=== PATIENT | male | born 2000 | race Caucasian/White ===

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

== ENCOUNTER 2020-05-21 11:09 | Outpatient (CLI) | payer BC, SELFPAY ==
--- NOTE | ~2020-05-21 | XR_ITS ---
XR abdomen/kub 1V DATE: 05/21/2020 11:27 INDICATION: Left renal stone TECHNIQUE: AP projection, 2 views COMPARISON: 06/26/2019 KUB FINDINGS: There are multiple calcifications overlying the lower pole of the left kidney large calcifi ed calculus overlying left renal pelvis noted on 06/26/2019 is no longer evident. No right renal calci fied calculi are evident. No calcified calculi overlying the ureters. The foot shadows are intact. No visceromegaly is evident. No evidence of bowel obstruction. Included skeletal structures are unremarkable. IMPRESSION: Lower pole left nephrolithiasis Reviewed, dictated and finalized at Location A. Reviewed, dictated and finalized at location A. ANALYST
== END 2020-05-21 11:10 | disposition home or self-care (01) ==
LOC: ANHIMG 11:18
PROVIDERS: PCP Internal Medicine; Visit Provider Urology
DX: N20.0 Calculus of kidney (principal)
CPT/HCPCS: 74018

== ENCOUNTER → 2020-06-24 09:51 | Outpatient (CLI) | payer BC, SELFPAY ==
--- NOTE | ~2020-06-24 | XR_ITS ---
EXAMINATION: XR abdomen/kub 1V INDICATION: Left renal stone TECHNIQUE: Supine views of the abdomen were obtained on 2 radiographs. COMPARISON: 05/21/2020 FINDINGS: There is a 9 mm stone in the lower pole of the left kidney. A 7 mm stone is present in the upper pole of the left kidney. No additional urinary tract calculi are identified. The bowel gas kwaku she is normal. The visualized osseous structures are unremarkable. IMPRESSION: 1. Left nephrolithiasis. Reviewed, dictated and finalized at location A. 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 Left nephrolithiasis.
--- NOTE | ~2020-06-24 | CT_ITS ---
EXAMINATION: CT abdomen pelvis wo con DATE: 06/24/2020 10:07 INDICATION: Left renal stone TECHNIQUE: Computed tomography (CT) of the abdomen and pelvis was performed without intravenous contr ast. The dose-length product (DLP) was 604.62 mGy-cm. Automated exposure control and iterative recons truction technique were employed. COMPARISON: 06/24/2019 FINDINGS: The lung bases are clear. The heart size is normal. The liver is diffusely low in attenuati on when compared with the spleen, consistent with hepatic steatosis. The spleen, pancreas, gallbladde r, and adrenal glands are normal. There is a 6 mm stone in the left kidney upper pole and a 10 mm sto ne in the left kidney lower pole. No stones are present in the right kidney, the ureters, or the blad makenzie. There is no hydronephrosis or hydroureter. No pathologically enlarged abdominal or pelvic lymph nodes are identified. There is no free intraperitoneal gas or evidence of bowel obstruction. The appe ndix is normal. There is a small fat-containing umbilical hernia. The visualized osseous structures a re unremarkable. IMPRESSION: 1. Nonobstructing left nephrolithiasis. 2. Diffuse hepatic steatosis. Reviewed, dictated and finalized at location A. CTOR ORGANIZATIONAL
== END ==
PROVIDERS: Visit Provider Urology
DX: N20.0 Calculus of kidney (principal); K76.0 Fatty (change of) liver, not elsewhere classified
CPT/HCPCS: 74018; 74176

== ENCOUNTER 2020-11-30 12:20 | Outpatient (CLI) | payer BC, SELFPAY ==
--- NOTE | ~2020-11-30 | XR_ITS ---
XR abdomen/kub 1V DATE: 11/30/2020 12:46 INDICATION: Left renal stone TECHNIQUE: 2 AP projections of the abdomen COMPARISON: 06/24/2020 KUB FINDINGS: Prominent calcification or calcifications overlying the left ureterovesical junction, appar ently previously situated in the upper pole left kidney on 06/24/2020. Stable prominent lower pole left renal calcified calculus. The psoas shadows are intact. No visceromegaly is evident. There is no evidence of bowel obstruction. Included skeletal structures are unremarkable. IMPRESSION: Prominent calcified calculus or calculi at left ureterovesical junction, displaced from t he upper pole left kidney since 06/24/2020 Stable prominent lower pole left renal calcified calculus or calculi Reviewed, dictated and finalized at Location A. Reviewed, dictated and finalized at location A. IMPRESSION: Prominent calcified calculus or calculi at left ureterovesical junc tion, displaced from the upper pole left kidney since 06/24/2020 Stable prominent lower pole left renal calcified calculus or calculi
== END 2020-11-30 12:21 | disposition home or self-care (01) ==
LOC: ANHIMG 12:27
PROVIDERS: Visit Provider Urology
DX: N20.0 Calculus of kidney (principal); N28.89 Other specified disorders of kidney and ureter
CPT/HCPCS: 74018

== ENCOUNTER 2020-12-03 10:58 | Outpatient (CLI) | payer BC, SELFPAY | END 2020-12-03 10:59 | disposition home or self-care (01) | PROVIDERS: Visit Provider Urology | DX: Z01.818 Encounter for other preprocedural examination (principal); N20.0 Calculus of kidney | CPT/HCPCS: 87086 ==

== ENCOUNTER 2020-12-07 02:14 | Day surgery (SDC) | payer BC, SELFPAY ==
[2020-12-02 13:32] VITALS: BMI 35.4
--- NOTE | 2020-12-06 13:44 | WPDANESEPPF ---
Anes - Initial Pre Proc Eval Procedure: Operation Date: 12/07/20 13:30 Proposed Procedures p Cystoscopy, Left Ureteroscopy, Stone Extraction, Possible Retrograde Pyelogram, Possible Stent Placement, - Tim Maldonado MD s Possible Holmium Laser Procedure - Tim Maldonado MD Date/Time: 12/06/20 13:44 Surgeon: Tim Maldonado MD Pre Op Diagnosis: left ureteral stones, left renal stones Patient Data Age: 20 Gender: M Height: 1.6 m Weight: 90.75 kg Allergies Allergy/AdvReac Type Severity Reaction Status Date / Time amoxicillin [From Augmentin] AdvReac Mild Rash Verified 12/07/20 10:35 clavulanic acid AdvReac Mild Rash Verified 12/07/20 10:35 [From Augmentin] Home Medications Medication Instructions Recorded Confirmed Type alprazolam 0.25 mg PO PRN PRN 12/02/20 12/07/20 History dexmethylphenidate [Focalin XR] 20 mg PO 5XW 12/02/20 12/07/20 History multivitamin,gv-oeti-luadaore 1 tablet PO DAILY 12/02/20 12/02/20 History [Complete Multivitamin] sertraline 50 mg PO QAM 12/02/20 12/07/20 History tamsulosin 0.4 mg PO DAILY 12/02/20 12/07/20 History tramadol 50 mg PO Q6H PRN 12/02/20 12/07/20 History acetaminophen 1,000 mg PO Q4-6H PRN 12/07/20 12/07/20 History sulfamethoxazole-trimethoprim 1 tablet PO BID 12/07/20 12/07/20 History Patient hx anesthesia problems: none Family hx anesthesia problems: none PMFSH Past Medical History Medical History (Updated 12/06/20 @ 13:44 by Vin Bolivar MD) ADHD Anxiety Asthma Kidney stones Obesity Surgical History Surgical History (Updated 06/24/19 @ 11:39 by Dmitriy Wade) No significant past surgical history Social History Social History (Updated 06/24/19 @ 11:39 by Dmitriy Wade) Smoking status: Never smoker Living arrangements: with family Spiritual care concerns: No Anes - Eval Final PreProcedure Day of Procedure 12/06/20 13:44 Patient weight: obese Heart: regular rate and rhythm Lungs: clear to auscultation and normal air movement Airway: Mallampati scale class II Neurological: alert and oriented Last oral intake: >/= 8 hours ASA classification: III Emergent: no Anesthetic plan: proceed Anesthesia type and monitoring: general LMA Informed Consent: The patient's anesthetic plan and its attendant risks and benefits were discussed with the patient/family/POA. Questions were solicited and answers provided to the satisfaction of the patient/family/POA.
[2020-12-07] VITALS (8 sets, daily range): BP systolic 107–132; BP diastolic 62–84; PULSE 76–106; RESP 11–20; TEMP 36.3–36.6; O2SAT 95–99
--- NOTE | ~2020-12-07 | CT_ITS ---
EXAMINATION: CT abdomen pelvis wo con DATE: 12/07/2020 13:34 INDICATION: Left flank pain. TECHNIQUE: Computed tomography (CT) of the abdomen and pelvis was performed without intravenous contr ast. Automated exposure control and iterative reconstruction technique were employed. The dose-length product was 320.03 mGy-cm. COMPARISON: CT abdomen and pelvis 06/24/2020 FINDINGS: The visualized portions of the lung bases are clear without pneumonia or pleural effusion. The heart size is normal. No pericardial effusion. There is a 17 mm cyst to the left of the heart, co nsistent with a pericardial cyst. There is diffuse hepatic steatosis. The gallbladder, spleen, pancre as, adrenal glands, and right kidney are normal. There are 8 mm and 5 mm stones in left kidney. There are 6 mm and 5 mm stones at left ureterovesicular junction with mild left hydroureter. There are no dilated loops of bowel. The appendix is normal. There are no pathologically enlarged lymph nodes. The re is no free intraperitoneal fluid. There are Schmorl's nodes at multiple levels in the spine. IMPRESSION: 1. 6 mm and 5 mm stones at left ureterovesicular junction with mild left hydroureter. 2. Nonobstructing left kidney stones. Reviewed, dictated and finalized at location A. IMPRESSION: 1. 6 mm and 5 mm stones at left ureterovesicular junction with mild left hydrou reter. 2. Nonobstructing left kidney stones.
--- NOTE | ~2020-12-07 | XR_ITS ---
EXAMINATION: XR retrograde pyelo w/stent LT DATE: 12/07/2020 15:14 INDICATION: Left ureteral stones. TECHNIQUE: 6 intraoperative fluoroscopic views of the abdomen and pelvis were obtained. I was not pre sent. Fluoroscopy exposure time was 27 seconds. COMPARISON: CT abdomen and pelvis 12/07/2020 FINDINGS: There are stones at left ureterovesicular junction and in left kidney. The stones in left u reterovesicular junction are removed. The final images demonstrate a left internal ureteral stent in expected position. IMPRESSION: 1. Removal of stones at left ureterovesicular junction. 2. Stones in left kidney. 3. Left internal ureteral stent in expected position. Reviewed, dictated and finalized at location A.
[2020-12-07] MEDS: LACTATED RINGERS 1,000 ML 30 ML IV CONT (11:05)
--- NOTE | 2020-12-07 12:23 | SUR.PREOP ---
1215-PT AND MOM AWARE SURGEON DELAYS SELF ADDITIONAL 1 HOUR.
--- NOTE | 2020-12-07 13:13 | WPDHPUPDATE1 ---
History and Physical Update Update Date/Time: 12/07/20 13:13 History and Physical has been reviewed, including an updated exam of the patient. There are NO changes in the patient's condition. Risks, benefits, and alternatives have been discussed and questions answered. Patient agrees to proceed with procedure. Proceed with cysto, left ureteroscopy , stone extraction, rpg, possible holmium laser.
--- NOTE | 2020-12-07 13:32 | SUR.PREOP ---
1320-TO CT SCAN PER W/C. 1330-RETURNED FROM CT SCAN.
[2020-12-07] MEDS: ceFAZolin 2 GM/D5W 50 ML 2 GM/50 ML BAG IVPB (14:38)
[2020-12-07] MEDS: LIDOCAINE HCL 2% GEL UROJET 10 ML PKG MUCOUS MEM (15:01)
--- NOTE | 2020-12-07 15:17 | W.PM.PROC2 ---
Procedure Note - Detailed Date of Procedure 12/07/20 Pre-op Diagnosis left ureteral stones, left renal stones Post-op Diagnosis same Procedure Performed Cystoscopy, left retrograde pyelogram, left ureteroscopy with holmium laser stone extraction left stent placement, urethral dilation Surgeon Tim Maldonado MD Anesthesia general Description of Procedure Patient is taken the operative suite correctly identified. Once anesthesia was obtained was placed in dorsal lithotomy position and prepped and draped usual sterile fashion. Nineteen [place] scope would not pass and thus we needed to dilate the meatus up to 22 [place]. A 19 [place] scope was then placed. Bladder was inspected its entirety there was no tumor. Left orifice was cannulated with a guidewire. We dilated with 8 [place] dilator. A rigid ureteral scope was then inserted but the stone was too large to retrieve 1 piece. Actually were 2 stones there 6 mm in a 5 mm. Using a 273 micron fiber we fragmented the stone multiple pieces. We sent some of these for analysis. Reinspection revealed no residual stones. Pyelogram was then performed to confirm placement of the stent. Proximal end was coiled in the renal pelvis distal in the bladder. Bladder was drained. 2% viscous lidocaine was inserted urethra patient is taken recovery stable condition. He will follow up in a week's time for stent removal. He will eventually need lithotripsy of this left lower pole stone. Drains Yes Packing No Pathology yes Complications No immediate complications Condition stable Disposition PACU
[2020-12-07] MEDS: fentaNYL CITRATE INJ (*CRX) 100 MCG/2 ML VIAL 25 MCG IV PUSH ×5 (15:46→16:54)
[2020-12-07] MEDS: oxyCODONE HCL (*CRX) 5 MG TAB IR PO (16:37)
== END 2020-12-07 17:05 | disposition home or self-care (01) ==
PROVIDERS: Visit Provider Urology
PROC: (CPT 52352; principal; 2020-12-07 12:30)
PROC: (CPT 52356; 2020-12-07 12:30)
DX: N20.2 Calculus of kidney with calculus of ureter (principal); J45.909 Unspecified asthma, uncomplicated; F90.9 Attention-deficit hyperactivity disorder, unspecified type; E66.9 Obesity, unspecified; Z68.36 Body mass index [BMI] 36.0-36.9, adult; Z79.899 Other long term (current) drug therapy
CPT/HCPCS: 52356; 74176; 74420; 82365; 87086; 88300; A9270; C1769; C2617; J0690; J1100; J2250; J2405; J2704; J3010; J7120; Q9966

== ENCOUNTER 2021-02-08 15:45 | Outpatient (CLI) | payer BC, SELFPAY ==
[2021-02-08 16:17] LABS: INR 0.9; Prothrombin Time 12.4 Seconds (11.1-14.7)
[2021-02-08 16:25] LABS: Add Urine Microscopic? YES; Appearance Urine Clear (Clear); Bilirubin Urine Negative (Negative); Blood Urine 2+ (Negative); Color Urine Yellow (Yellow); Glucose Urine UA Negative (Negative); Ketones Urine Negative (Negative); Leukocyte Esterase Ur Trace LEU/UL (Negative); Mucus Urine Rare /lpf; Nitrate Urine Negative (Negative); Protein Urine Negative (Negative); Specific Grav Ur 1.011 (1.001-1.035); Urobilinogen Urine Negative mg/dL (<2.0)
== END 2021-02-08 15:46 | disposition home or self-care (01) ==
LOC: ANHLAB 15:47
PROVIDERS: Visit Provider Urology
DX: Z01.818 Encounter for other preprocedural examination (principal); N20.0 Calculus of kidney
CPT/HCPCS: 36415; 81001; 85610; 85730; 87086

== ENCOUNTER 2021-02-11 01:36 | Day surgery (SDC) | payer BC, SELFPAY ==
[2021-02-07 12:53] VITALS: BMI 34.0
--- NOTE | ~2021-02-11 | XR_ITS ---
EXAMINATION: XR abdomen/kub 1V INDICATION: Nephrolithiasis TECHNIQUE: Supine views of the abdomen were obtained on 2 radiographs. COMPARISON: 11/30/2020 FINDINGS: There is a 1.4 cm stone of the left kidney lower pole. No stones are identified in the righ t kidney or along the expected courses of the ureters or bladder. The visualized lung bases are clear . The bowel gas pattern is normal. IMPRESSION: 1. Stable left nephrolithiasis. Reviewed, dictated and finalized at location A.
[2021-02-11] MEDS: LACTATED RINGERS 1,000 ML 30 ML IV CONT (07:20)
--- NOTE | 2021-02-11 07:21 | WPDHPUPDATE1 ---
History and Physical Update Update Date/Time: 02/11/21 07:21 History and Physical has been reviewed, including an updated exam of the patient. There are NO changes in the patient's condition. Risks, benefits, and alternatives have been discussed and questions answered. Patient agrees to proceed with procedure.
[2021-02-11 07:30] VITALS: BP 111/61; PULSE 83; RESP 16; TEMP 36.5; O2SAT 98
--- NOTE | 2021-02-11 07:56 | WPDANESEPPF ---
Anes - Initial Pre Proc Eval Procedure: Operation Date: 02/11/21 08:30 Proposed Procedures p Left Ureteral Extracorporeal Shock Wave Lithotripsy - Tim Maldonado MD Date/Time: 02/11/21 07:56 Surgeon: Tim Maldonado MD Pre Op Diagnosis: left ureteral stone Patient Data Age: 20 Gender: M Height: 1.63 m Weight: 92.4 kg Last Vital Signs Temp 36.5 C 02/11/21 07:30 Pulse 83 02/11/21 07:30 Resp 16 02/11/21 07:30 BP 111/61 02/11/21 07:30 Pulse Ox 98 02/11/21 07:30 Allergies Allergy/AdvReac Type Severity Reaction Status Date / Time amoxicillin [From Augmentin] AdvReac Mild Rash Verified 02/11/21 07:03 clavulanic acid AdvReac Mild Rash Verified 02/11/21 07:03 [From Augmentin] Home Medications Medication Instructions Recorded Confirmed Type alprazolam 0.25 mg PO PRN PRN 12/02/20 02/11/21 History dexmethylphenidate [Focalin XR] 10 mg PO BID 12/02/20 02/11/21 History multivitamin,do-ygdp-fawbdptj 1 tablet PO DAILY 12/02/20 02/11/21 History sertraline 50 mg PO QAM 12/02/20 02/11/21 History tamsulosin 0.4 mg PO DAILY 12/02/20 02/11/21 History tramadol 50 mg PO Q6H PRN 12/02/20 02/07/21 History acetaminophen 1,000 mg PO Q4-6H PRN 12/07/20 02/07/21 History Patient hx anesthesia problems: none Family hx anesthesia problems: none Results Review: All pre-operative results and documents have been reviewed as part of the pre-operative evaluation. [facility] Past Medical History Medical History (Updated 12/06/20 @ 13:44 by Vin Bolivar MD) ADHD Anxiety Asthma Kidney stones Obesity Surgical History Surgical History (Updated 06/24/19 @ 11:39 by Dmitriy Wade) No significant past surgical history Social History Social History (Updated 06/24/19 @ 11:39 by Dmitriy Wade) Smoking status: Never smoker Alcohol intake: current Drinks per week: 1 Substance use: never Living arrangements: with family Spiritual care concerns: No Anes - Eval Final PreProcedure Day of Procedure 02/11/21 07:56 Patient weight: obese Heart: regular rate and rhythm Lungs: clear to auscultation and normal air movement Airway: Mallampati scale class II Neurological: alert and oriented Last oral intake: >/= 8 hours ASA classification: III Emergent: no Anesthetic plan: proceed Anesthesia type and monitoring: general LMA and standard monitoring Results Review: All pre-operative results and documents have been reviewed as part of the pre-operative evaluation. Informed Consent: The patient's anesthetic plan and its attendant risks and benefits were discussed with the patient/family/POA. Questions were solicited and answers provided to the satisfaction of the patient/family/POA.
--- NOTE | 2021-02-11 09:23 | W.PM.PROC2 ---
Procedure Note - Detailed Date of Procedure 02/11/21 Pre-op Diagnosis Left renal calculus Post-op Diagnosis same Procedure Performed ESWL left renal calculus Surgeon Tim Maldonado MD Anesthesia general Description of Procedure Patient is taken the operative suite correctly identified. Once anesthesia was obtained the left renal stone was localized in both planes. Two thousand five hundred shocks were given stone. Patient tolerated procedure well without complications taken recovery stable condition. He will follow up in 7-10 days with a KUB. Drains No Packing No Pathology none sent Complications No immediate complications Condition stable Disposition PACU
[2021-02-11 09:29] VITALS: BP 108/90; PULSE 108; RESP 20; TEMP 36; O2SAT 90
[2021-02-11 09:45] VITALS: BP 109/52; PULSE 90; RESP 18; O2SAT 92
[2021-02-11 10:00] VITALS: BP 118/73; PULSE 76; RESP 10; O2SAT 90
[2021-02-11 10:15] VITALS: BP 116/77; PULSE 88; RESP 16
[2021-02-11 10:50] VITALS: BP 112/69; PULSE 69; RESP 16
== END 2021-02-11 11:15 | disposition home or self-care (01) ==
PROVIDERS: Visit Provider Urology
PROC: (CPT 50590; principal; 2021-02-11 08:30)
DX: N20.0 Calculus of kidney (principal); F90.9 Attention-deficit hyperactivity disorder, unspecified type; F41.9 Anxiety disorder, unspecified; J45.909 Unspecified asthma, uncomplicated; E66.9 Obesity, unspecified; Z68.35 Body mass index [BMI] 35.0-35.9, adult
CPT/HCPCS: 50590; 36415; 74018; 81001; 85610; 85730; 87086; J1100; J2250; J2270; J2405; J2704; J7120

== ENCOUNTER 2021-02-22 15:33 | Outpatient (CLI) | payer BC, SELFPAY ==
--- NOTE | ~2021-02-22 | XR_ITS ---
EXAMINATION: XR abdomen/kub 1V INDICATION: Left nephrolithiasis status post lithotripsy TECHNIQUE: Supine views of the abdomen were obtained on 2 radiographs. COMPARISON: 02/11/2021 FINDINGS: There is interval decrease in size of previously described left kidney lower pole stone whi ch now measures 7 mm, previously 14 mm. No stone fragments are identified along the expected course o f the left ureter. No additional urolithiasis is identified. The bowel gas pattern is normal. IMPRESSION: 1. Decrease in size in left nephrolithiasis, consistent with interval lithotripsy. Reviewed, dictated and finalized at location B. ADMINISTRATOR IMPRESSION: 1. Decrease in size in left nephrolithiasis, consistent with interval lithotrip sy.
== END 2021-02-22 15:34 | disposition home or self-care (01) ==
LOC: ANHIMG 15:37
PROVIDERS: Visit Provider Urology
DX: N20.0 Calculus of kidney (principal)
CPT/HCPCS: 74018

== ENCOUNTER 2021-04-03 04:36 | Emergency (ER) | payer BC, SELFPAY ==
[2021-04-03] VITALS (8 sets, daily range): BP systolic 132–147; BP diastolic 74–96; PULSE 78–97; RESP 16–23; TEMP 36.1–36.7; O2SAT 99–100
--- NOTE | ~2021-04-03 | CT_ITS ---
EXAMINATION: CT abdomen pelvis wo con DATE: 04/03/2021 05:46 INDICATION: Right flank pain. TECHNIQUE: Computed tomography (CT) of the abdomen and pelvis was performed without intravenous contr ast. Automated exposure control and iterative reconstruction technique were employed. The dose-length product was 371.83 mGy-cm. COMPARISON: CT abdomen and pelvis 12/07/2020 FINDINGS: The visualized portions of the lung bases demonstrate minimal atelectasis. No pleural effus ion. The heart size is normal. No pericardial effusion. There is diffuse hepatic steatosis. The gallb ladder, spleen, pancreas, and adrenal glands are normal. There is mild right hydronephrosis and hydro ureter. There is a 2 mm stone in distal right ureter. There are 5 mm and 6 mm stones in left kidney. A urachal remnant is noted. There are no dilated loops of bowel. The appendix is normal. There are no pathologically enlarged lymph nodes. There is no free intraperitoneal fluid. There are benign bone i slands in the pelvis. There is mild thoracolumbar spondylosis. IMPRESSION: 1. 2 mm stone in distal right ureter with mild right hydronephrosis and hydroureter. 2. Nonobstructing left kidney stones. Reviewed, dictated and finalized at location A. LATE FITTER IMPRESSION: 1. 2 mm stone in distal right ureter with mild right hydronephrosis and hydrour eter. 2. Nonobstructing left kidney stones.
--- NOTE | 2021-04-03 05:23 | ED.GENADULT ---
HPI - General Adult General Chief complaint: Urogenital-Male Stated complaint: Right flank pain, difficulty urination Time Seen by Provider: 04/03/21 05:15 History of Present Illness HPI narrative: Patient 21-year-old male the presents the emergency department with chief complaint of right flank pain. Patient reports the pain started approximately 330 this morning states that has had history of kidney stones patient reports the pain is not improved by anything or is worsened by anything Related Data Home Medications Medication Instructions Recorded Confirmed alprazolam 0.25 mg PO PRN PRN 12/02/20 02/11/21 dexmethylphenidate [Focalin XR] 10 mg PO BID 12/02/20 02/11/21 multivitamin,iw-[id number]-[id number] 1 tablet PO DAILY 12/02/20 02/11/21 sertraline 50 mg PO QAM 12/02/20 02/11/21 tamsulosin 0.4 mg PO DAILY 12/02/20 02/11/21 tramadol 50 mg PO Q6H PRN 12/02/20 02/07/21 acetaminophen 1,000 mg PO Q4-6H PRN 12/07/20 02/07/21 Allergies Allergy/AdvReac Type Severity Reaction Status Date / Time amoxicillin [From Augmentin] AdvReac Mild Rash Verified 04/03/21 04:43 clavulanic acid AdvReac Mild Rash Verified 04/03/21 04:43 [From Augmentin] [facility] Past Medical History Medical History (Updated 04/03/21 @ 06:53 by Ebenezer Nichols MD) ADHD Anxiety Asthma Kidney stones Obesity Surgical History Surgical History (Updated 06/24/19 @ 11:39 by Dmitriy Wade) No significant past surgical history Social History Social History (Updated 06/24/19 @ 11:39 by Dmitriy Wade) Smoking status: Never smoker Alcohol intake: current Drinks per week: 1 Substance use: never Spiritual care concerns: No Course Course Emergency Course: CT scan shows a 2 mm stone at the UVJ Vital Signs Vital signs: Vital Signs Temperature 36.7 C 04/03/21 04:40 Pulse Rate 97 04/03/21 04:40 Respiratory Rate 20 04/03/21 04:40 Blood Pressure 136/95 H 04/03/21 04:40 Pulse Oximetry 99 04/03/21 04:40 Temperature 36.7 C 04/03/21 04:40 Pulse Rate 82 04/03/21 05:21 Respiratory Rate 16 04/03/21 05:21 Blood Pressure 132/74 04/03/21 05:21 Pulse Oximetry 100 04/03/21 05:21 Medical Decision Making Vital Signs Vital Signs: Vital Signs Temperature 36.7 C 04/03/21 04:40 Pulse Rate 97 04/03/21 04:40 Respiratory Rate 20 04/03/21 04:40 Blood Pressure 136/95 H 04/03/21 04:40 Pulse Oximetry 99 04/03/21 04:40 Temperature 36.7 C 04/03/21 04:40 Pulse Rate 82 04/03/21 05:21 Respiratory Rate 16 04/03/21 05:21 Blood Pressure 132/74 04/03/21 05:21 Pulse Oximetry 100 04/03/21 05:21 Lab Data Result diagrams: 04/03/21 05:26 04/03/21 05:26 Labs: Lab Results 04/03/21 04/03/21 04/03/21 Range/Units 05:23 05:26 05:26 WBC 10.3 H (4.5-10.0) K/mm3 RBC 4.64 (4.6-6.20) M/mm3 Hgb 14.0 (14.0-18.0) g/dL Hct 42.5 (42.0-52.0) % MCV 91.6 (80-100) fl MCH 30.2 (26-34) pg MCHC 32.9 (32-36) g/dl RDW 12.3 (11.5-14.5) % Plt Count 263 (150-375) k/mm3 MPV 10.1 (7.4-10.4) fl Immature Gran % (Auto) 0.8 H (0-0.5) % Neut % (Auto) 67.4 (45.5-73.1) % Lymph % (Auto) 22.3 (18.3-44.2) % [place] % (Auto) 6.9 (2.6-8.5) % Eos % (Auto) 2.1 (0-4.4) % Baso % (Auto) 0.5 (0.2-1.2) % Lymph # (Auto) 2.30 (0.9-3.2) K/mm3 [place] # (Auto) 0.7 H (0.1-0.6) K/mm3 Eos # (Auto) 0.2 (0-0.3) K/mm3 Baso # (Auto) 0.1 (0.0-0.1) K/mm3 Abs Immat Gran (auto) 0.08 H (0.00-0.031) K/mm3 Absolute Neuts (auto) 7.0 H (1.3-6.7) K/mm3 Absolute Nucleated RBC 0.0 (0.0-0.012) K/mm3 Nucleated RBC % 0.0 (0.0-0.2) % Sodium 135 L (137-145) mmol/L Potassium 3.8 (3.4-5.0) mmol/L Chloride 98 (98-107) mmol/L Carbon Dioxide 29 (22-30) mmol/L Anion Gap 8 (8-16) mmol/L BUN 13 (9-20) mg/dL Creatinine 0.90 (0.7-1.3) mg/dL Estim Creat Clear Calc Not Reportable Est
[2021-04-03] MEDS: SODIUM CHLORIDE 0.9% IV 1,000 ML 999 ML IV CONT (05:31)
[2021-04-03] MEDS: ONDANSETRON INJ 4 MG/2 ML VIAL IV PUSH ×2 (05:31→06:35)
[2021-04-03] MEDS: MORPHINE SULFATE (*CRX) 4 MG/ML INJ IV PUSH ×2 (05:32→06:36)
[2021-04-03 05:33] LABS: Basophils Absolute Auto 0.1 K/mm3 (0.0-0.1); Basophils Percent Auto 0.5 % (0.2-1.2); Eosinophils Absolute Auto 0.2 K/mm3 (0-0.3); Eosinophils Percent Auto 2.1 % (0-4.4); Hematocrit 42.5 % (42.0-52.0); Immature Granulocyte Absolute 0.08 K/mm3 (0.00-0.031); Immature Granulocyte Percent A 0.8 % (0-0.5); Lymphocytes Percent Auto 22.3 % (18.3-44.2); Mean Corpuscular HGB Conc 32.9 g/dl (32-36); Mean Corpuscular Hemoglobin 30.2 pg (26-34); Mean Corpuscular Volume 91.6 fl (80-100); Mean Platelet Volume 10.1 fl (7.4-10.4); Monocytes Absolute Auto 0.7 K/mm3 (0.1-0.6); Monocytes Percent Auto 6.9 % (2.6-8.5); Neutrophils Percent Auto 67.4 % (45.5-73.1); Platelet Count Result 263 k/mm3 (150-375); Red Blood Count 4.64 M/mm3 (4.6-6.20); Red Cell Distribution Width 12.3 % (11.5-14.5); White Blood Count 10.3 K/mm3 (4.5-10.0)
[2021-04-03 05:41] LABS: Add Urine Microscopic? YES; Appearance Urine Cloudy (Clear); Bacteria Urine Trace /hpf; Bilirubin Urine Negative (Negative); Blood Urine 3+ (Negative); Calcium Oxalate Crystals Urine Many /hpf; Color Urine Yellow (Yellow); Glucose Urine UA Negative (Negative); Ketones Urine Negative (Negative); Leukocyte Esterase Ur Negative LEU/UL (Negative); Mucus Urine Rare /lpf; Nitrate Urine Negative (Negative); Protein Urine 1+ mg/dL (Negative); RBC Urine >75 /hpf (0-2); Specific Grav Ur 1.026 (1.001-1.035)
[2021-04-03 05:44] LABS: Alanine Aminotransferase 59 U/L (4-50); Albumin Level 4.4 g/dL (3.5-5.1); Alkaline Phosphatase 65 U/L (38-126); Anion Gap 8 mmol/L (8-16); Aspartate Amino Transferase 30 U/L (17-59); Bilirubin,Total 0.4 mg/dL (0.2-1.3); Blood Urea Nitrogen 13 mg/dL (9-20); Calcium 9.4 mg/dL (8.4-10.2); Carbon Dioxide 29 mmol/L (22-30); Chloride 98 mmol/L (98-107); Estimated Glomerular Filt Rate > 60; Glucose 124 mg/dL (65-110); Lipase 111 U/L (23-300); Potassium 3.8 mmol/L (3.4-5.0); Sodium 135 mmol/L (137-145)
--- NOTE | 2021-04-03 05:56 | PC.NURSE ---
Pt to ED c mother, c/o right flank pain radiating from rlq, wrapping around to back. hx of kidney stones w stent placement and prior lithotripsy. took 400 mg ibuprofen and 100 mg tramadol prior to arrival. also c/o pain c urination. medications given as ordered and pt to ct.
== END 2021-04-03 07:07 | disposition home or self-care (01) ==
PROVIDERS: Emergency Provider Emergency Medicine
DX: N13.2 Hydronephrosis with renal and ureteral calculous obstruction (principal); F90.9 Attention-deficit hyperactivity disorder, unspecified type; F41.9 Anxiety disorder, unspecified; J45.909 Unspecified asthma, uncomplicated; Z87.442 Personal history of urinary calculi; E66.9 Obesity, unspecified
CPT/HCPCS: 36415; 74176; 80053; 81001; 83690; 85025; 96361; 96374; 96375; 96376; 99284; J2270; J2405; J7030

== ENCOUNTER 2021-09-15 15:51 | Emergency (ER) | payer OTHER, BC, SELFPAY ==
[2021-09-15 16:28] VITALS: BP 126/73; PULSE 88; RESP 16; TEMP 36.2; O2SAT 99
--- NOTE | 2021-09-15 16:41 | ED.LOWEXIN ---
HPI - Extremity Injury (Lower) General Chief Complaint: Extremity Injury, Lower Stated Complaint: left knee injury Time Seen by Provider: 09/15/21 16:41 Source: patient Mode of arrival: ambulatory Limitations: no limitations History of Present Illness HPI Narrative: 21 y/o male presented for 2 abrasions to left knee after injury at 1540 today. States he cut the leg on the blade of a cargo trimmer. 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 Denies pain. He is not UTD on tetanus. Related Data Home Medications Medication Instructions Recorded Confirmed alprazolam 0.25 mg tablet 0.25 mg PO PRN PRN Anxiety 12/02/20 09/15/21 dexmethylphenidate 20 mg 10 mg PO BID 12/02/20 09/15/21 capsule,extended release [id number] (Focalin XR) multivitamin,zv-lziw-ekwtaiyv 1 tablet PO DAILY 12/02/20 09/15/21 sertraline 50 mg tablet 50 mg PO QAM 12/02/20 09/15/21 acetaminophen 500 mg tablet 1,000 mg PO Q4-6H PRN PAIN 12/07/20 09/15/21 Allergies Allergy/AdvReac Type Severity Reaction Status Date / Time amoxicillin [From Augmentin] AdvReac Mild Rash Verified 09/15/21 16:26 clavulanic acid AdvReac Mild Rash Verified 09/15/21 16:26 [From Augmentin] Review of Systems Review of Systems: CONSTITUTIONAL: Denies body aches, fever, chills, or sweats. CARDIOVASCULAR: Denies chest pain, palpitations, or edema. RESPIRATORY: Denies cough or dyspnea. SKIN: left knee wound MUSCULOSKELETAL: Denies back pain, joint pain, or myalgia. [facility] Past Medical History Medical History ADHD Anxiety Asthma Kidney stones Obesity Surgical History Surgical History No significant past surgical history Social History Social History Smoking status: Never smoker Alcohol intake: current Drinks per week: 1 Substance use: never Spiritual care concerns: No Comments At time of signature, I have reviewed and agree with nursing past medical, surgical, social and family history unless otherwise noted. Please see nursing chart for further information. There is no relevant family history pertinent to the presenting complaint Exam Narrative: GENERAL: Well-appearing CHEST: Clear to auscultation. No respiratory distress. HEART: Regular rate and rhythm. SKIN: Warm, dry. Left knee with 2 superficial lacerations; both U-shaped, proximal 2.5 cm, distal 2cm; edges approximated, scant bloody drainage; full ROM. NEURO: Alert and oriented x3. PSYCH: Normal mood and affect Course Course Emergency Course: Patient is aware of diagnosis, understands and agrees to treatment plan. Anticipatory guidance given. Patient agrees to follow-up as directed and is aware of reasons to seek care at the emergency department. Portions of this record may have been created with voice recognition software Level of Care: Express Care Visit Vital Signs Vital signs: Vital Signs Temperature 97.1 F L 09/15/21 16:28 Pulse Rate 88 09/15/21 16:28 Respiratory Rate 16 09/15/21 16:28 Blood Pressure 126/73 09/15/21 16:28 Pulse Oximetry 99 09/15/21 16:28 Oxygen Delivery Room Air 09/15/21 16:28 Temperature 97.1 F L 09/15/21 16:28 Pulse Rate 88 09/15/21 16:28 Respiratory Rate 16 09/15/21 16:28 Blood Pressure 126/73 09/15/21 16:28 Pulse Oximetry 99 09/15/21 16:28 Oxygen Delivery Room Air 09/15/21 16:28 Reviewed Procedures Other Procedure Procedure 1: Other Procedure: left knee lacerations cleansed with sterile water and Primaderm. Neosporin applied, PELON. Tolerated well. MDM - Extremity Injury (Lower) Differential Diagnosis Differential diagnosis: Likely other (skin abrasion, avulsion, laceration) Discharge Plan Discharge Clinical Impression: Skin abrasion Patient Disposition: Home, Self-Care Condition: Stable Instruct
[2021-09-15] MEDS: TETANUS,DIPHTHERIA,AC PERTUSSIS ADULT (0.5 ML) BOOSTRIX IM (17:00)
== END 2021-09-15 17:21 | disposition home or self-care (01) ==
PROVIDERS: Emergency Provider Nurse Practitioner Family; PCP Internal Medicine
DX: S80.212A Abrasion, left knee, initial encounter (principal); W29.3XXA Contact with powered garden and outdoor hand tools and machinery, initial encounter; Z23 Encounter for immunization; J45.909 Unspecified asthma, uncomplicated; F41.9 Anxiety disorder, unspecified; F90.9 Attention-deficit hyperactivity disorder, unspecified type; E66.9 Obesity, unspecified; Z68.39 Body mass index [BMI] 39.0-39.9, adult
CPT/HCPCS: 90471; 90715; 99212; G0463

== ENCOUNTER 2021-11-01 17:32 | Outpatient (CLI) | payer BC, SELFPAY ==
--- NOTE | ~2021-11-01 | XR_ITS ---
EXAM: XR abdomen/kub 1V DATE: 11/01/2021 17:53 HISTORY: LEFT RENAL STONE . COMPARISON: 02/22/2021. CT abdomen pelvis 04/03/2021. FINDINGS: Clear lung bases. Normal bowel gas pattern. No organomegaly. Left lower pole calcification now measures up to 11 mm. Punctate upper pole calcifications in the prior CT not confidently visuali zed. Regional bones and soft tissues normal for age. IMPRESSION: Left nephrolithiasis. Reviewed, dictated and finalized at location K. IMPRESSION: Left nephrolithiasis.
--- NOTE | ~2021-11-01 | CT_ITS ---
EXAMINATION: CT abdomen pelvis wo con DATE: 11/01/2021 18:03 INDICATION: LEFT RENAL STONE TECHNIQUE: Computed tomography (CT) of the abdomen and pelvis was performed without intravenous contr ast. Automated exposure control and iterative reconstruction technique were employed. The dose-length product was 335.01 mGy-cm. COMPARISON: 04/03/2021. FINDINGS: Lower thorax: 10 mm short axis diameter left anterior prepericardial lymph node, unchanged. Liver: Enlarged and fatty infiltrated. Biliary/Gallbladder: Gallbladder is normal. No bile duct dilation. Pancreas: No mass or duct dilation. Spleen: Normal. Adrenals:No mass. Kidneys: No mass or hydronephrosis. 6 x 11 mm nonobstructive left lower pole calcification. GI tract: No small or large bowel dilation. Normal appendix. Mesentery/Peritoneum: No ascites, mass, or free air. Retroperitoneum: No mass. Pelvis: Pelvic organs are within normal limits. Urachal remnant. Soft Tissues: Soft tissues and body wall unremarkable. Bones: No acute osseous finding. IMPRESSION: 1. Nonobstructive, 6 x 11 mm left inferior pole nephrolith. 2. Left anterior preparacardiac lymphadenopathy, a nonspecific finding that can be seen in infectious /inflammatory and neoplastic conditions, including lymphoma. 3. Hepatomegaly with steatosis Reviewed, dictated and finalized at location K. IMPRESSION: 1. Nonobstructive, 6 x 11 mm left inferior pole nephrolith. 2. Left anterior preparacardiac lymphadenopathy, a nonspecific finding that can be seen in infectious/inflammatory and neoplastic conditions, including lympho ma. 3. Hepatomegaly with steatosis
== END 2021-11-01 17:33 | disposition home or self-care (01) ==
PROVIDERS: PCP Internal Medicine; Visit Provider Urology
DX: N20.0 Calculus of kidney (principal); K76.0 Fatty (change of) liver, not elsewhere classified
CPT/HCPCS: 74018; 74176

== ENCOUNTER 2021-11-08 13:01 | Outpatient (CLI) | payer BC, SELFPAY ==
[2021-11-08 13:47] LABS: INR 1.1; Prothrombin Time 13.3 Seconds (11.1-14.7)
[2021-11-08 13:48] LABS: Anion Gap 12 mmol/L (8-16); Blood Urea Nitrogen 14 mg/dL (9-20); Calcium 9.8 mg/dL (8.4-10.2); Carbon Dioxide 29 mmol/L (22-30); Chloride 99 mmol/L (98-107); Estimated Glomerular Filt Rate > 60; Glucose 92 mg/dL (65-110); Partial Thromboplastin Time 28.3 SECONDS (22.3-36.8); Potassium 4.4 mmol/L (3.4-5.0); Sodium 140 mmol/L (137-145)
== END 2021-11-08 13:02 | disposition home or self-care (01) ==
LOC: ANHSURGERY 13:05
PROVIDERS: Anesthesiology; PCP Internal Medicine; Visit Provider Urology
DX: Z01.812 Encounter for preprocedural laboratory examination (principal); N20.0 Calculus of kidney; Z51.81 Encounter for therapeutic drug level monitoring; Z79.899 Other long term (current) drug therapy
CPT/HCPCS: 36415; 80048; 85610; 85730

== ENCOUNTER 2021-11-11 02:41 | Day surgery (SDC) | payer BC, SELFPAY ==
[2021-11-07 14:59] VITALS: BMI 38.9
--- NOTE | 2021-11-07 15:12 | PC.NURSE ---
Report to the Outpatient Waiting Room, entrance under the green pavilion located off [facility], at time 8:30 on date 11/11/21. OR Time: 10:30. - You and your visitor will be asked a series of questions to screen for COVID 19 for your protection. - Only one visitor is allowed at this time. - The patient visitor is requested to leave or wait in car when not with patient. - A mask is required within the hospital. Patients may have clear liquids (water, carbonated beverages, clear teas, apple juice) until 3 hours prior to surgery (7:30) with a maximum of 20 ounces. - No food from midnight until time of surgery Take the following medications with a SIP of water the morning of surgery: SERTRALINE, XANAX AND TYLENOL (IF NEEDED) Medications to discontinue per physician: N/A Date to take last dose: N/A Please no make-up, nail azeri, hairspray, perfume, deodorant, or body powder the day of surgery. No jewelry (including any body piercings) or valuables the day of surgery, leave them at home. Please take a shower or bath the night before, or the morning of, surgery with an antibacterial soap. Wear comfortable, loose fitting clothing. - Jewelry must be removed prior to entering the operating room. Rings and piercings that are not removed may be cut off. - The hospital will not accept responsibility for valuables. - Please leave all valuables, including medications, at home the day of surgery. If you are going home after surgery, a licensed cement mixer driver must drive you home. - NO public transportation without another adult. - We recommend that an adult stay with you for 24 hours following discharge. - We also recommend that you do not drive, make important decision, drink alcoholic beverages, or take any drugs that were not prescribed by your health care provider for at least 24 hours after your discharge time. Follow any additional instructions given to you from your surgeon. If you or anyone in your household have experienced Covid symptoms in the past week, please notify your surgeon or the nurse liaison at the phone number below for possible testing. Telephone instructions given to PT - NUZHAT YBARRA and asked if any additional questions and then verbalized understanding. Patient advised to call surgeon office or pre surgery nurse liaison [phone] if any additional questions.
[2021-11-11] VITALS (8 sets, daily range): BP systolic 110–140; BP diastolic 57–88; PULSE 72–94; RESP 12–16; TEMP 36.3–36.8; O2SAT 92–99
--- NOTE | ~2021-11-11 | XR_ITS ---
EXAMINATION: XR abdomen/kub 1V DATE: 11/11/2021 07:02 INDICATION: Extracorporeal shockwave lithotripsy TECHNIQUE: A supine view of the abdomen on 2 radiographs was obtained. COMPARISON: CT and KUB dated 11/01/2021 FINDINGS: Unchanged 11 mm stone at the lower pole of the left kidney. No other urolithiasis. Normal bowel gas p attern. Lung bases are clear. Heart size is normal. Bones are unremarkable. IMPRESSION: 1. Unchanged 11 mm stone at the lower pole of the left kidney. Reviewed, dictated and finalized at location A.
--- NOTE | 2021-11-11 06:52 | WPDHPUPDATE1 ---
History and Physical Update Update Date/Time: 11/11/21 06:52 History and Physical has been reviewed, including an updated exam of the patient. There are NO changes in the patient's condition. Risks, benefits, and alternatives have been discussed and questions answered. Patient agrees to proceed with procedure.
--- NOTE | 2021-11-11 07:17 | WPDANESEPPF ---
Anes - Initial Pre Proc Eval Procedure: Operation Date: 11/11/21 08:30 Proposed Procedures p Left Extracorporeal Shock Wave Lithotripsy - Abdiel Rodarte MD Date/Time: 11/11/21 07:17 Surgeon: Abdiel Rodarte MD Pre Op Diagnosis: Lt Renal Stone Patient Data Age: 21 Gender: M Height: 1.6 m Weight: 99.79 kg Allergies Allergy/AdvReac Type Severity Reaction Status Date / Time amoxicillin [From Augmentin] AdvReac Mild Rash Verified 11/07/21 14:57 clavulanic acid AdvReac Mild Rash Verified 11/07/21 14:57 [From Augmentin] Home Medications Medication Instructions Recorded Confirmed Type alprazolam 0.25 mg tablet 0.25 mg PO PRN PRN Anxiety 12/02/20 11/07/21 History dexmethylphenidate 20 mg 10 mg PO BID 12/02/20 11/07/21 History capsule,extended release -24 (Focalin XR) sertraline 50 mg tablet 50 mg PO QAM 12/02/20 11/07/21 History acetaminophen 500 mg tablet 1,000 mg PO Q4-6H PRN PAIN 12/07/20 11/07/21 History hydrochlorothiazide 12.5 mg tablet 12.5 mg PO HS 11/07/21 11/07/21 History tamsulosin 0.4 mg capsule 0.4 mg PO DAILY 11/07/21 11/07/21 History Patient hx anesthesia problems: none Family hx anesthesia problems: none Results Review: All pre-operative results and documents have been reviewed as part of the pre-operative evaluation. [facility] Past Medical History Medical History ADHD Anxiety Asthma Kidney stones Obesity Surgical History Surgical History No significant past surgical history Social History Social History Smoking status: Never smoker Alcohol intake: current Drinks per week: 1 Alcohol use details: 2-4/MONTH Substance use: current Substance use type: marijuana Living arrangements: with family Spiritual care concerns: No Anes - Eval Final PreProcedure Day of Procedure 11/11/21 07:17 Patient weight: obese Heart: regular rate and rhythm Lungs: clear to auscultation Airway: Mallampati scale class II Neurological: alert and oriented Last oral intake: >/= 8 hours ASA classification: II Emergent: no Anesthetic plan: proceed Anesthesia type and monitoring: general LMA and standard monitoring Results Review: All pre-operative results and documents have been reviewed as part of the pre-operative evaluation. Informed Consent: The patient's anesthetic plan and its attendant risks and benefits were discussed with the patient/family/POA. Questions were solicited and answers provided to the satisfaction of the patient/family/POA.
[2021-11-11] MEDS: LACTATED RINGERS 1,000 ML 30 ML IV CONT (07:45)
[2021-11-11] MEDS: fentaNYL CITRATE INJ (*CRX) 100 MCG/2 ML VIAL 50 MCG IV PUSH (07:50)
[2021-11-11] MEDS: ceFAZolin 2 GM/D5W 50 ML 2 GM/50 ML BAG IVPB (08:05)
--- NOTE | 2021-11-11 08:14 | W.PM.PROC2 ---
Procedure Note - Detailed Date of Procedure 11/11/21 Pre-op Diagnosis Lt Renal Stone Post-op Diagnosis Same Procedure Performed Left ESWL Surgeon Abdiel Rodarte MD Description of Procedure The patient was brought to the operative suite where he was placed in the supine position on the Dornier lithotripsy table. The focal point of the lithotripter was placed at a 11mm left lower pole renal calculus. A total of 2500 shocks were delivered at a power setting of 4. There appeared to be good fragmentation of the stone. The patient tolerated the procedure well and was taken to the recovery room in good condition. Packing Yes Pathology Yes Complications No immediate complications Condition Stable Disposition PACU
[2021-11-11] MEDS: KETOROLAC 30 MG/ML VIAL (*BKC) IV PUSH (08:15)
== END 2021-11-11 10:30 | disposition home or self-care (01) ==
PROVIDERS: PCP Internal Medicine; Visit Provider Urology
PROC: (CPT 50590; principal; 2021-11-11 08:30)
DX: N20.0 Calculus of kidney (principal); R35.0 Frequency of micturition; R10.9 Unspecified abdominal pain; F90.9 Attention-deficit hyperactivity disorder, unspecified type; F41.9 Anxiety disorder, unspecified; J45.909 Unspecified asthma, uncomplicated; F12.90 Cannabis use, unspecified, uncomplicated; E66.9 Obesity, unspecified; Z68.37 Body mass index [BMI] 37.0-37.9, adult
CPT/HCPCS: 50590; 36415; 74018; 80048; 85610; 85730; J0690; J1100; J1885; J2250; J2405; J2704; J3010; J7120

== ENCOUNTER 2021-11-22 13:10 | Emergency (ER) | payer BC, SELFPAY ==
--- NOTE | ~2021-11-22 | CT_ITS ---
EXAMINATION: CT abdomen pelvis wo con DATE: 11/22/2021 13:58 INDICATION: hx of nephrolithiasis, recent lithotripsy TECHNIQUE: Computed tomography (CT) of the abdomen and pelvis was performed without intravenous contr ast. Automated exposure control and iterative reconstruction technique were employed. The dose-length product was 985.41 mGy-cm. COMPARISON: 11/01/2021. FINDINGS: Lower thorax: Left anterior prepericardial lymph node, now measures 12 mm in short axis diameter. Liver: Enlarged and fatty infiltrated. Biliary/Gallbladder: Gallbladder is normal. No bile duct dilation. Pancreas: No mass or duct dilation. Spleen: Normal. Adrenals:No mass. Kidneys: Decreased size of the left inferior pole calcifications. Left percutaneous nephrostomy tract . GI tract: No small or large bowel dilation. Normal appendix. Mesentery/Peritoneum: No ascites, mass, or free air. Retroperitoneum: No mass. Pelvis: Pelvic organs are within normal limits. Urachal remnant. Soft Tissues: Soft tissues and body wall unremarkable. Bones: No acute osseous finding. IMPRESSION: Left preparacardiac lymph node, increasing in size. Hepatomegaly with steatosis. Reviewed, dictated and finalized at location K. IMPRESSION: Left preparacardiac lymph node, increasing in size. Hepatomegaly with steatosis .
[2021-11-22 13:14] VITALS: BP 137/81; PULSE 98; RESP 16; TEMP 36.7; O2SAT 98
--- NOTE | 2021-11-22 13:17 | ED.MALEGU ---
HPI - Male Genitourinary General Chief complaint: Urogenital-Male Stated complaint: urinating blood, hx kidney stones Time Seen by Provider: 11/22/21 13:17 History of Present Illness HPI Narrative: The patient is a 21-year-old male with a history of nephrolithiasis and recent lithotripsy on November [address] Rodarte, presenting to the emergency department for evaluation of left flank pain and hematuria. Patient states that he has had intermittent hematuria with passing of sand and small stone fragments since lithotripsy on the . Patient reports he had onset of worsening pain in the left lower abdomen this morning and has had a significant amount of hematuria and blood clots. He denies any difficulty with urination, dysuria or hesitancy, no straining with urination. He reports mild flank pain. He denies fever, chills, nausea or vomiting. He did take tramadol this morning without improvement in his symptoms. Related Data Home Medications Medication Instructions Recorded Confirmed alprazolam 0.25 mg tablet 0.25 mg PO PRN PRN Anxiety 12/02/20 11/11/21 dexmethylphenidate 20 mg 10 mg PO BID 12/02/20 11/11/21 capsule,extended release [id number] (Focalin XR) sertraline 50 mg tablet 50 mg PO QAM 12/02/20 11/11/21 acetaminophen 500 mg tablet 1,000 mg PO Q4-6H PRN PAIN 12/07/20 11/11/21 hydrochlorothiazide 12.5 mg tablet 12.5 mg PO HS 11/07/21 11/11/21 tamsulosin 0.4 mg capsule 0.4 mg PO DAILY 11/07/21 11/11/21 Allergies Allergy/AdvReac Type Severity Reaction Status Date / Time amoxicillin [From Augmentin] AdvReac Mild Rash Verified 11/22/21 13:17 clavulanic acid AdvReac Mild Rash Verified 11/22/21 13:17 [From Augmentin] Review of Systems Review of Systems: CONSTITUTIONAL: Denies fever, chills, or sweats CARDIOVASCULAR: Denies chest pain, palpitations, or edema. RESPIRATORY: Denies cough or dyspnea. GASTROINTESTINAL: Reports left lower quadrant abdominal pain without nausea or vomiting, reports left flank pain GENITOURINARY: Reports hematuria without dysuria SKIN: Denies rash or itching. MUSCULOSKELETAL: Denies midline back pain, joint pain, or myalgia. NEUROLOGIC: Denies headache, numbness, or weakness. P PMFSH Past Medical History Medical History ADHD Anxiety Asthma Kidney stones Obesity Surgical History Surgical History No significant past surgical history Social History Social History Smoking status: Never smoker Alcohol intake: current Drinks per week: 1 Alcohol use details: 2-4/MONTH Substance use: current Substance use type: marijuana Spiritual care concerns: No Exam Narrative: GENERAL: Awake, alert, conversant HEAD: Normocephalic, atraumatic. EYES: PERRLA and EOMI. ENT: Nares clear, no rhinorrhea or epistaxis. Mucous membranes moist. NECK: Supple. CHEST: No respiratory distress, breathing even and non labored HEART: Regular rate, sinus rhythm ABDOMEN:Non distended, mild LLQ tenderness, no rebound, rigidity or guarding EXTREMITIES: Normal range of motion. No edema. SKIN: Warm, dry, no rash. NEURO:No focal deficits. Alert and oriented x3 Course Consultations Consultation #1: Urology paged, received return phone call from Dr. Maldonado. He reviewed the patient CT scan and would like patient to have urine culture sent, and placed on Bactrim for three days. Vital Signs Vital signs: Vital Signs Temperature 36.7 C 11/22/21 13:14 Pulse Rate 98 11/22/21 13:14 Respiratory Rate 16 11/22/21 13:14 Blood Pressure 137/81 11/22/21 13:14 Pulse Oximetry 98 11/22/21 13:14 Oxygen Delivery Room Air 11/22/21 13:14 Temperature 36.7 C 11/22/21 13:14 Pulse Rate 89 11/22/21 15:46 Respiratory Rate 16 11/22/21 15:46 Blood Pressure 115/73 11/22/21 15:46 Pulse Oximetry 98 11/22/21 15:46 Oxygen
[2021-11-22 13:33] LABS: Basophils Percent Auto 0.3 % (0.2-1.2); Eosinophils Absolute Auto 0.2 K/mm3 (0-0.3); Eosinophils Percent Auto 2.9 % (0-4.4); Hematocrit 44.7 % (42.0-52.0); Hemoglobin 14.7 g/dL (14.0-18.0); Immature Granulocyte Absolute 0.02 K/mm3 (0.00-0.031); Immature Granulocyte Percent A 0.3 % (0-0.5); Lymphocytes Absolute Auto 2.26 K/mm3 (0.9-3.2); Lymphocytes Percent Auto 33.1 % (18.3-44.2); Mean Corpuscular HGB Conc 32.9 g/dl (32-36); Mean Corpuscular Hemoglobin 29.8 pg (26-34); Mean Corpuscular Volume 90.5 fl (80-100); Mean Platelet Volume 10.1 fl (7.4-10.4); Monocytes Absolute Auto 0.4 K/mm3 (0.1-0.6); Neutrophils Absolute Auto 3.9 K/mm3 (1.3-6.7); Neutrophils Percent Auto 57.4 % (45.5-73.1); Platelet Count Result 269 k/mm3 (150-375); Red Blood Count 4.94 M/mm3 (4.6-6.20); Red Cell Distribution Width 12.3 % (11.5-14.5); White Blood Count 6.8 K/mm3 (4.5-10.0)
[2021-11-22] MEDS: SODIUM CHLORIDE 0.9% IV 1,000 ML 999 ML IV CONT ×2 (13:34→13:50)
[2021-11-22 13:43] LABS: Anion Gap 12 mmol/L (8-16); Blood Urea Nitrogen 11 mg/dL (9-20); Calcium 9.3 mg/dL (8.4-10.2); Carbon Dioxide 31 mmol/L (22-30); Chloride 100 mmol/L (98-107); Estimated CRCL calculation 119 ml/min; Estimated Glomerular Filt Rate > 60; Glucose 103 mg/dL (65-110); Potassium 3.9 mmol/L (3.4-5.0); Sodium 143 mmol/L (137-145)
[2021-11-22 13:49] LABS: Appearance Urine Cloudy (Clear); Bilirubin Urine 1+ (Negative); Blood Urine 3+ (Negative); Color Urine Amber (Yellow); Glucose Urine UA Trace mg/dL (Negative); Ketones Urine Trace mg/dL (Negative); Leukocyte Esterase Ur Trace LEU/UL (Negative); Nitrate Urine Negative (Negative); Protein Urine 2+ mg/dL (Negative); pH Urine 7.5 (5.0-9.0)
[2021-11-22] MEDS: MORPHINE SULFATE (*CRX) 4 MG/ML INJ IV PUSH (13:50)
[2021-11-22] MEDS: ONDANSETRON INJ 4 MG/2 ML VIAL IV PUSH (13:50)
[2021-11-22 13:59] LABS: Mucus Urine Few /lpf; RBC Urine >75 /hpf (0-2)
[2021-11-22 14:03] LABS: Add Urine Microscopic? YES
[2021-11-22] MEDS: SULFAMETHOXAZOLE/TRIMETHOPRIM 800/160 MG DS TABLET 1 TAB PO (14:42)
[2021-11-22 15:46] VITALS: BP 115/73; PULSE 89; RESP 16; O2SAT 98
== END 2021-11-22 15:47 | disposition home or self-care (01) ==
PROVIDERS: Emergency Provider Emergency Medicine; PCP Internal Medicine
DX: R31.9 Hematuria, unspecified (principal); R59.9 Enlarged lymph nodes, unspecified; J45.909 Unspecified asthma, uncomplicated; F90.9 Attention-deficit hyperactivity disorder, unspecified type; F41.9 Anxiety disorder, unspecified; E66.9 Obesity, unspecified; Z68.39 Body mass index [BMI] 39.0-39.9, adult; Z87.442 Personal history of urinary calculi; R16.0 Hepatomegaly, not elsewhere classified; K76.0 Fatty (change of) liver, not elsewhere classified
CPT/HCPCS: 36415; 74176; 80048; 81001; 85025; 87086; 96361; 96374; 96375; 99284; A9270; J2270; J2405; J7030

== ENCOUNTER 2021-11-25 14:22 | Outpatient (CLI) | payer BC, SELFPAY ==
--- NOTE | ~2021-11-25 | XR_ITS ---
XR abdomen/kub 1V 11/25/2021 14:31 Indication: Renal stones Procedure: KUB Comparison: 11/11/2021 Findings: There are stones in the lower pole of the left kidney. Bowel gas pattern is nonobstructive. No acute osseous abnormality. Impression: 1: Left nephrolithiasis. Reviewed, dictated and finalized at location A. Impression: 1: Left nephrolithiasis.
== END 2021-11-25 14:23 | disposition home or self-care (01) ==
PROVIDERS: PCP Internal Medicine; Visit Provider Urology
DX: N20.0 Calculus of kidney (principal)
CPT/HCPCS: 74018

== ENCOUNTER 2022-11-07 10:48 | Outpatient (CLI) | payer BC, SELFPAY ==
--- NOTE | ~2022-11-07 | XR_ITS ---
Supine and upright views of the abdomen Clinical history: Left renal stone COMPARISON: 12/03/2021 Findings: Bowel gas pattern is nonspecific. No evidence for obstruction or free air. Left lower pole renal stones are present, measuring up to approximately 6 mm in diameter Osseous structures are intac t. Impression: Left lower pole renal stones, as above. Reviewed, dictated and finalized at [facility]. Impression: Left lower pole renal stones, as above.
== END 2022-11-07 10:49 | disposition home or self-care (01) ==
LOC: ANHIMG 10:52
PROVIDERS: PCP Internal Medicine; Visit Provider Urology
DX: N20.0 Calculus of kidney (principal)
CPT/HCPCS: 74018

== ENCOUNTER 2022-11-28 09:35 | Outpatient (CLI) | payer BC, SELFPAY ==
--- NOTE | ~2022-11-28 | CT_ITS ---
EXAMINATION: CT abdomen pelvis wo/w con DATE: 11/28/2022 10:22 INDICATION: Gross hematuria. TECHNIQUE: Computed tomography (CT) of the abdomen and pelvis was performed without and with intraven ous contrast using a total of 130 mL Omnipaque-350 intravenous contrast with a double-bolus technique for simultaneous opacification of the renal parenchyma and renal collecting system. Automated exposu re control and iterative reconstruction technique were employed. The dose-length product was 2691.80 mGy-cm. COMPARISON: CT abdomen and pelvis 11/22/2021 FINDINGS: The visualized portions of the lung bases demonstrate mild atelectasis. No pleural effusion. The hear t size is normal. No pericardial effusion. There is a 1.9 cm pericardial cyst on the left. There is d iffuse hepatic steatosis. The gallbladder, spleen, pancreas, and adrenal glands are normal. There is a 5 mm stone in right kidney. There are 2 mm and 7 mm stones in left kidney. The ureters are not comp letely opacified, but are normal. The bladder is normal. There are no dilated loops of bowel. The bon endix is normal. There are no pathologically enlarged lymph nodes. There is no free intraperitoneal f luid. There is mild lumbar spondylosis. IMPRESSION: 1. Bilateral nonobstructing kidney stones. Reviewed, dictated and finalized at location A.
--- NOTE | ~2022-11-28 | XR_ITS ---
EXAMINATION: XR abdomen/kub 1V DATE: 11/28/2022 09:54 INDICATION: Gross hematuria. TECHNIQUE: A supine view of the abdomen on 2 radiographs was obtained. COMPARISON: CT abdomen and pelvis 11/22/2021 FINDINGS: There are no dilated loops of bowel. There is a 4 mm stone in right kidney. There are at le ast 2 stones in left kidney measuring up to 9 mm. IMPRESSION: 1. Bilateral kidney stones. Reviewed, dictated and finalized at location A. IMPRESSION: 1. Bilateral kidney stones.
[2022-11-28 10:04] LABS: Estimated Glomerular Filt Rate > 60
== END 2022-11-28 09:36 | disposition home or self-care (01) ==
LOC: ANHIMG 09:37
PROVIDERS: Visit Provider Nurse Practitioner Adult Health
DX: R31.0 Gross hematuria (principal); N20.0 Calculus of kidney
CPT/HCPCS: 74018; 74178; Q9967

== ENCOUNTER 2022-12-07 10:07 | Outpatient (CLI) | payer BC, SELFPAY ==
--- NOTE | ~2022-12-07 | US_ITS ---
US abdomen limited INDICATION: Nausea, vomiting and diarrhea PROCEDURE: Realtime right upper abdominal ultrasound. COMPARISON: No prior studies for comparison. FINDINGS: The pancreas is normal without focal mass or pancreatic ductal dilation. Liver echotexture is increased, consistent with fatty infiltration. There is normal directional flow in the portal ve in. The gallbladder is normal without stones, gallbladder wall thickening or pericholecystic fluid. Comm on bile duct measures 2 mm. No sonographic Hunter's sign. IMPRESSION: 1: Liver echotexture is increased, consistent with fatty infiltration. Reviewed, dictated and finalized at location L.
== END 2022-12-07 10:08 | disposition home or self-care (01) ==
DX: R11.2 Nausea with vomiting, unspecified (principal); K76.9 Liver disease, unspecified
CPT/HCPCS: 76705

== ENCOUNTER 2022-12-22 01:58 | Day surgery (SDC) | payer BC, SELFPAY ==
[2022-12-21 10:03] VITALS: BMI 39.0
--- NOTE | 2022-12-21 10:47 | PC.NURSE ---
Report to the Outpatient Waiting Room, entrance under the green pavilion located off [facility], at time _0830_ on date 12/22/22_. Planned Procedure Time: _1030 . Time changes happen often and if your time is changed the preop area will call you the afternoon before. - You and your visitor will be asked to self-screen and do not enter if you have any COVID symptoms. - A mask is optional within the hospital at this time. Patients may have clear liquids (water, carbonated beverages, clear teas, apple juice) until 3 hours prior to surgery with a maximum of 20 ounces. - No food from midnight until time of surgery - Take the following medications with a SIP of water the morning of surgery: ALPRAZOLAM DO NOT STOP ANY OF YOUR OTHER PRESCRIPTION MEDICATIONS PRIOR TO SURGERY ?EXCEPT THE FOLLOWING Medications to discontinue per physician N/A Date to take last dose__N/A Please no make-up, nail solomon islander, hairspray, perfume, deodorant, or body powder the day of surgery. No jewelry (including any body piercings) or valuables the day of surgery, leave them at home. Please take a shower or bath the night before, or the morning of, surgery with an antibacterial soap. Wear comfortable, loose fitting clothing. Children are encouraged to wear pajamas. - Jewelry must be removed prior to entering the operating room. Rings and piercings that are not removed may be cut off. - The hospital will not accept responsibility for valuables. - Please leave all valuables, including medications, at home the day of surgery. If you are going home after surgery, a licensed racing driver must drive you home. - NO public transportation without another adult if you receive anesthesia. - We recommend that an adult stay with you for 24 hours following discharge. - We also recommend that you do not drive, make important decision, drink alcoholic beverages, or take any drugs that were not prescribed by your health care provider for at least 24 hours after your discharge time. Follow any additional instructions given to you from your surgeon. If you or anyone in your household have experienced Covid symptoms in the past week, please notify your surgeon or the nurse liaison at the phone number below for possible testing. Telephone instructions given to __SETH and asked if any additional questions and then verbalized understanding. Patient advised to call surgeon office or pre surgery nurse liaison [phone] if any additional questions.
[2022-12-22] VITALS (7 sets, daily range): BP systolic 109–124; BP diastolic 61–85; PULSE 60–74; RESP 16–20; TEMP 36.5–36.8; O2SAT 93–100
--- NOTE | ~2022-12-22 | XR_ITS ---
EXAMINATION: XR abdomen/kub 1V INDICATION: Left-sided kidney stone TECHNIQUE: Supine views of the abdomen were obtained on 2 radiographs. COMPARISON: 11/28/2022 FINDINGS: There is a 9 mm stone of the left kidney lower pole. An adjacent 2 mm stone is also seen. T here is a 4 mm stone of the right kidney lower pole. No additional urolithiasis is identified. The joe wel gas pattern is normal. The visualized lung bases are clear. IMPRESSION: 1. Bilateral nephrolithiasis. Reviewed, dictated and finalized at location B.
--- NOTE | 2022-12-22 06:15 | ECG_ITS ---
Measurements Intervals [place] Rate: 67 P: 53 MT: 130 QRS: 26 QRSD: 93 T: 7 QT: 375 QTc: 397 Interpretive Statements SINUS RHYTHM BORDERLINE ST-T WAVE ABNORMALITY- INFERIOR LEADS BORDERLINE ECG NO PREVIOUS ECG AVAILABLE FOR COMPARISON Electronically Signed On 12-22-2022 9:43:32 CDT by Jeevan Lima D.O.
--- NOTE | 2022-12-22 07:14 | WPDHPUPDATE1 ---
History and Physical Update Update Date/Time: 12/22/22 07:14 History and Physical has been reviewed, including an updated exam of the patient. There are NO changes in the patient's condition. Risks, benefits, and alternatives have been discussed and questions answered. Patient agrees to proceed with procedure.
--- NOTE | 2022-12-22 09:11 | P.PNAN_ITS ---
Anes - Initial Pre Proc Eval Procedure: Operation Date: 12/22/22 10:30 Proposed Procedures p Left Renal Extracorporeal Shock Wave Lithotripsy - Abdiel Rodarte MD Date/Time: 12/22/22 09:11 Surgeon: Abdiel Rodarte MD Pre Op Diagnosis: left renal stone Patient Data Age: 22 Gender: M Height: 1.6 m Weight: 100 kg Allergies Allergy/AdvReac Type Severity Reaction Status Date / Time amoxicillin [From Augmentin] AdvReac Mild Rash Verified 12/22/22 09:41 clavulanic acid AdvReac Mild Rash Verified 12/22/22 09:41 [From Augmentin] Home Medications Medication Instructions Recorded Confirmed Type alprazolam 0.25 mg tablet 0.25 mg PO PRN PRN Anxiety 12/02/20 12/22/22 History sertraline 50 mg tablet 50 mg PO HS 12/02/20 12/22/22 History acetaminophen 500 mg tablet 1,000 mg PO Q4-6H PRN PAIN 12/07/20 12/22/22 History hydrochlorothiazide 12.5 mg tablet 12.5 mg PO BID 11/07/21 12/22/22 History tamsulosin 0.4 mg capsule 0.4 mg PO DAILY 11/07/21 12/22/22 History atorvastatin 10 mg tablet 10 mg PO DAILY 12/21/22 12/22/22 History potassium citrate 15 mEq (1,620 15 meq PO BID 12/21/22 12/22/22 History mg) tablet,extended release Patient hx anesthesia problems: none Family hx anesthesia problems: none Results Review: All pre-operative results and documents have been reviewed as part of the pre- operative evaluation. [facility] Past Medical History Medical History (Updated 12/22/22 @ 09:23 by Govind Fernando DO) ADHD Anxiety Asthma Hyperlipidemia Kidney stones Obesity Surgical History Surgical History No significant past surgical history Social History Social History Smoking status: Never smoker Alcohol intake: current Drinks per week: 1 Alcohol use details: 2-4/MONTH Substance use: current Substance use type: marijuana Last use: 12/20/22 Living arrangements: with family Spiritual care concerns: No Anes - Eval Final PreProcedure Day of Procedure 12/22/22 09:11 Patient weight: obese Heart: regular rate and rhythm Lungs: clear to auscultation Airway: Mallampati scale class II Neurological: alert and oriented Last oral intake: >/= 8 hours ASA classification: III Emergent: no Anesthetic plan: proceed Anesthesia type and monitoring: general LMA and standard monitoring Results Review: All pre-operative results and documents have been reviewed as part of the pre- operative evaluation. Informed Consent: The patient's anesthetic plan and its attendant risks and benefits were discussed with the patient/family/POA. Questions were solicited and answers provided to the satisfaction of the patient/family/POA.
[2022-12-22] MEDS: LACTATED RINGERS 1,000 ML 30 ML IV CONT (09:30)
[2022-12-22 09:44] LABS: Appearance Urine Clear (Clear); Bacteria Urine None Seen /hpf; Bilirubin Urine Negative (Negative); Blood Urine Negative (Negative); Color Urine Yellow (Yellow); Glucose Urine UA Negative (Negative); Ketones Urine Trace mg/dL (Negative); Leukocyte Esterase Ur Trace LEU/UL (Negative); Nitrate Urine Negative (Negative); Non Pathogenic Casts 0-2; Protein Urine Negative (Negative); RBC Urine 0-2 /hpf (0-2); Specific Grav Ur 1.022 (1.001-1.035); Squamous Epithelial Cell Urine None seen /hpf (Few); Urobilinogen Urine 0.2 mg/dL (<2.0); pH Urine 5.5 (5.0-9.0)
[2022-12-22 09:50] LABS: Anion Gap 8 mmol/L (8-16); Blood Urea Nitrogen 14 mg/dL (9-20); Calcium 9.2 mg/dL (8.4-10.2); Carbon Dioxide 30 mmol/L (22-30); Chloride 103 mmol/L (98-107); Estimated CRCL calculation 132 ml/min; Estimated Glomerular Filt Rate > 60; Glucose 111 mg/dL (65-110); Sodium 141 mmol/L (137-145)
[2022-12-22 09:52] LABS: INR 0.9; Prothrombin Time 12.5 Seconds (11.1-14.7)
[2022-12-22 09:53] LABS: Add Urine Microscopic? YES; Partial Thromboplastin Time 25.1 SECONDS (22.3-36.8)
[2022-12-22] MEDS: SCOPOLAMINE 1.5 MG PATCH TRANSDERM (10:00)
[2022-12-22] MEDS: ceFAZolin 2 GM/D5W 50 ML 2 GM/50 ML BAG IVPB (10:12)
--- NOTE | 2022-12-22 10:30 | W.PM.PROC2 ---
Procedure Note - Detailed Date of Procedure 12/22/22 Pre-op Diagnosis Left renal stone Post-op Diagnosis Same Procedure Performed Flexible cystoscopy, left ESWL Surgeon Abdiel Rodarte MD Anesthesia General Description of Procedure The patient was brought to the operative suite where he was placed in the supine position on the Dornier lithotripter table. Flexible cystoscopy was undertaken with a 16F flexible cystoscopy. There were no urethral strictures. The prostatic urethra estimated length was 1.5cm. There was no obstruction of the prostatic urethra with no median lobe enlargement. The bladder mucosa was normal and there was a single, orthotopic ureteral orifice bilaterally. There was no intravesical foreign body or neoplasm. The focal point of the lithotriptor was directed at an 8-9mm left lower pole calculus. A total of 2500 shocks were delivered at a power setting of 1-44. There appeared to be good fragmentation of the stone. The patient tolerated the procedure well and was taken to the recovery room in good condition. Drains No Packing No Pathology None sent Complications No immediate complications Condition Stable Disposition PACU
[2022-12-22] MEDS: ONDANSETRON INJ 4 MG/2 ML VIAL IV PUSH (11:36)
== END 2022-12-22 12:26 | disposition home or self-care (01) ==
PROVIDERS: Anesthesiology; Visit Provider Urology
PROC: (CPT 50590; principal; 2022-12-22 10:30)
DX: N20.0 Calculus of kidney (principal); E78.5 Hyperlipidemia, unspecified; J45.909 Unspecified asthma, uncomplicated; F90.9 Attention-deficit hyperactivity disorder, unspecified type; F41.9 Anxiety disorder, unspecified; E66.9 Obesity, unspecified; Z68.38 Body mass index [BMI] 38.0-38.9, adult; F12.90 Cannabis use, unspecified, uncomplicated
CPT/HCPCS: 50590; 36415; 74018; 80048; 81001; 85610; 85730; 87086; 93005; A9270; J0690; J1100; J2250; J2405; J2704; J3010; J7030; J7120

== ENCOUNTER 2023-01-03 11:05 | Outpatient (CLI) | payer BC, SELFPAY ==
--- NOTE | ~2023-01-03 | XR_ITS ---
EXAMINATION: XR abdomen/kub 1V INDICATION: Left-sided lithotripsy one week ago TECHNIQUE: Supine views of the abdomen were obtained on 2 radiographs. COMPARISON: 12/22/2022 FINDINGS: The previously described 5 mm stone of the left kidney lower pole now measures approximatel y 5 mm and is less dense than on the comparison examination, consistent with interval lithotripsy. No definite stone fragments are identified along the expected course of the left ureter or in the urina ry bladder. The bowel gas pattern is normal. The visualized lung bases are clear. IMPRESSION: 1. Findings consistent with interval lithotripsy of the previously described left kidney lower pole s tone. Reviewed, dictated and finalized at location B. IMPRESSION: 1. Findings consistent with interval lithotripsy of the previously described le ft kidney lower pole stone.
== END 2023-01-03 11:06 | disposition home or self-care (01) ==
PROVIDERS: Visit Provider Urology
DX: N20.0 Calculus of kidney (principal)
CPT/HCPCS: 74018

== ENCOUNTER 2023-03-16 12:17 | Outpatient (NON) | payer BC, SELFPAY ==
[2023-03-22 18:23] LABS: Calprotectin, Stool 28 mcg/g
== END 2023-03-16 12:18 | disposition home or self-care (01) ==
PROVIDERS: Visit Provider Internal Medicine Gastroenterology
DX: K52.9 Noninfective gastroenteritis and colitis, unspecified (principal); R11.2 Nausea with vomiting, unspecified
CPT/HCPCS: 83993

== ENCOUNTER 2023-07-12 14:02 | Outpatient (CLI) | payer BC, SELFPAY ==
--- NOTE | ~2023-07-12 | XR_ITS ---
XR abdomen/kub 1V 07/12/2023 14:14 Indication: Left renal stone Procedure: KUB Comparison: Comparison to multiple prior studies sequentially, with oldest reviewed study dated 11/28. Findings: There is a left renal stone measuring approximately 9 mm. There is a stone at the L3-4 leve l on the right, suspicious for UPJ stone. Bowel gas pattern nonobstructive. No acute osseous abnormal ity. Impression: 1: Possible right UPJ stone at the L3-4 level. 2: Left nephrolithiasis. Reviewed, dictated and finalized at location L. Impression: 1: Possible right UPJ stone at the L3-4 level. 2: Left nephrolithiasis.
== END 2023-07-12 14:03 | disposition home or self-care (01) ==
PROVIDERS: Visit Provider Urology
DX: N20.0 Calculus of kidney (principal)
CPT/HCPCS: 74018

== ENCOUNTER 2023-07-17 15:23 | Outpatient (CLI) | payer BC, SELFPAY ==
--- NOTE | ~2023-07-17 | CT_ITS ---
Non-contrast CT scan of the Abdomen and Pelvis Clinical indication: Left renal stone Technique: 2.5 mm axial scans were obtained through the abdomen and pelvis without intravenous or or al contrast. Dose reduction technique was used on this scan by utilizing automated exposure control a nd iterative reconstruction technique. The dose-length product (DLP) was 525.07 mGy-cm. COMPARISON: 11/28/2022 Findings: Images through the lung bases reveal stable small left pericardial cyst. There is a 6 mm ovoid stone in the proximal right ureter (axial image 61), without hydronephrosis. Th ere is a 1 cm irregular nonobstructing left lower pole renal stone. No left ureteral stone. The liver, spleen, pancreas, gallbladder, and adrenals appear normal. There is no aortic aneurysm. There is no evidence of bowel obstruction. Images through the pelvis were performed. There is no evidence of ascites or lymphadenopathy. Urinary bladder unremarkable. No pelvic mass seen. Impression: 6 mm proximal right ureteral stone, without hydronephrosis. 1 nonobstructing left lower pole renal stone. Reviewed, dictated and finalized at [facility]. Impression: 6 mm proximal right ureteral stone, without hydronephrosis. 1 nonobstructing left lower pole renal stone.
== END 2023-07-17 15:24 ==
PROVIDERS: PCP Urology; Visit Provider Urology
DX: N20.2 Calculus of kidney with calculus of ureter (principal)
CPT/HCPCS: 74176

== ENCOUNTER 2023-08-14 09:11 | Outpatient (CLI) | payer BC, SELFPAY ==
--- NOTE | ~2023-08-14 | XR_ITS ---
XR abdomen/kub 1V 08/14/2023 09:21 Indication: Right ureteral stone Procedure: KUB Comparison: CT dated 07/17/2023 Findings: No evidence for right ureteral stone on the current study. There is a left renal stone. [place] el pattern nonobstructive. No acute osseous abnormality. Impression: 1: Left nephrolithiasis. Reviewed, dictated and finalized at location B. Impression: 1: Left nephrolithiasis.
== END 2023-08-14 09:12 | disposition home or self-care (01) ==
LOC: ANHIMG 09:12
PROVIDERS: PCP Urology; Visit Provider Urology
DX: N20.0 Calculus of kidney (principal)
CPT/HCPCS: 74018

== ENCOUNTER 2024-05-20 06:56 | Emergency (ER) | payer BC, SELFPAY ==
--- NOTE | ~2024-05-20 | XR_ITS ---
Clinical Indication: Right rib pain PA and lateral views of the chest: Comparison: 04/14/2015 Findings: The lungs are clear, without evidence of focal consolidation or pleural effusion. Cardiome diastinal silhouette is within normal limits. Bones and soft tissues are unremarkable. Impression: Normal chest. Reviewed, dictated and finalized at [facility]. [employer] Impression: Normal chest.
--- OUTSIDE RECORDS SUMMARY | 2024-05-20 06:57 | XMS_ITS | Encounter Summary ---
Author Organization [facility] Address [address] [place] [address] Care Team Providers Care Bank Secrecy Act Officer Name Role Phone Govind Christopher MD Primary Care Provider [phone] Encounter Details Date Type Department Care Team (Late st Contact Info) Description 01/20/2022 Abstract [facility] Internal Medicine [address] [address] Govind Christopher MD [address] [place] [id number] Social History Tobacco Use Types Packs/Day Years Used Date Smoking Tobacco: Never Smokeless Tobacco: Never Alcohol Use Standard Drinks/Week Comments No 0 (1 standard drink = 0.6 oz pur e alcohol) Sex and Gender Information Value Date Recorded Sex Assigned at Not on file 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 [address] [place], [place] [address] [address] Govind Christopher MD [address] [place] [address] documented as of this encounter Visit Diagnoses Not on filedocumented in this encounter Additional Health Concerns Assessment Noted Time PHQ-9 Depression Total Score: 1 11/09/19 22 10:39 AM CDT documented as of this encounter Care Teams Bank Secrecy Act Officer Relationship Specialty Start Date End Date Govind Christopher MD [address] [place] [address] PCP - General Internal Medicine 07/15/18 documented as of this encounter
--- OUTSIDE RECORDS SUMMARY | 2024-05-20 06:58 | XMS_ITS | Encounter Summary ---
Author Organization [facility] Address 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 Gender Identity Not on file Sexual Orientation Not on file documented as of this encounter Plan of Treatment Upcoming Encounters Date Type Department Care Team (Late st Contact Info) Description 09/09/2024 2:00 PM CDT [facility] [address] [facility] [address] [address] Govind Christopher MD [address] [facility] [address] [address] documented as of this encounter Visit Diagnoses Not on filedocumented in this encounter Care Teams Grinder Set Up Operator Jig Relationship Specialty Start Date End Date Govind Christopher MD [address] [place] [address] PCP - General Internal Medicine 07/15/18 documented as of this encounter
--- OUTSIDE RECORDS SUMMARY | 2024-05-20 06:58 | XMS_ITS | Encounter Summary ---
Author Organization [facility] Address [address] [place] [address] Care Team Providers Care Cut Plug Packer Name Role Phone Govind Christopher MD Primary Care Provider [phone] Encounter Details Date Type Department Care Team (Late st Contact Info) Description 2000 Outpatient Historical [facility] - [facility] [address] [facility] [address] [address] Bright Joy MD [address] [place] [address] [address] [address] Social History Tobacco Use Types Packs/Day Years Used Date Smoking Tobacco: Never Assessed Sex and Gender Information Value Date Recorded Sex Assigned at Not on file 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 [address] [facility] [address] [address] Govind Christopher MD [address] [place] [address] [address] [place] [address] documented as of this encounter Visit Diagnoses Not on filedocumented in this encounter Care Teams Cut Plug Packer Relationship Specialty Start Date End Date Govind Christopher MD [address] [place] [address] PCP - General Internal Medicine 07/15/18 documented as of this encounter
--- OUTSIDE RECORDS SUMMARY | 2024-05-20 06:58 | XMS_ITS | Clinical Summary ---
Author Organization [facility] Address [address] [facility] [place] [address] Care Team Providers Care Law Secretary Name Role Phone Unavailable Primary Care Provider Unavailabl e Source Comments [facility],non-owned Affiliates and Associated Physician Practices is amultiple site organization consisting of ambulatory clinics and hospital sitesin [place], [place], [place] and [place]. This disclosure is being madepursuant to the Care Everywhere program and may not contain all information available regarding this patient. Last updated 18.[facility] [employer] Allergies No known active allergies Medications * Be aware that medications may not be up to date on this document. Alwaysverify current medications with the patient. Medication Sig Dispensed Refills Start Date End Date Status dexmethylphenidate CR 24hr (FOCALIN XR) 20 MG capsule Take 20 mg by mouth every morning. Active oxybutynin (DITROPAN) 5 MG tablet Take 5 mg by mouth once daily. Active Nutritional Supplements (MELATONIN PO) Take by mouth. Active Polyethylene Glycol 3350 (MIRALAX PO) Take by mouth. Act lisandra Active Problems Problem Noted Date Diagnosed Date Short stature 05/01/2011 Social History Tobacco Use Types Packs/Day Years Used Date Smoking Tobacco: Never Assessed Sex and Gender Information Value Date Recorded Sex Assigned at Not on file Gender Identity Not on file Sexual Orientation Not on file Last Filed Vital Signs Vital Sign Reading Time Taken Comments Blood Pressure 90/56 05/01/2011 8:32 AM MILITARY TECHNOLOGY MANAGER Pulse 78 05/01/2011 8:32 AM MILITARY TECHNOLOGY MANAGER Temperature - - Respiratory Rate 18 05/01/2011 8:32 AM MILITARY TECHNOLOGY MANAGER Oxygen Saturation - - Inhaled Oxygen Concentration - - Weight 41.4 kg (91 lb 4.8 oz) 05/01/2011 8:32 AM MILITARY TECHNOLOGY MANAGER Height 131.8 cm (4' 3.89 ) 05/01/2011 8:32 AM CS T Body Mass Index 23.84 05/01/2011 8:32 AM MILITARY TECHNOLOGY MANAGER Plan of Treatment Health Maintenance Due Date Last Done Comments HIV SCREENING 02/26/2015 HPV VACCINE (1 - Male 3-dose series) 02/26/2015 HEPATITIS C SCREENING 02/22/2018 DTAP/TDAP/TD VACCINES (1 - Tdap) 02/26/2019 HEPATITIS B VACCINE (1 of 3 - 19+ 3-dose series) 02/26/2019 COVID-19 VACCINE (1 - 2023-2 5 season) 2023 INFLUENZA VACCINE (#1) 2023 DEPRESSION SCREENING 04/16/2024 ZOSTER VACCINE (1 of 2) 02/26/2050 HIB VACCINE Aged Out No longer eligi ble based on patient's age to complete this topic MENINGOCOCCAL (Group B) VACCINE Aged Out No longer eligible based on patient's age to complete this topic MENINGOCOCCAL VACCINE Aged Out No cecy jack eligible based on patient's age to complete this topic PNEUMOCOCCAL VACCINE Aged Out No long er eligible based on patient's age to complete this topic
--- OUTSIDE RECORDS SUMMARY | 2024-05-20 06:58 | XMS_ITS | Patient Health Summary ---
Author Organization [facility] Address [address] [place] [address] Care Team Providers Care Registration Officer Name Role Phone Unavailable Primary Care Provider Unavailabl e Note from [facility],non-owned Affiliates and Associated Physician Practices is amultiple site organization consisting of ambulatory clinics and hospital sitesin [place], [place], [place] and [place]. This disclosure is being madepursuant to the Care Everywhere program and may not contain all information available regarding this patient. Last updated 18.[facility] Allergies No known active allergies Medications * Be aware that medications may not be up to date on this document. Alwaysverify current medications with the patient. * dexmethylphenidate CR 24hr (FOCALIN XR) 20 MG capsule Take 20 mg by mouth every morning. * oxybutynin (DITROPAN) 5 MG tablet Take 5 mg by mouth once daily. * Nutritional Supplements (MELATONIN PO) Take by mouth. * Polyethylene Glycol 3350 (MIRALAX PO) Take by mouth. Active Problems Problem Noted Date Diagnosed Date Short stature 05/01/2011 Social History Tobacco Use Types Packs/Day Years Used Date Smoking Tobacco: Never Assessed Sex and Gender Information Value Date Recorded Sex Assigned at Not on file Gender Identity Not on file Sexual Orientation Not on file Last Filed Vital Signs Vital Sign Reading Time Taken Comments Blood Pressure 90/56 05/01/2011 8:32 AM SALES AGENT PEST CONTROL SERVICE Pulse 78 05/01/2011 8:32 AM SALES AGENT PEST CONTROL SERVICE Temperature - - Respiratory Rate 18 05/01/2011 8:32 AM SALES AGENT PEST CONTROL SERVICE Oxygen Saturation - - Inhaled Oxygen Concentration - - Weight 41.4 kg (91 lb 4.8 oz) 05/01/2011 8:32 AM SALES AGENT PEST CONTROL SERVICE Height 131.8 cm (4' 3.89 ) 05/01/2011 8:32 AM CS T Body Mass Index 23.84 05/01/2011 8:32 AM SALES AGENT PEST CONTROL SERVICE Procedures * LAB RESULTS ORDER(Performed 06/06/2011) * XR BONE AGE STUDY(Performed 05/01/2011) Performed for Short stature Results * LAB RESULTS ORDER (06/06/2011 4:04 PM SALES AGENT PEST CONTROL SERVICE) Narrative Transcriptions Document, Scanned - 06/06/2011 4:04 PM CST Scanned Document LAB - THERAPEUTIC DR MAYERS MONITORING ORDERABLES * XR BONE AGE HAND AND WRIST (05/01/2011 9:39 AM SALES AGENT PEST CONTROL SERVICE) Anatomical Region Laterality Modality Upper Extremity, Wrist / Hand Ra diographic Imaging 05/01/2011 10:4 2 AM SALES AGENT PEST CONTROL SERVICE Narrative 05/01/2011 11:32 AM SALES AGENT PEST CONTROL SERVICE EXAM: Bone Age Hand, male FINDINGS: Chronologic age: ?11 years 2 months. Standard deviation: ?10.5 months. Bone age: ? 10 years. Method: ? Greulich and Basim. Last examination: ? None. Skeletal maturation: ?Normal. Colton Mayers MD Procedure Note Juan Chino A - 05/01/2011 EXAM: Bone Age Hand, male FINDINGS: Chronologic age: 11 years 2 months. Standard deviation: 10.5 months. Bone age: 10 years. Method: Greulich and Basim. Last examination: None. Skeletal maturation: Normal. Colton Mayers MD Ti Mcgill MD DIAGNOSTIC IMAGING [facility]
--- OUTSIDE RECORDS SUMMARY | 2024-05-20 06:58 | XMS_ITS | Referral Summary ---
Author Organization [facility] Address [address] [address] Care Team Providers Care Sales Agent Pest Control Service Name Role Phone Unavailable Primary Care Provider Unavailabl e Source Comments [facility],non-owned Affiliates and Associated Physician Practices is amultiple site organization consisting of ambulatory clinics and hospital sitesin [place], [place], [place] and [place]. This disclosure is being madepursuant to the Care Everywhere program and may not contain all information available regarding this patient. Last updated 18.[facility] [employer] Allergies No known active allergies Medications * [...] Comments Blood Pressure 90/56 05/01/2011 8:32 AM LINING SEWER Pulse 78 05/01/2011 8:32 AM LINING SEWER Temperature - - Respiratory Rate 18 05/01/2011 8:32 AM LINING SEWER Oxygen Saturation - - Inhaled Oxygen Concentration - - Weight 41.4 kg (91 lb 4.8 oz) 05/01/2011 8:32 AM LINING SEWER Height 131.8 cm (4' 3.89 ) 05/01/2011 8:32 AM CS T Body Mass Index 23.84 05/01/2011 8:32 AM LINING SEWER Plan of Treatment Not on file
--- OUTSIDE RECORDS SUMMARY | 2024-05-20 06:58 | XMS_ITS | Referral Summary ---
Author Organization [facility] Address [address] [place] [address] Care Team Providers Care Thread Trimmer Name Role Phone Govind Christopher MD Primary Care Provider [phone] Unknown, Notinfile Unavailable Unavailable Aidan Maynard MD Unavailable [phone] Encounters Date Type Department Care Team Description 04/02/2024 Orders Only [facility] [address] [place], [place] [id number] Jeremy Curry MD from Last 3 Months Allergies Active Allergy Reactions Criticality Noted Date Comments Amoxicillin-Pot Clavulanate Rash Medium Medications dexmethylphenidate XR (FOCALIN XR) 30 mg 24 hr capsuleIndications :Attention-Deficit Hyperactivity Disorder Take 30 mg by mouth daily Not taking recently since he is out of school Active acetaminophen ER (TYLENOL) 650 mg 8 hr tablet Take 650 mg by mouth daily as needed for pain Active ondansetron ODT (ZOFRAN-ODT) 4 mg disintegrating tablet Take 4 mg by mouth every 6 (six) hours as needed 06/24/19 20 Active traMADoL (ULTRAM) 50 mg tablet Take 50 mg by mouth every 6 (six) hours as needed 07/07/19 20 Active HYDROcodone-acetam inophen (NORCO) 5-325 mg per tabletIndications: Pain Take 1 tablet by mouth every 4 (four) hours as needed for pain 30 tablet 07/17/19 20 Active Additional Information Patient not taking.Reported on 11/29/2021 ALPRAZolam (XANAX) 0.25 mg tablet Take 1 tablet (0.25 mg total) by mouth daily as needed 05/27/19 22 Active atorvastatin (LIPITOR) 10 mg tablet 11/18/19 22 Active hydroCHLOROthiazid e (HYDRODIURIL) 12.5 mg tablet Take 12.5 mg by mouth daily 09/28/19 22 Active sertraline (ZOLOFT) 50 mg tablet Take 1 tablet (50 mg total) by mouth daily 04/16/19 20 Active tamsulosin (FLOMAX) 0.4 mg extended release capsule Take by mouth daily 11/23/19 22 Active dexmethylphenidate (FOCALIN) 10 mg tablet 04/16/19 22 Active Linzess 72 mcg capsule 02/15/20 23 Active ondansetron (ZOFRAN) 8 mg tablet 11/15/19 23 Active Active Problems Patient Care Coordination No te Formatting of this note migh t be different from the original. Referring provider: Dr. Govind Christopher Mr. Jose Goyal is a 21-year-old with mediastinal lymphadenopathy. Patient has a history of kidney stones. On 11/01/2021 the patient underwent a CT of the abdomen and pelvis without contrast which noted a 10 mm short axis diameter left anterior pre pericardial lymph node there was a 6 x 11 mm nonobstructive left lower pole nephrolith. He subsequently underwent a lithotripsy. On 11/22/2021 the patient underwent a repeat CT of the abdomen and pelvis without contrast which showed a left anterior pre pericardial lymph node now measuring 12 mm in short axis diameter. There was a decrease in size of the left inferior pole nephro left. There was a left percutaneous nephrostomy tract. On 11/29/2019 the patient underwent a PET scan. The final PET scan results were pending at the time of this dictation, however, upon review with Dr. Blair, there is no abnormal uptake seen within this pericardial lymph node. Patient is a never smoker. Patient presents today for further surgical evaluation. A complete review of systems was performed and was positive for occasional fatigue and cough. All other systems were negative. Plan: Contrast CT scan of the chest in 6 months with return office visit. 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 Gender Identity Male 11/25/2021 7:39 AM CDT Sexual Orientation Straight 11/25/2021 7: 39 AM CDT Last Filed Vital Signs Vital Sign Reading Time Taken Comments Blood Pressure 121/75 11/29/2021 10:20 AM CDT Pulse 75 11/29/2021 10:20 AM CDT Temperature 36.3 ??C (97.3 ??F) 11/29/2021 10:20 AM C DT Respiratory Rate 16 11/29/2021 10:20 AM CDT Oxygen Saturation 98% 11/29/2021 10:20 AM CDT Inhaled Oxygen Concentration - - Weight 97.5 kg (215 lb) 11/29/2021 10:20 AM CDT Height 162.2 cm (5' 3.86 ) 11/29/2021 10:20 AM C DT Body Mass Index 37.07 11/29/2021 10:20 AM CDT Plan of Treatment Not on file Medical Devices Implanted Type Area Manager Filter Device Identifier Shelf Expiration Date Model / Serial / Lot [employer] [id number] Amplatz 8.5fr 26cm 6 Sideport Introducer Catheter String - [id number] Implanted:Qty: 1 on 07/17/2019 [facility] [employer] 03/05/2022 [id number] / / [id number] Description:Left JJ stent pl aced by dr. Cohen Insurance ANTHEM ACCESS CHOICE Member Subscriber Plan / Payer (Ef fective 2019-Present) Name:Jose Goyal Relation to Subscriber:Other Relationship Name:AMADA SCOTT Subscriber ID:Not on file Date of :1971 Payer ID:[id number] (NAIC) Type:[employer] Address: [place] [address] ANTHEM ACCESS CHOICE Member Subscriber Plan / Payer (Ef fective 2021-Present) Name:Jose Goyal Relation to Subscriber:Child Name:AMADAASHUTOSHGOVIND Date of :1971 (Home) (Work) Address: [address] [place] [address] Payer ID:[id number] (NAIC) Type:[employer] Address: [place] [address] ANTHEM ACCESS CHOICE Member Subscriber Plan / Payer ( fective 2021-Present) Name:Jose Goyal Relation to Subscriber:Child Name:ASHUTOSH GOYALHEN Date of :1971 (Home) Address: [address] Payer ID:[id number] (NAIC) Type:[employer] Address: [address] [place] [address] ANTHEM ACCESS CHOICE Member Subscriber Plan / Payer (Ef fective 2019-Present) Name:Jose Goyal Relation to Subscriber:Other Relationship Name:AMADA SCOTT Date of :1971 (Home) Address: [address] [place] [id number] Payer ID:[id number] (NAIC) Type:[employer] Address: [id number] [place] [address] Advance Directives For more information, please contact: [phone] * Full Code (Latest Code Status on File) Date Activated Date Inactivated Comments 07/15/2019 4:22 PM 07/17/2019 10:05 PM Care Teams Thread Trimmer Relationship Specialty Start Date End Date Govind Christopher MD PCP - General Critical Care Med 11/23/21 Unknown, Notinfile 11/23/21 Aidan Maynard MD Consulting Physician Urology 07/17/19
--- OUTSIDE RECORDS SUMMARY | 2024-05-20 06:58 | XMS_ITS | Encounter Summary ---
Author Organization [facility] Address [address] [place] [address] Care Team Providers Care Pool Coordinator Name Role Phone Govind Christopher MD Primary Care Provider [phone] Encounter Details Date Type Department Care Team (Late st Contact Info) Description 2000 Outpatient Historical [facility] - [facility] 2002 [address] [address] [address] Bright Joy MD [address] [place] [address] [address] [address] Social History Tobacco Use Types Packs/Day Years Used Date Smoking Tobacco: Never Assessed Sex and Gender Information Value Date Recorded Sex Assigned at Not on file Legal Sex Male 4:34 AM LEVEL VIAL 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 [address] [address] Govind Christopher MD [address] [place] [address] [address] [place] [address] documented as of this encounter Visit Diagnoses Not on filedocumented in this encounter Care Teams Pool Coordinator Relationship Specialty Start Date End Date Govind Christopher MD [address] [place] [address] PCP - General Internal Medicine 07/15/18 documented as of this encounter
--- OUTSIDE RECORDS SUMMARY | 2024-05-20 06:58 | XMS_ITS | Encounter Summary ---
Author Organization [facility] Address [address] [place] [address] Care Team Providers Care Plug Stitcher Name Role Phone Unknown, Notinfile Primary Care Provider Unavail able Govind Christopher MD Primary Care Provider [phone] Unknown, Notinfile Unavailable Unavailable Aidan Maynard MD Unavailable [phone] Encounter Details Date Type Department Care Team (Late st Contact Info) Description 07/23/2019 Telephone [facility] - Interventional Radiology [address] [place] [address] Virginia Tovar RN Social History Tobacco Use Types Packs/Day Years Used Date Smoking Tobacco: Never Smokeless Tobacco: Never Alcohol Use Standard Drinks/Week Comments Yes 0 (1 standard drink = 0.6 oz pur e alcohol) rare Sex and Gender Information Value Date Recorded Sex Assigned at Not on file Legal Sex Male 7:59 AM LOOM DOFFER Gender Identity Male 11/25/2021 7:39 AM CDT Sexual Orientation Straight 11/25/2021 7: 39 AM CDT COVID-19 Exposure Response Date Recorded In the last month, have you been in contact with someone who was confirmed or suspected to have Coronavirus / COVID-19? No / Unsure 07/08/2019 6:23 AM CDT documented as of this encounter Plan of Treatment Not on file documented as of this encounter Visit Diagnoses Not on filedocumented in this encounter Care Teams Plug Stitcher Relationship Specialty Start Date End Date Unknown, Notinfile PCP - General 07/08/19 11/22/21 Govind Christopher MD PCP - General Critical Care Med 11/23/21 Unknown, Notinfile 11/23/21 Aidan Maynard MD Consulting Physician Urology 07/17/19 documented as of this encounter
--- OUTSIDE RECORDS SUMMARY | 2024-05-20 06:58 | XMS_ITS | Clinical Summary ---
Author Organization [facility] Address [address] [place] [address] Phone Care Team Providers Care Network Program Manager Name Role Phone Govind Christopher MD Primary Care Provider [phone] Allergies Active Allergy Reactions Criticality Noted Date Comments Amoxicillin-Pot Clavulanate Hives,Rash High 11/04/19 15 Medications Medication Sig Dispensed Refills Start Date End Date Status sertraline (ZOLOFT) 50 MG tablet Take 50 mg by mouth 1 (one) time each day 08/19/2021 Active ALPRAZolam (XANAX) 0.25 MG tablet TAKE 1 TABLET BY MOUTH 1 TIME DAILY NEEDED FOR ANXIETY. 08/21/2021 Active atorvastatin (LIPITOR) 10 MG tablet Take 10 mg by mouth in the morning. 11/17/2021 Active dexmethylphenidate (FOCALIN) 10 MG tablet Take 10 mg by mouth in the morning and 10 mg in the evening. 03/27/2022 Active ondansetron ODT (ZOFRAN-ODT) 4 MG dispersible tablet Take 8 mg by mouth 1 (one) time each day if needed 11/08/2022 Active hydroCHLOROthiazide (HYDRODIURIL) 12.5 MG tablet TAKE 1 TABLET BY MOUTH EVERY DAY 90 tablet 3 12/11/2022 Active Additional Information Patient taking differently:12.5 mg OralDaily, Reported on 05/30/2023 linaCLOtide (Linzess) 72 MCG capsule Take 1 capsule by mouth 1 (one) time each day Active potassium citrate (UROCIT-K) 15 mEq SR tablet TAKE 1 TABLET BY MOUTH IN THE MORNING AND 1 TABLET IN THE EVENING. 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 Assessment & Plan (11/28/2023 9:08 PM CDT): Continued efforts to lose weight Encounters Date Type Department Care Team Description 04/02/2024 Orders Only [facility] [address] [place] [address] Gila Jc MA Nephrolithiasis (Primary Dx) 04/02/2024 Orders Only [facility] [address] [place] [address] Jeremy Curry MD Nephrolithiasis (Primary Dx) from Last 3 Months Immunizations Name Administration Dates Next Due DTaP 09/25/2005, 2,2000,2000 ,2000 HPV, Quadrivalent 06/21/2015,12/22/2014,10/13/19 15 Hepatitis A 07/17/2008,09/25/2005 Hepatitis B 01/02/2001,2000,2000 Hib (PRP-T) 05/29/2001,01/02/2001,2000 ,2000 IPV 09/25/2005,09/11/2001,2000 ,2000 Influenza TIV (IM) 03/07/2022 MMR 09/25/2005,05/29/2001 Meningococcal MCV4P 11/27/2017,09/28/2011 Pneumococcal Conjugate 13-Valent 03/13/2001,08/14,2000,2000 Tdap 09/28/2011 Varicella 07/17/2008,03/10/2001 Social History Tobacco Use Types Packs/Day Years Used Date Smoking Tobacco: Never Assessed Sex and Gender Information Value Date Recorded Sex Assigned at Not on file Gender Identity Not on file Sexual Orientation Not on file Last Filed Vital Signs Vital Sign Reading Time Taken Comments Blood Pressure 122/80 11/28/2023 3:26 PM CDT Pulse 73 11/28/2023 3:26 PM CDT Temperature - - Respiratory Rate - - Oxygen Saturation - - Inhaled Oxygen Concentration - - Weight 97.5 kg (215 lb) 11/28/2023 3:26 PM CDT Height 162.6 cm (5' 4 ) 11/28/2023 3:26 PM CDT Body Mass Index 36.9 11/28/2023 3:26 PM CDT Plan of Treatment Upcoming Encounters Date Type Department Care Team (Late st Contact Info) Description 05/28/2024 3:20 PM CLOTHING WORKER Office Visit [facility] [address] [place] [address] Jeremy Curry MD [address] [place], [place] [id number] Health Maintenance Due Date Last Done Comments Pneumococcal PPSV23 Highest Risk Adult (2 of 3 - PPSV23) 02/26/2019 03/13/2001, 2000, 2000, Additional history exists Influenza Vaccine (#1) 2023 03/07/2022 Procedures Procedure Name Priority Date/Time Associated Diagnosis Comments RENAL FUNCTION PANEL (RFP) Routine 05/08/2024 11:15 AM CLOTHING WORKER Nephrolithiasis LITH[facility]INK 24-HOUR URINE, [place] Routine 04/28/2024 6:45 AM CLOTHING WORKER Nephrolithiasis from Last 3 Months Results * Renal Function Panel (RFP) (05/08/2024 11:15 AM CLOTHING WORKER) Glucose, Serum/Plasma 99 65 - 99 mg/dL [facility] ([facility]) Comment: ? Fasting reference interval Urea nitrogen, Serum/Plasma (BUN) 14 7 - 25 mg/dL [facility] ([facility]) Creatinine, Serum/Plasma 0.83 0.60 - 1.24 mg/dL [facility] ([facility]) Estimated Glomerular Filtration Rate (eGFR) 125 > OR = 60 mL/min/1.7 3m2 [facility] ([facility]) Urea nitrogen/Creati nine, Serum/Plasma SEE NOTE: (calc) [facility] ([facility]) Comment: ?? Not Reported: BUN and Creatinine are within ?? reference range. ? Sodium, Serum/Plasma 140 135 - 146 mmol/L [facility] ([facility]) Potassium, Serum/Plasma 4.3 3.5 - 5.3 mmol/L [facility] ([facility]) Chloride, Serum/Plasma 103 98 - 110 mmol/L [facility] ([facility]) Carbon dioxide CO2), total, Serum/Plasma 27 20 - 32 mmol/L [facility] ([facility]) Calcium, Serum/Plasma 9.8 8.6 - 10.3 mg/dL [facility] ([facility]) Phosphate, Serum/Plasma 3.1 2.5 - 4.5 mg/dL [facility] ([facility]) Albumin, Serum/Plasma 4.9 3.6 - 5.1 g/dL [facility] ([facility]) Blood (Blood, Venous) 05/08/2024 11:15 AM CLOTHING WORKER 05/08/2024 11:16 AM CLOTHING WORKER Narrative Resulting Agency Comment Performing Organization Information: ?Site ID: [id number] ?Name: [facility] ?Address: [facility] [place] [place] [address] ?Director: Mila Diaz Jeremy Curry MD LAB BLOOD ORDERABLES [facility] (ST) * (ABNORMAL) [facility] 24-Hour Urine Panel (04/28/2024 6:45 AM CLOTHING WORKER) CYSTINE, URINE, QUALITATIVE CANCELED [facility] 1 Comment: Test not performed. Previous test results on file. Result canceled by the ancillary. Volume, 24-Hour Urine 2,900 500 - 4,000 mL/24 hr [facility] Calcium oxalate index, 24 hour Urine 4.91(L) 6.00 - 10.00 [facility] 1 Calcium, 24 hour Urine 301(H) <250 mg/24 hr [facility] 1 Oxalate, 24 hour Urine 36 20 - 40 mg/24 hr [facility] 1 Citrate, 24 hour Urine 298(L) >450 mg/24 hr [facility] 1 CALCIUM PHOSPHATE SATURATION 1.41 0.50 - 2.00 [facility] 1 pH of 24 hour Urine 6.910(H) 5.800 - 6.200 [facility] 1 Urate, 24 hour Urine 0.11 <1.00 [facility] 1 Uric Acid (Urate), 24 Hour Urine 1,033(H) <800 mg/24 hr [facility] 1 Sodium, 24 hour Urine 314(H) 50 - 150 mmol/24 hr [facility] 1 Potassium, 24 hour Urine 34 20 - 100 mmol/24 hr [facility] 1 Magnesium, 24 hour Urine 59 30 - 120 mg/24 hr [facility] 1 Phosphate, 24 hour Urine 657 600 - 1,200 mg/24 hr [facility] 1 AMMONIUM, URINE 32 15 - 60 mmol/24 hr [facility] 1 Chloride, 24 hour Urine 280(H) 70 - 250 mmol/24 hr [facility] 1 Sulfate, 24 hour Urine 43 20 - 80 meq/24 hr [facility] 1 Urea nitrogen, 24 hour Urine (UUN) 12.04 6.00 - 14.00 g/24 hr [facility] 1 PROTEIN CATABOLIC RATE 0.9 0.8 - 1.4 g/kg/24 hr [facility] 1 Creatinine, 24 hour Urine 2,045 Not Applic. mg/24 hr [facility] 1 Comment: Note the excessive variation in creatinine excretion, suggesting a discrepancy in the collection process. ??The urine creatinine result was verified by repeat analysis. CREATININE / KG BODY WEIGHT 20.7 11.9 - 24.4 mg/24 hr/kg [facility] 1 Calcium/Kg Body Weight 3.0 <4.0 mg/24 hr/kg [facility] 1 RATIO CALCIUM TO CREATININE UA 147 34 - 196 mg/g creat [facility] 1 COMMENT Note [facility] 1 PDF . [facility] 1 04/28/2024 6:45 AM CLOTHING WORKER 05/01/2024 11:00 PM CLOTHING WORKER Narrative [facility] - 05/03/2024 2:07 AM CLOTHING WORKER Performed at: ??01 - [facility] [address] ??[id number] Die Casting Machine Operator: Eliza Leon PhD, Phone: ??[phone] Jeremy Curry MD LAB URINE ORDERABLES [facility] 1 from Last 3 Months Care Teams Network Program Manager Relationship Specialty Start Date End Date Govind Christopher MD [address] [place] [id number] PCP - General Internal Medicine 08/05/19
--- OUTSIDE RECORDS SUMMARY | 2024-05-20 06:58 | XMS_ITS | Clinical Summary ---
Author Organization [facility] Address [address] [place] [address] Phone Care Team Providers Care Watch Technician Name Role Phone Govind Christopher MD Primary Care Provider [phone] Allergies Active Allergy Reactions Criticality Noted Date Comments Amoxicillin-Pot Clavulanate Hives,Rash High 11/04/19 15 Metoclopramide Other (See Comments) 09/04/2023 depression Penicillins Unknown 11/23/2022 Medications potassium citrate (UROCIT-K) 10 mEq (1,080 mg) Extended Release tablet Take 1 Tablet (10 mEq) by mouth 2 times daily. 180 Tablet 3 3 Active cholecalciferol, Vitamin D3, 50 mcg (2,000 unit) Tablet Take 1 Tablet (2,000 Units) by mouth daily. 3 Active ondansetron (ZOFRAN ODT) 4 mg Tablet, Rapid Dissolve Take 1 Tablet (4 mg) by mouth 2 times daily as needed for Nausea/Emesis . Dissolve tablet on top of tongue, then swallow with saliva. 30 Tablet 1 3 Active Linzess 72 mcg Capsule capsule TAKE 1 CAPSULE BY MOUTH EVERY DAY ON EMPTY STOMACH AT LEAST 30 MINUTES BEFORE FIRST MEAL OF THE DAY Active atorvastatin (LIPITOR) 10 mg tablet Take 1 Tablet (10 mg) by mouth daily. 90 Tablet 3 4 Active ALPRAZolam (XANAX) 0.25 mg tabletIndication s:Acute reaction to situational stress Take 1 Tablet (0.25 mg) by mouth 1 time daily as needed for Anxiety. 30 Tablet 5 4 Active dexmethylphenida te (Focalin) 10 mg tabletIndication s:Attention deficit Take 1 Tablet (10 mg) by mouth 2 times daily. Max Daily Amount: 20 mg 60 Tablet 4 Active sertraline (ZOLOFT) 100 mg tablet Take 1 Tablet (100 mg) by mouth daily. 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 Observation recommended. Generalized anxiety disorder 09/02/2019 High cholesterol 11/25/2014 Encounters Date Type Department Care Team Description 05/13/2024 External Device Data ST[facility] ABSTRACTION Provider, Abstract 05/07/2024 External Device Data [facility] ABSTRACTION Provider, Abstract 05/07/2024 External Device Data [facility] ABSTRACTION Provider, Abstract 04/30/2024 External Device Data [facility] ABSTRACTION Provider, Abstract 03/18/2024 External Device Data [facility] ABSTRACTION Provider, Abstract 03/17/2024 Telephone [facility] Internal Medicine [facility] [address] [address] Govind Christopher MD Medication Problem 02/19/2024 External Device Data [facility] ABSTRACTION Provider, Abstract from Last 3 Months Immunizations Immunization Administration Dates Next Due (ACTHIB/HIBERIX)(2 MOS-5 YRS /6 WKS-4 YRS) HAEMOPHILUS INFLUENZAE TYPE B VACCINE (HIB), PRP-T CONJUGATE, 4 DOSE, 0.5 ML IM 05/29/2001,01/02/2001,2000,04/30 (ADACEL/BOOSTRIX)(10 YR UP) TDAP VACCINE, 0.5ML, IM 09/28/2011 (BEXSERO)(10-25 YR) MENINGOC OCCAL RECOMBIANT PROTEIN AND OUTER MEMBRANE VESICLE VACCINE, SEROGROUP B MENB-4C, 2 DOSE IM 11/27/2017 (GARDASIL)(9-45 YRS) HUMAN PAPILLOMAVIRUS VACCINE, TYPES 6, 11, 16, 18, QUADRIVALENT (4VHPV), 3 DOSE, IM 06/21/2015,12/22/2014,10/12/2014 (INFANRIX)(6 WKS-6 YRS) DIPT HERIA, TETANUS TOXOIDS, AND ACCELLULAR PERTUSSIS VACCINE (DTAP), 0.5 ML IM 09/25/2005,09/26/2001,2000,06/27,2000 (IPOL)(6 WKS AND UP) POLIOVI NAZANIN VACCINE, INACTIVATED (IPV), 3 DOSE, SUBCUT OR IM 09/25/2005,09/11/2001,2000,04/30 (EUNICE) COVID-19 VACCINE - EMERGENCY USE AUTHORIZATION, AD26,COV2S(PF) 0.5 ML IM SUSP 07/24/2020 (M-M-R II/PRIORIX)(12 MO UP) MEASLES, MUMPS AND RUBELLA VIRUS VACCINE, 0.5 ML IM/SUBCUT 09/25/2005,05/29/2001 (MENACTRA)(9 MO-55 YR) MENIN GOCOCCAL POLYSACCHARIDE A, C, Y AND W-135 DIPTHERIA TOXOID CONJUGATE VACCINE, (PF), 0.5ML, IM 11/27/2017,09/28/2011 (Pfizer Bivalent)(12 Yr Up) COVID-19 Vaccine - Emergency Use Authorization, MRNA, Lnp-S(Pf) 30 Mcg/0.3 Ml Susp 03/07/2022 (VARIVAX)(12 MOS UP)VARICELL A VIRUS VACCINE (PF) 0.5 ML, SUB CUT 07/17/2008,03/10/2001 Hepatitis A Vaccine 07/17/2008,09/25/2005 Hepatitis B Vaccine 01/02/2001,2000,1999 Influenza Seasonal Unspecifi ed Formulation IM 03/07/2022 PREVNAR (PCV13) pneumococcal 13-valent conjugate Vaccine 03/13/2001,2000,2000,04/30 Family History Medical History Relation Name Comments Healthy Brother Healthy Father Ovarian Cancer Maternal Grandmother Virginia High Cholesterol Mother Martha Congenital Heart Defect Neg Hx Inheritable Arrhythmias Neg Hx Sudden Neg Hx Relation Name Status Comments Brother Father Maternal Grandmother Virginia Mother Martha Social History Tobacco Use Types Packs/Day Years Used Date Smoking Tobacco: Never Smokeless Tobacco: Never Tobacco Cessation:Counseling Given: Not Answered Alcohol Use Standard Drinks/Week Comments Not Currently 1 (1 standard drink = 0.6 oz pure alcohol) At most i was a light drinker, i don't drink due to liver Feeling Safe Answer Date Recorded Are you in a relationship wi th someone who hurts you emotionally and/or physically? 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 Gender Identity Not on file Sexual Orientation Not on file Last Filed Vital Signs Vital Sign Reading Time Taken Comments Blood Pressure 100/60 09/04/2023 1:52 PM CDT Pulse 87 09/04/2023 1:52 PM CDT Temperature 36.4 ??C (97.5 ??F) 09/04/2023 1:52 PM CD T Respiratory Rate 12 09/04/2023 1:52 PM CDT Oxygen Saturation 97% 09/04/2023 1:52 PM CDT Inhaled Oxygen Concentration - - Weight 92.1 kg (203 lb) 09/04/2023 1:52 PM CDT Height 163.5 cm (5' 4.37 ) 09/04/2023 1:52 PM CD T Body Mass Index 34.45 09/04/2023 1:52 PM CDT Plan of Treatment Upcoming Encounters Date Type Department Care Team (Late st Contact Info) Description 09/09/2024 2:00 PM CDT Office Visit [facility] Internal Medicine Medical [place] [facility] [address] [address] Govind Christopher MD [address] [address] Health Maintenance Due Date Last Done Comments PNEUMOCOCCAL VACCINE 0-64 YE ARS (1 of 1 - PPSV23 or PCV20) 02/26/2006 03/13/2001, 2000, 2000, Additional history exists DTAP/TDAP/TD VACCINES (7 - T d or Tdap) 09/27/2021 09/28/2011, 09/25/2005, 09/26/2001, Additional history exists INFLUENZA VACCINE (#1) 2023 09/04/2023, 2021 COVID-19 Vaccine (3 2023-2 5 season) 2023 03/07/2022, 07/24/2020 Preventative Visit- Commercial 04/16/2024 0 09/04/2023, 08/21/2022, 08/21/2022, Additional history exists HEPATITIS B VACCINES Completed 01/02/2001, 2000, 2000 HPV VACCINES Completed 06/21/2015, 11/2014, 10/12/[address] [employer] ACCESS CHOICE [address] [place] [phone] Care Teams Watch Technician Relationship Specialty Start Date End Date Govind Christopher MD [address] [place] [address] PCP - General Internal Medicine 07/15/18
--- OUTSIDE RECORDS SUMMARY | 2024-05-20 06:58 | XMS_ITS | Continuity of Care Document ---
Author Organization [facility] Address [address] [place] [address] Phone Care Team Providers Care Clinical Asst Name Role Phone Toni Barreto MD Unavailable Unavailable Allergies, Adverse Reactions, Alerts Substance Reaction Status Criticality Penicillins Active No Information Medications Medication Instructions Dosage Effective Dates (start - stop) Status Comments Linzess 72 mcg capsule TAKE 1 CAPSULE BY MOUTH EVERY DAY ON EMPTY STOMACH AT LEAST 30 MINUTES BEFORE FIRST MEAL OF THE DAY - Active ondansetron 8 mg disintegrating tablet take 1 tablet by oral route every 6 hours as needed for nausea 1 tablet - Active Lipitor 10 mg tablet take 1 tablet by oral route every day 10 MG - Active sertraline 50 mg tablet take 1 tablet by oral route every day 50 MG - Active Focalin 10 mg tablet take 1 tablet by oral route 2 times every day at least 4 hours apart 10 MG - Active LINZESS 72 MCG CAPSULE TAKE 1 CAPSULE BY MOUTH EVERY DAY ON EMPTY STOMACH AT LEAST 30 MINUTES BEFORE FIRST MEAL OF THE DAY - No Longer Active Procedures Procedure Date OFFICE [id number] BODY MASS INDEX DOCD SYST BP GE 130 - 139MM HG DIAST BP 80-89 MM HG OFFICE [id number] BODY MASS INDEX DOCD SYST BP LT 130 MM HG DIAST BP < 80 MM HG TISSUE EXAM BY PATHOLOGIST UPPER GI ENDOSCOPY BIOPSY TISSUE EXAM BY PATHOLOGIST COLONOSCOPY AND BIOPSY OFFICE [id number] BODY MASS INDEX DOCD SYST BP LT 130 MM HG DIAST BP 80-89 MM HG Advance Directives Directive Yes / No Effective Date File Name No Information Encounters Encounter Description Practice Location Reason(s) For Visit Diagnoses Date Provider Providers Copied on Encounter [email or web address], [address], [place], [place], [id number] , tel: [phone] [facility] No Information 5 Mary Lou Muñoz. [address] [place] [address], [id number] , [place]. tel: [phone] [email or web address], [address], [place], [place], [id number] , tel: [phone] [facility] No Information 4 Mary Lou Muñoz. [address] [place] [address], [id number] , [place]. tel: [phone] OFFICE RSGKS-FSW-FK PANDED [email or web address], [address], [place], [place], [id number] , [place] tel: [phone] [facility] GI problems (chief complaint) GastroparesisChron ic constipationLower abdominal pain 4 Mary Lou Muñoz. [address] [place] [address], [id number] , . tel: [phone] Referring Provider: Govind Christopher, [address] [facility] [address], [place], [address]. tel:[phone] OFFICE GCIVB-JZL-HQ TAILED [email or web address], [address], [place], [place], [address] , [place] tel: [phone] [facility] GI problems (chief complaint) Chronic nauseaWeight lossChronic constipationGastro paresis 3 Mary Lou Muñoz. [address] [place] [address], [id number] , [place]. tel: [phone] Referring Provider: Martha Marrero, [address] [place] [address], [address] . tel:[phone] [facility], [address], [place], [place], [id number] , [place] tel: [phone] [facility] No Information 3 Mary Lou Muñoz. [address] [place] [address], [id number] , [place]. tel: [phone] Referring Provider: Govind Christopher, [address] [facility], [place], [address]. tel:[phone] [facility], [address], [place], [place], [address] , [place] tel: [phone] [facility] No Information 3 Mary Lou Muñoz. [address] [place] [address], [id number] , [place]. tel: [phone] Referring Provider: Govind Christopher, [address] [facility], [place], [address]. tel:[phone] [email or web address], [address], [place], [place], [address] , [place] tel: [phone] [facility] No Information 3 Mary Lou Muñoz. [address] [place] [address], [id number] , [place]. tel: [phone] Referring Provider: Govind Christopher [address] [facility], [place], [address]. tel:[phone] [facility], [address], [place], [place], [address] , [place] tel: [phone] [facility] No Information 3 Mary Lou Muñoz. [address] [place] [address], [id number] , [place]. tel: [phone] Referring Provider: Toni Barreto, [address] [place] [address], [place], [address] . tel:[phone] OFFICE SONKN-JQR-OP [facility], [address], [place], [place], [address] , [place] tel: [phone] [facility] GI problems-- Diarrhea (chief complaint) Nausea vomiting and diarrheaDiarrhea, unspecifiedWeight lossLower abdominal pain 3 Mary Lou Muñoz. [address], [place], [place], [id number] , [place]. tel: [phone] Referring Provider: Govind Christopher, [address] [facility] [address], [place], [address]. tel:[phone] Family History Family Member Type Diagnosis Age At Onset No Information Payers Payer name Insurance type Covered democrat ID Authoriza tizen(s) BCBS ACCESS CHOICE BL [id number] Social History Type Description Quantity Date Captured Comments Sex Male Smoking Status No Information Chief Complaint And Reason For Visit No Information Reason For Referral Reason For Referral No Information Plan Of Treatment Date Type Action Status Referral Ordered: US Gallbladder Appointment date/timeframe: 12/07/2022 ordered Appointment Jose Goyal * BOOKED History Of Present Illness Encounter Date Complaint History Of Prese nt Illness GI problems Stopped Reglan d ue to side effectsGenerally doing OK. Very fatigued Weight stable for last few days. Taking Pepcid with meals.Nausea better. No vomiting. Food not making him sick anymore. Sill has bad days. Has cut hour. GI problems Continued nausea (not a lot of vomiting, only once). Losing weight (15 lbs). Smell of food or anything about food makes him sick. Problems with all meals. Usually has diarrhea (not oily). Protein bars and shakes make him constipated. [place] 1 and straining. GI problems--Diarrhea Over a mon th of diarrhea. Has also been having episodes of vomiting. has been having chronic nausea. In past would go once every other day. When diarrhea was bad would [place] 6 and 7 and go 6-7 times a day. He saw PMD and was put on imodium. This helped diarrhea but continues to have nausea. Put on zofran which has helped somewhat. No appetite and some weight loss.Also dealing with kidney stone problems.Lost 6 lbs. No under stress right now. No blood in urine. Hard to tell if having stomach pain due to kidney stones. CT scheduled for one week (kidney stones)Did not have to wake up for diarrhea. He has had to wake up for nausea. Functional Status Date Functional Assessmen t No Information Instructions Date Instruction Additional Infor alon See aboveFollow up i n 3 months (can make earlier appointment if needed) Related to Lower abdominal pain Continue Linzess Related to Bite Block Maker kelly constipation Continue present yashira atmentReglan stopped due to side effects Related to Gastroparesis Handout See above.Follow up (Patient or his family will call depending on symptoms) Related to Gastroparesis Hopefully able to ta ke more calories when less nauseated Related to Weight loss Start Motegrity 2 mg daily (if covered). Also has promotility effect. Related to Chronic constipation Increase Ondansetron to 8 mg QID as neededUsing Cannibis for symptoms which helpContinue Reglan as prescribed Related to Chronic nausea Handout Continue imodiumIf c ontinued problems may need colonoscopy Related to Diarrhea, unspecified See above Related to Weigh t loss See above Related to Lower abdominal pain Continue Ondansetron for nauseaEGD to be scheduledUS of GB to be scheduledCBC, CRP (has other blood tests done) Related to Nausea vomiting and diarrhea Handout Assessments Type Assessment Date No Information Patient Care Teams Name Effective Dates (start - stop) Status Members No Information
--- OUTSIDE RECORDS SUMMARY | 2024-05-20 06:58 | XMS_ITS | Encounter Summary ---
Author Organization [facility] Address [address] [facility] Attn: [place] [address] Care Team Providers Care Towel Stretcher Name Role Phone Govind Christopher MD Primary Care Provider Encounter Details Date Type Department Care Team (Late st Contact Info) Description 2000 Inpatient Historical Shannon Orellana MD NO ADDRESS ON FILE Yadira Pinzon MD [address] [place] [address] [place] [address] Twin, mate liveborn, born in hospital, delivered by delivery (Primary Dx) Social History Tobacco Use Types Packs/Day Years Used Date Smoking Tobacco: Never Assessed Sex and Gender Information Value Date Recorded Sex Assigned at Not on file 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 Gender Identity Not on file Sexual Orientation Not on file documented as of this encounter Plan of Treatment Upcoming Encounters Date Type Department Care Team (Late st Contact Info) Description 09/09/2024 2:00 PM CDT Office Visit [facility] Internal Medicine Medical [place] [facility] [address] [place] [address] Govind Christopher MD [address] [place] [address] [address] [place] [address] documented as of this encounter Visit Diagnoses Diagnosis Twin, mate liveborn, born in hospital, delivered by delivery- Primary documented in this encounter Care Teams Towel Stretcher Relationship Specialty Start Date End Date Govind Christopher MD [address] [place] [address] PCP - General Internal Medicine 07/15/18 documented as of this encounter
--- OUTSIDE RECORDS SUMMARY | 2024-05-20 06:58 | XMS_ITS | Clinical Summary ---
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 Encounters Date Type Department Care Team Description 04/02/2024 Orders Only [facility] ADMIT [address] [place] [address] Jeremy Curry MD from Last 3 Months Surgical History Surgery Date Site/Laterality Comments WISDOM TOOTH EXTRACTION FRONTALIS SUSPENSION TONGUE SURGERY PERCUTANEOUS NEPHROSTOMY PCN LEFT 07/08/2019 Left NEPHROURETERAL STENT PLACEME NT EXISTING ACCESS LEFT 07/15/2019 Left URETERAL STENT PLACEMENT VIA EXISTING TRACT LEFT 020 Left Medical History Medical History Date Comments Left renal stone 07/07/2019 Anxiety 07/07/2019 ADD (attention deficit disorder) Asthma 07/07/2019 Exercised induce d-7th grade Hyperlipidemia Family History Medical History Relation Name Comments Cancer Maternal Grandmother Heart disease Maternal Grandmother Diabetes Mother Relation Name Status Comments Maternal Grandmother Mother Social History Tobacco Use Types Packs/Day Years Used Date Smoking Tobacco: Never Smokeless Tobacco: Never Tobacco Cessation:Counseling Given: Not Answered Alcohol Use Standard Drinks/Week Comments Yes 0 (1 standard drink = 0.6 oz pur e alcohol) rare Sex and Gender Information Value Date Recorded Sex Assigned at Not on file 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 Gender Identity Male 11/25/2021 7:39 AM CDT Sexual Orientation Straight 11/25/2021 7: 39 AM CDT Obstetrics History Last Filed Vital Signs Vital Sign Reading [...] 11/29/2021 10:20 AM CDT Plan of Treatment Health Maintenance Due Date Last Done Comments Depression Screening 2000 Hepatitis C Screening 2000 Pneumococcal vaccine <65 (1 of 1 - PPSV23 or PCV20) 02/26/2006 03/13/2001, 03/13/2001, 2000, Additional history exists Regular Well Visit/Exam 18-64 02/26/2018 DTaP/Tdap/Td Vaccine (7 - Td or Tdap) 09/27/2021 09/28/2011, 09/25/2005, 09/26/2001, Additional history exists Influenza Vaccine (#1) 2023 03/07/2022 Varicella Vaccines Completed 07/17/2008, 03/10/2001 HPV Vaccines Completed 06/21/2015, 11/2014, 10/12/2014 Medical Devices Implanted Type Area Pilates Instructor Device Identifier Shelf Expiration Date Model / Serial / Lot [employer] [id number] Amplatz 8.5fr 26cm 6 Sideport Introducer Catheter String - [id number] Implanted:Qty: 1 on 07/17/2019 at [facility] [employer] 03/05/2022 [id number] / / [id number] Description:Left JJ stent pl aced by dr. Cohen Insurance [employer] ANTHEM ACCESS CHOICE Advance Directives For more information, please contact: [phone] * Full Code (Latest Code Status on File) Date Activated Date Inactivated Comments 07/15/2019 4:22 PM 07/17/2019 10:05 PM Care Teams Product Developer Relationship Specialty Start Date End Date Govind Christopher MD PCP - General Critical Care Med 11/23/21 Unknown, Notinfile 11/23/21 Aidan Maynard MD Consulting Physician Urology 07/17/19
[2024-05-20 07:10] VITALS: BP 135/82; PULSE 101; RESP 32; TEMP 36.7; O2SAT 95
--- NOTE | 2024-05-20 08:25 | ECG_ITS ---
Test Date: 2024-05-20 09:37:10 Measurements Intervals [place] Rate: 96 P: 61 CO: 121 QRS: 19 QRSD: 106 T: 6 QT: 350 QTc: 444 Interpretive Statements SINUS RHYTHM WITH SINUS ARRHYTHMIA NONSPECIFIC ST ELEVATION IN ANTERIOR LEADS BORDERLINE T WAVE ABNORMALITY- INFERIOR LEADS BASELINE ARTIFACT- I, III, AVR, AVL, V1 BORDERLINE ECG No previous ECG available for comparison Electronically Signed On 05-20-2024 09:46:38 BOOT LINER MAKER by Jeevan Lima D.O.
[2024-05-20 08:26] VITALS: O2SAT 97
[2024-05-20 08:27] VITALS: BP 140/86; O2SAT 97
[2024-05-20 08:31] VITALS: BP 123/73; PULSE 97; RESP 22; O2SAT 97
[2024-05-20] MEDS: KETOROLAC 30 MG/ML VIAL (*BKC) IM (09:29)
[2024-05-20] MEDS: HYDROcodone/acetaminophen (*CRX) 5-325 MG TABLET 1 TAB PO (09:29)
--- OUTSIDE RECORDS SUMMARY | 2024-05-20 09:32 | XMS_ITS | Patient Health Summary ---
Author Organization [facility] Address [address] [place] [address] Care Team Providers Care Supervisor Publications Name Role Phone Unavailable Primary Care Provider Unavailabl e Note from [facility],non-owned Affiliates and Associated Physician Practices is amultiple site organization consisting of ambulatory clinics and hospital sitesin [place], [place], [place] and [place]. This disclosure is being madepursuant to the Care Everywhere program and may not contain all information available regarding this patient. Last updated 18.[facility] Allergies No known active allergies Medications * [...] Comments Blood Pressure 90/56 05/01/2011 8:32 AM INVESTMENT FUND MANAGER Pulse 78 05/01/2011 8:32 AM INVESTMENT FUND MANAGER Temperature - - Respiratory Rate 18 05/01/2011 8:32 AM INVESTMENT FUND MANAGER Oxygen Saturation - - Inhaled Oxygen Concentration - - Weight 41.4 kg (91 lb 4.8 oz) 05/01/2011 8:32 AM INVESTMENT FUND MANAGER Height 131.8 cm (4' 3.89 ) 05/01/2011 8:32 AM CS T Body Mass Index 23.84 05/01/2011 8:32 AM INVESTMENT FUND MANAGER Procedures * LAB RESULTS ORDER(Performed 06/06/2011) * XR BONE AGE STUDY(Performed 05/01/2011) Performed for Short stature Results * LAB RESULTS ORDER (06/06/2011 4:04 PM INVESTMENT FUND MANAGER) Narrative Transcriptions Document, Scanned - 06/06/2011 4:04 PM CST Scanned Document LAB - THERAPEUTIC DR MAYERS MONITORING ORDERABLES * XR BONE AGE HAND AND WRIST (05/01/2011 9:39 AM INVESTMENT FUND MANAGER) Anatomical Region Laterality Modality Upper Extremity, Wrist / Hand Ra diographic Imaging 05/01/2011 10:4 2 AM INVESTMENT FUND MANAGER Narrative 05/01/2011 11:32 AM INVESTMENT FUND MANAGER EXAM: Bone Age Hand, male FINDINGS: Chronologic [...] MD Ti Mcgill MD DIAGNOSTIC IMAGING O [facility]
--- OUTSIDE RECORDS SUMMARY | 2024-05-20 09:32 | XMS_ITS | Referral Summary ---
Author Organization [facility] Address [address] [place] [address] Care Team Providers Care Tray Packer Name Role Phone Unavailable Primary Care Provider Unavailabl e Source Comments [facility],non-owned Affiliates and Associated Physician Practices is amultiple site organization consisting of ambulatory clinics and hospital sitesin [place], [place], [place] and [place]. This disclosure is being madepursuant to the Care Everywhere program and may not contain all information available regarding this patient. Last updated 18.[facility] [employer] Allergies No known active allergies Medications * [...] Comments Blood Pressure 90/56 05/01/2011 8:32 AM WEED CUTTER Pulse 78 05/01/2011 8:32 AM WEED CUTTER Temperature - - Respiratory Rate 18 05/01/2011 8:32 AM WEED CUTTER Oxygen Saturation - - Inhaled Oxygen Concentration - - Weight 41.4 kg (91 lb 4.8 oz) 05/01/2011 8:32 AM WEED CUTTER Height 131.8 cm (4' 3.89 ) 05/01/2011 8:32 AM CS T Body Mass Index 23.84 05/01/2011 8:32 AM WEED CUTTER Plan of Treatment Not on file
--- OUTSIDE RECORDS SUMMARY | 2024-05-20 09:32 | XMS_ITS | Clinical Summary ---
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 Cohen Insurance Spindle Spindle ANTHEM ACCESS CHOICE Advance Directives For more information, please contact: [phone] * Full Code (Latest Code Status on File) Date Activated Date Inactivated Comments 07/15/2019 4:22 PM 07/17/2019 10:05 PM Care Teams Stable Cleaner Relationship Specialty Start Date End Date Govind Christopher MD PCP - General Critical Care Med 11/23/21 Unknown, Notinfile 11/23/21 iAdan Maynard MD Consulting Physician Urology 07/17/19
--- OUTSIDE RECORDS SUMMARY | 2024-05-20 09:32 | XMS_ITS | Clinical Summary ---
Author Organization [facility] Address [address] [place] [address] Care Team Providers Care Mask Layout Designer Name Role Phone Unavailable Primary Care Provider Unavailabl e Source Comments [facility],non-owned Affiliates and Associated Physician Practices is amultiple site organization consisting of ambulatory clinics and hospital sitesin [place], [place], [place] and [place]. This disclosure is being madepursuant to the Care Everywhere program and may not contain all information available regarding this patient. Last updated 18.[facility] Allergies No known active allergies Medications * [...] Comments Blood Pressure 90/56 05/01/2011 8:32 AM COBOL DEVELOPER Pulse 78 05/01/2011 8:32 AM COBOL DEVELOPER Temperature - - Respiratory Rate 18 05/01/2011 8:32 AM COBOL DEVELOPER Oxygen Saturation - - Inhaled Oxygen Concentration - - Weight 41.4 kg (91 lb 4.8 oz) 05/01/2011 8:32 AM COBOL DEVELOPER Height 131.8 cm (4' 3.89 ) 05/01/2011 8:32 AM CS T Body Mass Index 23.84 05/01/2011 8:32 AM COBOL DEVELOPER Plan of Treatment Health Maintenance Due Date [...]
--- OUTSIDE RECORDS SUMMARY | 2024-05-20 09:32 | XMS_ITS | Referral Summary ---
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 Cohen Insurance ANTHEM ACCESS CHOICE ANTHEM ACCESS CHOICE ANTHEM ACCESS CHOICE ANTHEM ACCESS CHOICE Advance Directives For more information, please contact: [phone] * Full Code (Latest Code Status on File) Date Activated Date Inactivated Comments 07/15/2019 4:22 PM 07/17/2019 10:05 PM Care Teams Window Glass Installer Relationship Specialty Start Date End Date Govind Christopher MD PCP - General Critical Care Med 11/23/21 Unknown, Notinfile 11/23/21 Aidan Maynard MD Consulting Physician Urology 07/17/19
--- OUTSIDE RECORDS SUMMARY | 2024-05-20 09:32 | XMS_ITS | Encounter Summary ---
Author Organization Address [address] [place] [address] Care Team Providers Care Performance Makeup Artist Name Role Phone Govind Christopher MD Primary Care Provider Encounter Details Date Type Department Care Team (Late st Contact Info) Description 01/20/2022 Abstract [facility] Internal Medicine [address] [address] Govind Christopher MD [address] [place] [address] Social History Tobacco Use Types Packs/Day Years Used Date Smoking Tobacco: Never Smokeless Tobacco: Never Alcohol Use Standard Drinks/Week Comments No 0 (1 standard drink = 0.6 oz pur e alcohol) Sex and Gender Information Value Date Recorded Sex Assigned at Not on file 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 Gender Identity Not on file Sexual Orientation Not on file documented as of this encounter Plan of Treatment Upcoming Encounters Date Type Department Care Team (Late st Contact Info) Description 09/09/2024 2:00 PM CDT Office Visit [facility] Internal Medicine [facility] [address] [place], [place] [address] [place] [address] Govind Christopher MD [address] [place] [address] documented as of this encounter Visit Diagnoses Not on filedocumented in this encounter Additional Health Concerns Assessment Noted Time PHQ-9 Depression Total Score: 1 11/09/19 22 10:39 AM CDT documented as of this encounter Care Teams Performance Makeup Artist Relationship Specialty Start Date End Date Govind Christopher MD [address] [place] [address] PCP - General Internal Medicine 07/15/18 documented as of this encounter
--- OUTSIDE RECORDS SUMMARY | 2024-05-20 09:32 | XMS_ITS | Clinical Summary ---
Author Organization [facility] Address [address] [place] [address] Phone Care Team Providers Care Plan Nurse Name Role Phone Govind Christopher MD Primary Care Provider Allergies Active Allergy Reactions Criticality Noted Date [...] Data STL ABSTRACTION Provider, Abstract 03/17/2024 Telephone [facility] Internal Medicine [facility] [address] [facility] [address] [address] Govind Christopher MD Medication Problem [...] on file Legal Sex Male 4:34 AM 4 H YOUTH DEVELOPMENT SPECIALIST Gender Identity Not on file Sexual Orientation [...] Description 09/09/2024 2:00 PM CDT Office Visit [facility] Internal Medicine [facility] [place] [facility] [address] [facility] [address] [address] Govind Christopher MD [address] [facility] [address] [address] Health Maintenance Due Date Last [...] 06/21/2015, 11/2014, 10/12/[address] [employer] ACCESS CHOICE [address] [place] [id number] Care Teams Plan Nurse Relationship Specialty Start Date End Date Govind Christopher MD [address] [place] [address] PCP - General Internal Medicine 07/15/18
--- OUTSIDE RECORDS SUMMARY | 2024-05-20 09:32 | XMS_ITS | Encounter Summary ---
Author Organization [facility] Address [address] [place] [address] Care Team Providers Care Modeling Agent Name Role Phone Unknown, Notinfile Primary Care Provider Unavail able Govind Christopher MD Primary Care Provider [phone]- [phone] Unknown, Notinfile Unavailable Unavailable Aidan Maynard MD Unavailable [phone] Encounter Details Date Type Department Care Team (Late st Contact Info) Description 07/23/[address] 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
--- OUTSIDE RECORDS SUMMARY | 2024-05-20 09:33 | XMS_ITS | Encounter Summary ---
Author Organization [facility] Address [address] [facility] Attn: [place] [address] Care Team Providers Care Garden Center Manager Name Role Phone Govind Christopher MD Primary Care Provider Encounter Details Date Type Department Care Team (Late st Contact Info) Description 2000 Inpatient Historical Shannon Orellana MD NO ADDRESS ON FILE Yadira Pinzon MD [address] [place] [address] [place] [address] Twin, mate liveborn, born in hospital, delivered by delivery (Primary Dx) Social History Tobacco Use Types Packs/Day Years Used Date Smoking Tobacco: Never Assessed Sex and Gender Information Value Date Recorded Sex Assigned at Not on file 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 Gender Identity Not on file Sexual Orientation Not on file documented as of this encounter Plan of Treatment Upcoming Encounters Date Type Department Care Team (Late st Contact Info) Description 09/09/2024 2:00 PM CDT Office Visit [facility] Internal Medicine Medical [place] [facility] [address] [facility] [address] [place] [address] Govind Christopher MD [address] [place] [address] [address] [place] [address] documented as of this encounter Visit Diagnoses Diagnosis Twin, mate liveborn, born in hospital, delivered by delivery- Primary documented in this encounter Care Teams Garden Center Manager Relationship Specialty Start Date End Date Govind Christopher MD [address] [place] [address] PCP - General Internal Medicine 07/15/18 documented as of this encounter
--- OUTSIDE RECORDS SUMMARY | 2024-05-20 09:33 | XMS_ITS | Clinical Summary ---
Author Organization [facility] Address [address] [place] [address] Phone Care Team Providers Care Shipfitter Name Role Phone Govind Christopher MD Primary Care Provider [phone] Allergies Active Allergy Reactions Criticality Noted Date [...] Department Care Team Description 04/02/2024 Orders Only [facility] [address] [place] [address] Gila Jc MA Nephrolithiasis (Primary Dx) 04/02/2024 Orders Only [facility] [address] [place] [address] Jeremy Curry MD Nephrolithiasis (Primary Dx) from [...] st Contact Info) Description 05/28/2024 3:20 PM MACHINE PRESSER Office Visit [facility] [address] [place] [address] Jeremy Curry MD [address] [place], [place] [id number] Health Maintenance Due Date Last Done Comments Pneumococcal PPSV23 Highest Risk Adult (2 of 3 - PPSV23) 02/26/2019 03/13/2001, 2000, 2000, Additional history exists Influenza Vaccine (#1) 2023 03/07/2022 Procedures Procedure Name Priority Date/Time Associated Diagnosis Comments RENAL FUNCTION PANEL (RFP) Routine 05/08/2024 11:15 AM MACHINE PRESSER Nephrolithiasis LITHOLINK 24-HOUR URINE, [place] Routine 04/28/2024 6:45 AM MACHINE PRESSER Nephrolithiasis from Last 3 Months Results * Renal Function Panel (RFP) (05/08/2024 11:15 AM MACHINE PRESSER) Glucose, Serum/Plasma 99 65 - 99 mg/dL [facility] ([facility]) Comment: ? Fasting reference interval Urea nitrogen, Serum/Plasma (BUN) 14 7 - 25 mg/dL [facility] ([facility]) Creatinine, Serum/Plasma 0.83 0.60 - 1.24 mg/dL [facility] ([facility]) Estimated Glomerular Filtration Rate (eGFR) 125 > OR = 60 mL/min/1.[address] [facility] ([facility]) Urea nitrogen/Creati nine, Serum/Plasma SEE NOTE: (calc) [facility] ([facility]) Comment: ?? Not Reported: BUN and Creatinine are within ?? reference range. ? Sodium, Serum/Plasma 140 135 - 146 mmol/L [facility] ([facility]) Potassium, Serum/Plasma 4.3 3.5 - 5.3 mmol/L [facility] ([facility]) Chloride, Serum/Plasma 103 98 - 110 mmol/L [facility] ([facility]) Carbon dioxide CO2), total, Serum/Plasma 27 20 - 32 mmol/L [facility] ([facility]) Calcium, Serum/Plasma 9.8 8.6 - 10.3 mg/dL [facility] ([facility]) Phosphate, Serum/Plasma 3.1 2.5 - 4.5 mg/dL [facility] ([facility]) Albumin, Serum/Plasma 4.9 3.6 - 5.1 g/dL [facility] ([facility]) Blood (Blood, Venous) 05/08/2024 11:15 AM MACHINE PRESSER 05/08/2024 11:16 AM MACHINE PRESSER Narrative Resulting Agency Comment Performing Organization Information: ?Site ID: [id number] ?Name: [facility] ?Address: Count includes the [facility] [place] [address] ?Director: Mila Diaz Jeremy Curry MD LAB BLOOD ORDERABLES [facility] (ST) * (ABNORMAL) Litholink 24-Hour Urine Panel (04/28/2024 6:45 AM MACHINE PRESSER) CYSTINE, URINE, QUALITATIVE CANCELED [facility] 1 Comment: [...] PDF . [facility] 1 04/28/2024 6:45 AM MACHINE PRESSER 05/01/2024 11:00 PM MACHINE PRESSER Narrative [facility] - 05/03/2024 2:07 AM MACHINE PRESSER Performed at: ??01 - [facility] [address] ??[id number] [place]: Eliza Leon PhD, Phone: ??[phone] Jeremy Curry MD LAB URINE ORDERABLES [facility] 1 from Last 3 Months Care Teams Shipfitter Relationship Specialty Start Date End Date Govind Christopher MD [address] [place] [address] PCP - General Internal Medicine 08/05/19"
--- OUTSIDE RECORDS SUMMARY | 2024-05-20 09:33 | XMS_ITS | Encounter Summary ---
Author Organization [facility] Address [address] [place] [address] Care Team Providers Care Oven Attendant Name Role Phone Govind Christopher MD Primary Care Provider Encounter Details Date Type Department Care Team (Late st Contact Info) Description 2000 Outpatient Historical [facility] Pediatrics - [facility] [address] [facility] [address] [address] Bright Joy MD [address] [place] [address] [address] [address] Social History Tobacco Use Types Packs/Day Years Used Date Smoking Tobacco: Never Assessed Sex and Gender Information Value Date Recorded Sex Assigned at Not on file Legal 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 Male 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 Gender Identity Not on file Sexual Orientation Not on file documented as of this encounter Plan of Treatment Upcoming Encounters Date Type Department Care Team (Late st Contact Info) Description 09/09/2024 2:00 PM CDT Office Visit [facility] Internal Medicine [facility] [address] [facility] [address] [address] Govind Christopher MD [address] [place] [address] [address] [place] [address] documented as of this encounter Visit Diagnoses Not on filedocumented in this encounter Care Teams Oven Attendant Relationship Specialty Start Date End Date Goivnd Christopher MD [address] [place] [address] PCP - General Internal Medicine 07/15/18 documented as of this encounter
--- OUTSIDE RECORDS SUMMARY | 2024-05-20 09:33 | XMS_ITS | Encounter Summary ---
Author Organization [facility] Address [address] [place] [address] Care Team Providers Care Pipe Fitter Supervisor Maintenance Name Role Phone Govind Christopher MD Primary Care Provider Encounter Details Date Type Department Care Team (Late st Contact Info) Description 2000 Outpatient Historical [facility] Pediatrics - 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 Gender Identity Not on file Sexual Orientation Not on file documented as of this encounter Plan of Treatment Upcoming Encounters Date Type Department Care Team (Late st Contact Info) Description 09/09/2024 2:00 PM CDT Office Visit [facility] Internal Medicine [facility] [address] [facility] [address] [address] Govind Christopher MD [address] [place] [address] [address] [place] [address] documented as of this encounter Visit Diagnoses Not on filedocumented in this encounter Care Teams Pipe Fitter Supervisor Maintenance Relationship Specialty Start Date End Date Govind Christopher MD [address] [place] [address] PCP - General Internal Medicine 07/15/18 documented as of this encounter
--- OUTSIDE RECORDS SUMMARY | 2024-05-20 09:33 | XMS_ITS | Encounter Summary ---
Author Organization [facility] Address [address] [place] [address] Care Team Providers Care Neonatal Intensive Care Nurse Name Role Phone Govind Christopher MD Primary Care Provider Encounter Details Date Type Department Care Team (Late st Contact Info) Description 2000 Outpatient Historical [facility] - [facility] [place] [address] [facility] [address] [address] Shannon Orellana MD NO ADDRESS ON FILE Social History Tobacco Use Types Packs/Day Years Used Date Smoking Tobacco: Never Assessed Sex and Gender Information Value Date Recorded Sex Assigned at Not on file Legal 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 Male 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 Gender Identity Not on file Sexual Orientation Not on file documented as of this encounter Plan of Treatment Upcoming Encounters Date Type Department Care Team (Late st Contact Info) Description 09/09/2024 2:00 PM CDT Office Visit [facility] Internal Medicine [facility] [place] [facility] [address] [facility] [address] [address] Govind Christopher MD [address] [facility] [facility] [address] [address] documented as of this encounter Visit Diagnoses Not on filedocumented in this encounter Care Teams Neonatal Intensive Care Nurse Relationship Specialty Start Date End Date Govind Christopher MD [address] [place] [address] PCP - General Internal Medicine 07/15/18 documented as of this encounter
[2024-05-20 09:42] LABS: Basophils Percent Auto 0.2 % (0.2-1.2); Eosinophils Absolute Auto 0.1 K/mm3 (0-0.3); Eosinophils Percent Auto 0.4 % (0-4.4); Hematocrit 41.4 % (42.0-52.0); Hemoglobin 13.9 g/dL (14.0-18.0); Immature Granulocyte Absolute 0.04 K/mm3 (0.00-0.031); Immature Granulocyte Percent A 0.3 % (0-0.5); Lymphocytes Absolute Auto 1.31 K/mm3 (0.9-3.2); Lymphocytes Percent Auto 9.6 % (18.3-44.2); Mean Corpuscular HGB Conc 33.6 g/dl (32-36); Mean Corpuscular Hemoglobin 30.3 pg (26-34); Mean Corpuscular Volume 90.4 fl (80-100); Mean Platelet Volume 10.1 fl (7.4-10.4); Monocytes Absolute Auto 1.1 K/mm3 (0.1-0.6); Monocytes Percent Auto 7.7 % (2.6-8.5); Neutrophils Absolute Auto 11.2 K/mm3 (1.3-6.7); Neutrophils Percent Auto 81.8 % (45.5-73.1); Platelet Count Result 254 k/mm3 (150-375); Red Blood Count 4.58 M/mm3 (4.6-6.20); Red Cell Distribution Width 12.5 % (11.5-14.5); White Blood Count 13.6 K/mm3 (4.5-10.0)
[2024-05-20 09:48] LABS: Influenza A QL RT-PCR Negative (Negative); Influenza B QL RT-PCR Negative (Negative); RSV RNA, RT-PCR Negative (Negative); SARS-CoV-2 RNA PCR Negative (Negative)
[2024-05-20 09:53] LABS: Alanine Aminotransferase 46 U/L (6-50); Albumin Level 4.7 g/dL (3.5-5.1); Alkaline Phosphatase 92 U/L (38-126); Anion Gap 11 mmol/L (4-12); Aspartate Amino Transferase 25 U/L (17-59); Bilirubin,Total 0.8 mg/dL (0.2-1.3); Blood Urea Nitrogen 13 mg/dL (9-20); Calcium 9.4 mg/dL (8.4-10.2); Carbon Dioxide 28 mmol/L (22-30); Chloride 99 mmol/L (98-107); Estimated CRCL calculation 151 ml/min; Estimated Glomerular Filt Rate > 60; Glucose 120 mg/dL (65-110); Potassium 3.6 mmol/L (3.4-5.0); Sodium 138 mmol/L (137-145)
--- NOTE | 2024-05-20 10:09 | ED.GENADULT ---
HPI - General Adult General Chief complaint: Shortness of Breath/Dyspnea Stated complaint: right rib pain Time Seen by Provider: 05/20/24 08:34 Source: patient and family Mode of arrival: ambulatory Limitations: no limitations History of Present Illness HPI narrative: 24-year-old with a history of ADHD, anxiety disorder here with a complaint of right scapular pain since yesterday. Patient states that he was stretching under was standing has been having constant pain in his back also having difficulty in breathing and chest pain. He denies any cough or fever or chills. Onset (ago): day(s) (1) Severity: moderate Quality: aching Pain Consistency: constant Relieving factors: none Exacerbating factors: movement Associated symptoms: denies other symptoms Treatments prior to arrival: none Related Data Home Medications ?Medication ?Instructions ?Recorded ?Confirmed ?Last Taken ?Type alprazolam 0.25 mg tablet 0.25 mg PO PRN PRN Anxiety 12/02/20 12/22/22 02/09/21 History sertraline 50 mg tablet 50 mg PO HS 12/02/20 12/22/22 02/10/21 History acetaminophen 500 mg tablet 1,000 mg PO Q4-6H PRN PAIN 12/07/20 12/22/22 12/06/20 History hydrochlorothiazide 12.5 mg tablet 12.5 mg PO BID 11/07/21 12/22/22 Unknown History tamsulosin 0.4 mg capsule 0.4 mg PO DAILY 11/07/21 12/22/22 Unknown History atorvastatin 10 mg tablet 10 mg PO DAILY 12/21/22 12/22/22 Unknown History potassium citrate 15 mEq (1,620 15 meq PO BID 12/21/22 12/22/22 Unknown History mg) tablet,extended release linaclotide 72 mcg capsule 72 mcg PO DAILY 03/06/23 Unknown History (Linzess) ondansetron 4 mg disintegrating 4 mg PO Q8H 03/06/23 Unknown History tablet Allergies Allergy/AdvReac Type Severity Reaction Status Date / Time amoxicillin (From Augmentin) AdvReac Mild Rash Verified 03/06/23 15:03 clavulanic acid (From AdvReac Mild Rash Verified 03/06/23 15:03 Augmentin) Review of Systems Review of Systems: All systems reviewed & are unremarkable except as noted in HPI and below Constitutional: Constitutional: Reports no additional constitutional complaints Eyes: Eyes: Reports no additional eye complaints ENT: Reports system reviewed and no additional complaints, except as documented Cardiovascular: Cardiovascular: Reports no additional cardiovascular complaints Respiratory: Respiratory: Reports as per HPI Gastrointestinal: Gastrointestinal: Reports no additional gastrointestinal complaints Musculoskeletal: Musculoskeletal: Reports no additional musculoskeletal complaints Integumentary/Breasts: Skin/Breast: Reports system reviewed and no additional complaints, except as docu Neurologic: Reports system reviewed and no additional complaints, except as documented Psychiatric: Psychiatric: Reports no additional psychiatric complaints PMFSH Past Medical History Medical History Hyperlipidemia Anxiety Obesity Kidney stones ADHD Asthma Surgical History Surgical History No significant past surgical history Social History Social History Smoking status: Never smoker Alcohol intake: current Drinks per week: 1 Alcohol use details: 2-4/MONTH Substance use: current Substance use type: marijuana Last use: 12/20/22 Living arrangements: with family Spiritual care concerns: No Exam Narrative: GENERAL: Well-appearing, well-nourished, and in no acute distress. HEAD: Normocephalic, atraumatic. EYES: PERRLA and EOMI. NECK: Supple. CHEST: Clear to auscultation. No respiratory distress. HEART: Regular rate and rhythm. No murmur heard. Normal peripheral pulses. ABDOMEN: Soft, nontender, nondistended, normal active bowel sounds. EXTREMITIES: Normal range of motion. No edema. SKIN: Warm, dry, no rash. NEURO: No focal deficits. Alert and oriented x3. PSYCH: Normal mood and affect. Course Course Emergency Course: Patient feeling better after pain medication. Informed him and his mother about the lab work, chest x-ray EKG findings. He feels comfortable going home. Advised him to take medications as prescribed. Vital Signs Vital signs: Vital Signs Temperature 36.7 C 05/20/24 07:10 Pulse Rate 101 H 05/20/24 07:10 Respiratory Rate 32 H 05/20/24 07:10 Blood Pressure 135/82 05/20/24 07:10 Pulse Oximetry 95 05/20/24 07:10 Oxygen Delivery Room Air 05/20/24 07:10 Temperature 36.7 C 05/20/24 07:10 Pulse Rate 101 H 05/20/24 07:10 Respiratory Rate 32 H 05/20/24 07:10 Blood Pressure 135/82 05/20/24 07:10 Pulse Oximetry 97 05/20/24 08:26 Oxygen Delivery Room Air 05/20/24 08:26 Medical Decision Making Differential Diagnosis Differential Diagnosis: Pneumonia MSK pain anxiety Vital Signs Vital Signs: Vital Signs Temperature 36.7 C 05/20/24 07:10 Pulse Rate 101 H 05/20/24 07:10 Respiratory Rate 32 H 05/20/24 07:10 Blood Pressure 135/82 05/20/24 07:10 Pulse Oximetry 95 05/20/24 07:10 Oxygen Delivery Room Air 05/20/24 07:10 Temperature 36.7 C 05/20/24 07:10 Pulse Rate 101 H 05/20/24 07:10 Respiratory Rate 32 H 05/20/24 07:10 Blood Pressure 135/82 05/20/24 07:10 Pulse Oximetry 97 05/20/24 08:26 Oxygen Delivery Room Air 05/20/24 08:26 Lab Data 05/20/24 09:36 05/20/24 09:36 Labs: Lab Results 05/20/24 05/20/24 Range/Units 09:07 09:36 WBC 13.6 H (4.5-10.0) K/mm3 RBC 4.58 L (4.6-6.20) M/mm3 Hgb 13.9 L (14.0-18.0) g/dL Hct 41.4 L (42.0-52.0) % MCV 90.4 (80-100) fl MCH 30.3 (26-34) pg MCHC 33.6 (32-36) g/dl RDW 12.5 (11.5-14.5) % Plt Count 254 (150-375) k/mm3 MPV 10.1 (7.4-10.4) fl Immature Gran % (Auto) 0.3 (0-0.5) % Neut % (Auto) 81.8 H (45.5-73.1) % Lymph % (Auto) 9.6 L (18.3-44.2) % Granite % (Auto) 7.7 (2.6-8.5) % Eos % (Auto) 0.4 (0-4.4) % Baso % (Auto) 0.2 (0.2-1.2) % Lymph # (Auto) 1.31 (0.9-3.2) K/mm3 Granite # (Auto) 1.1 H (0.1-0.6) K/mm3 Eos # (Auto) 0.1 (0-0.3) K/mm3 Baso # (Auto) 0.0 (0.0-0.1) K/mm3 Abs Immat Gran (auto) 0.04 H (0.00-0.031) K/mm3 Absolute Neuts (auto) 11.2 H (1.3-6.7) K/mm3 Absolute Nucleated RBC 0.000 (0.0-0.012) K/mm3 Nucleated RBC % 0.0 (0.0-0.2) % Sodium 138 (137-145) mmol/L Potassium 3.6 (3.4-5.0) mmol/L Chloride 99 (98-107) mmol/L Carbon Dioxide 28 (22-30) mmol/L Anion Gap 11 (4-12) mmol/L BUN 13 (9-20) mg/dL Creatinine 0.68 L (0.7-1.3) mg/dL Estim Creat Clear Calc 151 ml/min Estimated GFR > 60 (59 - ) Glucose 120 H (65-110) mg/dL Calcium 9.4 (8.4-10.2) mg/dL Total Bilirubin 0.8 (0.2-1.3) mg/dL AST 25 (17-59) U/L ALT 46 (6-50) U/L Alkaline Phosphatase 92 (38-126) U/L Total Protein 8.0 (6.3-8.2) g/dL Albumin 4.7 (3.5-5.1) g/dL Influenza A (RT-PCR) Negative (Negative) Influenza B (RT-PCR) Negative (Negative) RSV (RT-PCR) Negative (Negative) SARS-CoV-2 RNA (RT-PCR) Negative (Negative) ECG Data EKG #1: ECG completion date: 05/20/24 ECG completion time: 09:37 EKG Interpretation: normal rate (96), sinus rhythm, no ectopy, no ST changes, NL axis and no acute changes Discharge Plan Discharge Clinical Impression: Acute upper back pain Patient Disposition: Home, Self-Care Condition: Stable Instructions: Antibiotic Form, Back Pain (ED) Additional Instructions: Continue home medication take muscle relaxer and pain medicine as prescribed Patient Language: Tunisian Prescriptions: New cyclobenzaprine 5 mg tablet 5 mg PO TID PRN (Reason: muscle spasm) Qty: 20 0RF naproxen sodium [Anaprox DS] 550 mg tablet 550 mg PO Q12H PRN (Reason: pain) Qty: 14 0RF No Action Linzess 72 mcg capsule 72 mcg PO DAILY ondansetron 4 mg tablet,disintegrating 4 mg PO Q8H atorvastatin 10 mg tablet 10 mg PO DAILY potassium citrate 15 mEq tablet extended release 15 meq PO BID sertraline 50 mg tablet 50 mg PO HS alprazolam 0.25 mg tablet 0.25 mg PO PRN PRN (Reason: Anxiety) acetaminophen 500 mg Tablet 1,000 mg PO Q4-6H PRN (Reason: PAIN) tamsulosin 0.4 mg Capsule 0.4 mg PO DAILY hydrochlorothiazide 12.5 mg tablet 12.5 mg PO BID Follow-up/Referrals: PHYSICIAN NOT ON STAFF,NONSTAFF [Primary Care Provider] - Time of Disposition: 10:16
== END 2024-05-20 10:27 | disposition home or self-care (01) ==
PROVIDERS: Emergency Provider Family Medicine
DX: M54.9 Dorsalgia, unspecified (principal); Z20.822 Contact with and (suspected) exposure to COVID-19; F90.9 Attention-deficit hyperactivity disorder, unspecified type; F41.9 Anxiety disorder, unspecified; Z87.442 Personal history of urinary calculi; J45.909 Unspecified asthma, uncomplicated; E78.5 Hyperlipidemia, unspecified; E66.9 Obesity, unspecified; Z68.38 Body mass index [BMI] 38.0-38.9, adult
CPT/HCPCS: 36415; 71046; 80053; 85025; 87637; 93005; 96372; 99284; A9270; J1885

== ENCOUNTER 2024-06-04 05:00 | Day surgery (SDC) | payer BC, SELFPAY ==
[2024-06-04] VITALS (14 sets, daily range): BP systolic 102–176; BP diastolic 60–104; PULSE 69–90; RESP 12–20; TEMP 36.4–37.1; O2SAT 93–99
--- NOTE | ~2024-06-04 | XR_ITS ---
EXAMINATION: XR abdomen/kub 1V DATE: 06/04/2024 08:35 INDICATION: Nephrolithiasis for preoperative evaluation. TECHNIQUE: A supine view of the abdomen on 2 radiographs was obtained. COMPARISON: CT dated 06/04/2024 FINDINGS: No change in position of a cluster of stones at a lower pole calyx of the left knee and a [address] one in the proximal left ureter. No right-sided nephrolithiasis. Normal bowel gas pattern. Bones are unremarkable. IMPRESSION: 1. Unchanged left nephrolithiasis including a 9 x 5 mm proximal left ureteral stone. Reviewed, dictated and finalized at location A. RUNNER IMPRESSION: 1. Unchanged left nephrolithiasis including a 9 x 5 mm proximal left ureteral s tone.
--- NOTE | ~2024-06-04 | CT_ITS ---
Non-contrast CT scan of the Abdomen and Pelvis Clinical indication: Left flank pain Technique: 2.5 mm axial scans were obtained through the abdomen and pelvis without intravenous or or al contrast. Dose reduction technique was used on this scan by utilizing automated exposure control a nd iterative reconstruction technique. The dose-length product (DLP) was 1289.22 mGy-cm. COMPARISON: 07/17/2023 Findings: Images through the lung bases reveal calcified left basilar granuloma. There is a 7 mm round stone at the proximal left ureter with mild to moderate hydroureteronephrosis t o this level. Additional irregular 9 mm nonobstructing left renal stone present. No right renal or ri ght ureteral stone. No right hydronephrosis. There is diffuse fatty infiltration of the liver. The spleen, pancreas, gallbladder, and adrenals bon ear normal. There is no aortic aneurysm. There is no evidence of bowel obstruction. Images through the pelvis were performed. There is no evidence of ascites or lymphadenopathy. Urinary bladder unremarkable. No pelvic mass seen. No ascites. Impression: 7 mm proximal left ureteral stone with mild to moderate left hydroureteronephrosis to this level. Additional 9 mm irregular nonobstructing left renal stone. Diffuse fatty infiltration of the liver. Reviewed, dictated and finalized at location . Y MIXER Impression: 7 mm proximal left ureteral stone with mild to moderate left hydroureteronephro sis to this level. Additional 9 mm irregular nonobstructing left renal stone. Diffuse fatty infiltration of the liver.
--- NOTE | ~2024-06-04 | XR_ITS ---
EXAMINATION: XR retrograde pyelo w/stent LT DATE: 06/04/2024 10:09 INDICATION: Left internal ureteral stent placement TECHNIQUE: Fluoroscopic images from a left stent placement are submitted for review. 58 seconds of fl uoroscopy time. FINDINGS: There is a left double-J ureteral stent. Ureteral stent projecting in expected position, with proxima l [place]ia loop at the level of the renal pelvis and distal loop in the pelvis within the bladder lumen. IMPRESSION: 1. Left internal ureteral stent placement. Please refer to real-time procedural findings for detail s. Reviewed, dictated and finalized at location B. ORATOR OPERATOR IMPRESSION: 1. Left internal ureteral stent placement. Please refer to real-time procedur al findings for details.
--- OUTSIDE RECORDS SUMMARY | 2024-06-04 05:02 | XMS_ITS | Clinical Summary ---
Author Organization [facility] Address [address] [place] [address] Care Team Providers Care Bicycle Racer Name Role Phone Govind Christopher MD Primary Care Provider [phone] Unknown, Notinfile Unavailable Unavailable Aidan Maynard MD Unavailable [phone] Allergies Active Allergy Reactions Criticality Noted [...] Care Team Description 04/02/2024 Orders Only [facility] [address] [place] [address] Jeremy Curry MD from Last 3 Months [...] on file Legal Sex Male 7:59 AM HOSPITAL NURSE LIAISON Gender Identity Male 11/25/2021 7:39 AM CDT Sexual Orientation Straight 11/25/2021 7: 39 AM CDT Obstetrics History Last Filed Vital Signs Vital Sign Reading Time Taken Comments Blood Pressure 121/75 11/29/2021 10:20 AM CDT Pulse 75 11/29/2021 10:20 AM CDT Temperature 36.3 C (97.3 F) 11/29/2021 10:20 AM CDT Respiratory Rate 16 11/29/2021 10:20 AM CDT [...] 11/2014, 10/12/2014 Medical Devices Implanted Type Area Job Interviewer Device Identifier Shelf Expiration Date Model / Serial / Lot [employer] [id number] Amplatz 8.5fr 26cm 6 Sideport Introducer Catheter String - [id number] Implanted:Qty: 1 on 07/17/2019 at [facility] [employer] 03/05/2022 [id number] / / [id number] Description:Left JJ stent pl aced by dr. Cohen Insurance [employer] CHOICE [employer] ACCESS CHOICE ANTHEM ACCESS CHOICE Advance Directives For more information, please contact: [phone] * Full Code (Latest Code Status on File) Date Activated Date Inactivated Comments 07/15/2019 4:22 PM 07/17/2019 10:05 PM Care Teams Bicycle Racer Relationship Specialty Start Date End Date Govind Christopher MD PCP - General Critical Care Med 11/23/21 Unknown, Notinfile 11/23/21 Aidan Maynard MD Consulting Physician Urology 07/17/19
--- OUTSIDE RECORDS SUMMARY | 2024-06-04 05:02 | XMS_ITS | Clinical Summary ---
Author Organization [facility] Address [address] [place] [address] Phone Care Team Providers Care Highway Maintenance Supervisor Name Role Phone Govind Christopher MD Primary Care Provider [phone] Allergies Active Allergy Reactions Criticality Noted Date [...] Data STL ABSTRACTION Provider, Abstract 03/17/2024 Telephone [facility] Internal Medicine [facility] [address] [address] Govind Christopher MD Medication Problem from Last 3 Months Immunizations Immunization Administration [...] on file Legal Sex Male 4:34 AM BOOKIE Gender Identity Not on file Sexual Orientation Not on file Last Filed Vital Signs Vital Sign Reading Time Taken Comments Blood Pressure 100/60 09/04/2023 1:52 PM CDT Pulse 87 09/04/2023 1:52 PM CDT Temperature 36.4 C (97.5 F) 09/04/2023 1:52 PM CDT Respiratory Rate 12 09/04/2023 1:52 PM CDT [...] Description 09/09/2024 2:00 PM CDT Office Visit [facility] Internal Medicine [facility] [place] [facility] [address] [place] [address] Govind Christopher MD [address] [place] [address] Health Maintenance Due Date Last Done Comments PNEUMOCOCCAL VACCINE 0-64 YE ARS (1 of 1 - PPSV23 or PCV20) 02/26/2006 03/13/2001, 2000, 2000, Additional history exists DTAP/TDAP/TD VACCINES (7 - T d or Tdap) 09/27/2021 09/28/2011, 09/25/2005, 09/26/2001, Additional history exists INFLUENZA VACCINE (#1) 2023 09/04/2023, 2021 COVID-19 Vaccine (3 - 2023-2 5 season) 2023 03/07/2022, 07/24/2020 Preventative Visit- Commercial 04/16/2024 0 09/04/2023, 08/21/2022, 08/21/2022, Additional history exists HEPATITIS B VACCINES Completed 01/02/2001, 2000, 2000 HPV VACCINES Completed 06/21/2015, 11/2014, 10/12/2014 Insurance HANSA PORTILLO [address] [employer] ACCESS CHOICE Care Teams Highway Maintenance Supervisor Relationship Specialty Start Date End Date Govind Christopher MD [address] [place] [id number] PCP - General Internal Medicine 07/15/18
--- OUTSIDE RECORDS SUMMARY | 2024-06-04 05:02 | XMS_ITS | Clinical Summary ---
Author Organization [facility] [employer] Address [address] [place] [address] Care Team Providers Care Manager Service Desk Name Role Phone Unavailable Primary Care Provider Unavailabl e Source Comments [facility],non-owned Affiliates and Associated Physician Practices is amultiple site organization consisting of ambulatory clinics and hospital sitesin [place], [place], [place] and [place]. This disclosure is being madepursuant to the Care Everywhere program and may not contain all information available regarding this patient. Last updated 18.[facility] [employer] Allergies No known active allergies Medications * [...] Comments Blood Pressure 90/56 05/01/2011 8:32 AM CAR CONSTRUCTION SUPERINTENDENT Pulse 78 05/01/2011 8:32 AM CAR CONSTRUCTION SUPERINTENDENT Temperature - - Respiratory Rate 18 05/01/2011 8:32 AM CAR CONSTRUCTION SUPERINTENDENT Oxygen Saturation - - Inhaled Oxygen Concentration - - Weight 41.4 kg (91 lb 4.8 oz) 05/01/2011 8:32 AM CAR CONSTRUCTION SUPERINTENDENT Height 131.8 cm (4' 3.89 ) 05/01/2011 8:32 AM CS T Body Mass Index 23.84 05/01/2011 8:32 AM CAR CONSTRUCTION SUPERINTENDENT Plan of Treatment Health Maintenance Due Date [...]
--- OUTSIDE RECORDS SUMMARY | 2024-06-04 05:02 | XMS_ITS | Referral Summary ---
Author Organization [facility] Address [address] [place] [address] Care Team Providers Care Social Science Research Assistant Name Role Phone Unavailable Primary Care Provider Unavailabl e Source Comments [facility],non-owned Affiliates and Associated Physician Practices is amultiple site organization consisting of ambulatory clinics and hospital sitesin [place], [place] and [place]. This disclosure is being madepursuant to the Care Everywhere program and may not contain all information available regarding this patient. Last updated 18.[facility] The Local Allergies No known active allergies Medications * [...] Comments Blood Pressure 90/56 05/01/2011 8:32 AM AUDIT PARTNER Pulse 78 05/01/2011 8:32 AM AUDIT PARTNER Temperature - - Respiratory Rate 18 05/01/2011 8:32 AM AUDIT PARTNER Oxygen Saturation - - Inhaled Oxygen Concentration - - Weight 41.4 kg (91 lb 4.8 oz) 05/01/2011 8:32 AM AUDIT PARTNER Height 131.8 cm (4' 3.89 ) 05/01/2011 8:32 AM CS T Body Mass Index 23.84 05/01/2011 8:32 AM AUDIT PARTNER Plan of Treatment Not on file
--- OUTSIDE RECORDS SUMMARY | 2024-06-04 05:02 | XMS_ITS | Encounter Summary ---
Author Organization [facility] Address [address] [place] [address] Care Team Providers Care Power Plant Installer Name Role Phone Govind Christopher MD Primary Care Provider Encounter Details Date Type Department Care Team (Late st Contact Info) Description 01/20/2022 Abstract [facility] Internal Medicine [address] [address] Govind Christopher MD [address] [place] [address] Social History Tobacco Use Types Packs/Day Years Used Date Smoking Tobacco: Never Smokeless Tobacco: Never Alcohol Use Standard Drinks/Week Comments No 0 (1 standard drink = 0.6 oz pur e alcohol) Sex and Gender Information Value Date Recorded Sex Assigned at Not on file Legal Sex Male 4:34 AM 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 EQUIPMENT 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 Gender Identity Not on file Sexual Orientation Not on file documented as of this encounter Plan of Treatment Upcoming Encounters Date Type Department Care Team (Late st Contact Info) Description 09/09/2024 2:00 PM CDT Office Visit [facility] Internal Medicine [facility] [address] [place], [place] [address] [place] [address] Govind Christopher MD [address] [place] [address] documented as of this encounter Visit Diagnoses Not on filedocumented in this encounter Additional Health Concerns Assessment Noted Time PHQ-9 Depression Total Score: 1 11/09/19 22 10:39 AM CDT documented as of this encounter Care Teams Power Plant Installer Relationship Specialty Start Date End Date Govind Christopher MD [address] [place] [address] PCP - General Internal Medicine 07/15/18 documented as of this encounter
--- OUTSIDE RECORDS SUMMARY | 2024-06-04 05:02 | XMS_ITS | Clinical Summary ---
Author Organization [facility] Address [address] [place] [address] Phone Care Team Providers Care Medical Office Scheduler Name Role Phone Govind Christopher MD Primary [...] Department Care Team Description 04/02/2024 Orders Only [facility] [address] [place] [address] Gila Jc MA Nephrolithiasis (Primary Dx) 04/02/2024 Orders Only [facility] [address] [place] [address] Jeremy Curry MD Nephrolithiasis (Primary Dx) from [...] Care Team (Late st Contact Info) Description 07/09/2024 11:20 AM CDT Office Visit [facility] [address] [place] [address] Jeremy Curry MD [address] [place], [place] [id number] Health Maintenance Due Date Last Done Comments Pneumococcal PPSV23 Highest Risk Adult (2 of 3 - PPSV23) 02/26/2019 03/13/2001, 2000, 2000, Additional history exists Influenza Vaccine (#1) 2023 03/07/2022 Procedures Procedure Name Priority Date/Time Associated Diagnosis Comments RENAL FUNCTION PANEL (RFP) Routine 05/08/2024 11:15 AM DE ALCOHOLIZER Nephrolithiasis LITHOLINK 24-HOUR URINE, [place] Routine 04/28/2024 6:45 AM DE ALCOHOLIZER Nephrolithiasis from Last 3 Months Results * Renal Function Panel (RFP) (05/08/2024 11:15 AM DE ALCOHOLIZER) Glucose, Serum/Plasma 99 65 - 99 mg/dL [facility] Comment: Fasting reference interval Urea nitrogen, Serum/Plasma (BUN) 14 7 - 25 mg/dL [facility]) Creatinine, Serum/Plasma 0.83 0.60 - 1.24 mg/dL [facility] ([facility]) Estimated Glomerular Filtration Rate (eGFR) 125 > OR = 60 mL/min/1.[address] [facility]) Urea nitrogen/Creati nine, Serum/Plasma SEE NOTE: 6 - 22 (calc) [facility] ([facility]) Comment: Not Reported: BUN and Creatinine are within reference range. Sodium, Serum/Plasma 140 135 - 146 mmol/L [facility] ([facility]) Potassium, Serum/Plasma 4.3 3.5 - 5.3 mmol/L [facility] ([facility]) Chloride, Serum/Plasma 103 98 - 110 mmol/L [facility] ([facility]) Carbon dioxide CO2), total, Serum/Plasma 27 20 - 32 mmol/L [facility] ([facility]) Calcium, Serum/Plasma 9.8 8.6 - 10.3 mg/dL [facility] (ST) Phosphate, Serum/Plasma 3.1 2.5 - 4.5 mg/dL [facility] ([facility]) Albumin, Serum/Plasma 4.9 3.6 - 5.1 g/dL [facility]) Blood (Blood, Venous) 05/08/2024 11:15 AM DE ALCOHOLIZER 05/08/2024 11:16 AM DE ALCOHOLIZER Narrative Resulting Agency Comment Performing Organization Information: Site ID: Name: [id number] Address: [address] [place] [address] Director: Mila Diaz Jeremy Curry MD LAB BLOOD ORDERABLES [facility] * (ABNORMAL) Litholink 24-Hour Urine Panel (04/28/2024 6:45 AM DE ALCOHOLIZER) CYSTINE, URINE, QUALITATIVE CANCELED [facility] 1 Comment: [...] suggesting a discrepancy in the collection process. The urine creatinine result was verified by repeat analysis. CREATININE / KG BODY WEIGHT 20.7 11.9 - 24.4 mg/24 hr/kg [facility] 1 Calcium/Kg Body Weight 3.0 <4.0 mg/24 hr/kg [facility] 1 RATIO CALCIUM TO CREATININE UA 147 34 - 196 mg/g creat [facility] 1 COMMENT Note [facility] 1 PDF . [facility] 1 04/28/2024 6:45 AM DE ALCOHOLIZER 05/01/2024 11:00 PM DE ALCOHOLIZER Narrative [facility] - 05/03/2024 2:07 AM DE ALCOHOLIZER Performed at: [address] [id number] Slot Machine Mechanic: Eliza Leon PhD, Phone: [phone] Jeremy Curry MD LAB URINE ORDERABLES [facility] 1 from Last 3 Months Care Teams Medical Office Scheduler Relationship Specialty Start Date End Date Govind Christopher MD [address] [place], [place] [address] [place] [address] PCP - General Internal Medicine 08/05/19
--- OUTSIDE RECORDS SUMMARY | 2024-06-04 05:02 | XMS_ITS | Encounter Summary ---
Author Organization [facility] Address [address] [place] [address] Care Team Providers Care Insurance Agents Supervisor Name Role Phone Govind Christopher MD Primary Care Provider [phone] Encounter Details Date Type Department Care Team (Late st Contact Info) Description 2000 Outpatient Historical [facility] [place] [facility] 2002 [address] [facility] [facility] [address] [address] Bright Joy MD [address] [place] [address] [address] [address] Social History Tobacco Use Types Packs/Day Years Used Date Smoking Tobacco: Never Assessed Sex and Gender Information Value Date Recorded Sex Assigned at Not on file Legal Sex Male 4:34 AM JOB CHECKER Gender Identity Not on file Sexual Orientation Not on file documented as of this encounter Plan of Treatment Upcoming Encounters Date Type Department Care Team (Late st Contact Info) Description 09/09/2024 2:00 PM CDT Office Visit [facility] [place] Internal Medicine [facility] [address] [address] Govind Christopher MD [address] [place] [address] [address] [place] [address] documented as of this encounter Visit Diagnoses Not on filedocumented in this encounter Care Teams Insurance Agents Supervisor Relationship Specialty Start Date End Date Govind Christopher MD [address] [place] [address] PCP - General Internal Medicine 07/15/18 documented as of this encounter
--- OUTSIDE RECORDS SUMMARY | 2024-06-04 05:02 | XMS_ITS | Encounter Summary ---
Author Organization [facility] Address [address] [facility] Attn: [place] [address] Care Team Providers Care Mud Analysis Supervisor Name Role Phone Govind Christopher MD Primary Care Provider Encounter Details Date Type Department Care Team (Late st Contact Info) Description 2000 Inpatient Historical Shannon Orellana MD NO ADDRESS ON FILE Yadira Pinzon MD [address] [place] [address] [place] [address] Twin, mate liveborn, born in hospital, delivered by delivery (Primary Dx) Social History Tobacco Use Types Packs/Day Years Used Date Smoking Tobacco: Never Assessed Sex and Gender Information Value Date Recorded Sex Assigned at Not on file Legal 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 Gender Identity Not on file Sexual Orientation Not on file documented as of this encounter Plan of Treatment Upcoming Encounters Date Type Department Care Team (Late st Contact Info) Description 09/09/2024 2:00 PM CDT Office Visit [facility] Internal Medicine Medical [place] [facility] [address] [facility] [address] [place] [address] Govind Christopher MD [address] [place] [address] [address] [place] [address] documented as of this encounter Visit Diagnoses Diagnosis Twin, mate liveborn, born in hospital, delivered by delivery- Primary documented in this encounter Care Teams Mud Analysis Supervisor Relationship Specialty Start Date End Date Govind Christopher MD [address] [place] [address] PCP - General Internal Medicine 07/15/18 documented as of this encounter
--- OUTSIDE RECORDS SUMMARY | 2024-06-04 05:02 | XMS_ITS | Encounter Summary ---
Author Organization [facility] Address [address] [place] [address] Care Team Providers Care Vegetable Canner Name Role Phone Govind Christopher MD Primary Care Provider [phone] Encounter Details Date Type Department Care Team (Late st Contact Info) Description 2000 Outpatient Historical [facility] Pediatrics - [facility] [address] [facility] [address] [address] Bright Joy MD [address] [place] [address] [address] [address] Social History Tobacco Use Types Packs/Day Years Used Date Smoking Tobacco: Never Assessed Sex and Gender Information Value Date Recorded Sex Assigned at Not on file Legal Sex Male 4:34 AM PREPRESS SPECIALIST Gender Identity Not on file Sexual Orientation Not on file documented as of this encounter Plan of Treatment Upcoming Encounters Date Type Department Care Team (Late st Contact Info) Description 09/09/2024 2:00 PM CDT Office Visit [facility] Internal Medicine [facility] A [facility] [address] [facility] [address] [address] [address] Govind Christopher MD [address] [place] [address] [address] [place] [address] documented as of this encounter Visit Diagnoses Not on filedocumented in this encounter Care Teams Vegetable Canner Relationship Specialty Start Date End Date Govind Christopher MD [address] [place] [address] PCP - General Internal Medicine 07/15/18 documented as of this encounter
--- OUTSIDE RECORDS SUMMARY | 2024-06-04 05:02 | XMS_ITS | Referral Summary ---
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 Cohen Insurance ANTHEM ACCESS CHOICE ANTHEM ACCESS CHOICE ANTHEM ACCESS CHOICE ANTH ACCESS CHOICE Advance Directives For more information, please contact: [phone] * Full Code (Latest Code Status on File) Date Activated Date Inactivated Comments 07/15/2019 4:22 PM 07/17/2019 10:05 PM Care Teams Timber Mill Worker Relationship Specialty Start Date End Date Govind Christopher MD PCP - General Critical Care Med 11/23/21 Unknown, Notinfile 11/23/21 Aidan Mayanrd MD Consulting Physician Urology 07/17/19
--- OUTSIDE RECORDS SUMMARY | 2024-06-04 05:02 | XMS_ITS | Encounter Summary ---
Author Organization [facility] Address [address] [place] [address] Care Team Providers Care Ortho Tech Name Role Phone Govind Christopher MD Primary Care Provider [phone] Encounter Details Date Type Department Care Team (Late st Contact Info) Description 2000 Outpatient Historical [facility] Pediatrics - Medical [place] [address] [facility] [address] [address] Shannon Orellana MD NO ADDRESS ON FILE Social History Tobacco Use Types Packs/Day Years Used Date Smoking Tobacco: Never Assessed Sex and Gender Information Value Date Recorded Sex Assigned at Not on file Legal Sex Male 4:34 AM HAND WOODWORKING 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 Gender Identity Not on file Sexual Orientation Not on file documented as of this encounter Plan of Treatment Upcoming Encounters Date Type Department Care Team (Late st Contact Info) Description 09/09/2024 2:00 PM CDT Office Visit [facility] Internal Medicine Medical [place] A [facility] [address] [facility] [address] [address] Govind Christopher MD [address] [facility] [address] [address] documented as of this encounter Visit Diagnoses Not on filedocumented in this encounter Care Teams Ortho Tech Relationship Specialty Start Date End Date Govind Christopher MD [address] [place] [address] PCP - General Internal Medicine 07/15/18 documented as of this encounter
--- OUTSIDE RECORDS SUMMARY | 2024-06-04 05:02 | XMS_ITS | Continuity of Care Document ---
Author Organization [facility] Address [address] [place] [address] Phone Care Team Providers Care Education Specialist Name Role Phone Martha Jacques Unavailable Unavailab le Allergies, Adverse Reactions, Alerts Substance Reaction Status Criticality Penicillins Active No Information Medications Medication Instructions Dosage Effective Dates (start - stop) Status Comments sertraline 100 mg tablet take 1 tablet by oral route every day 100 MG - Active Linzess 72 mcg capsule TAKE 1 CAPSULE [...] route every day 10 MG - Active Focalin 10 mg tablet take 1 tablet by oral route 2 times every day at least 4 hours apart 10 MG - Active sertraline 50 mg tablet take 1 tablet by oral route every day 50 MG - No Longer Active Procedures Procedure Date OFFICE [id number] BODY MASS INDEX DOCD SYST BP LT 130 MM HG DIAST BP 80-89 MM HG OFFICE [id number] BODY MASS INDEX DOCD SYST BP GE 130 - 139MM HG DIAST BP 80-89 MM HG OFFICE [id number] BODY MASS INDEX DOCD SYST BP LT 130 MM HG DIAST BP < 80 MM HG TISSUE EXAM BY PATHOLOGIST UPPER GI ENDOSCOPY BIOPSY TISSUE EXAM BY PATHOLOGIST COLONOSCOPY AND BIOPSY OFFICE [id number] BODY MASS INDEX DOCD SYST BP LT 130 MM HG DIAST BP 80-89 MM HG Advance Directives Directive Yes / No Effective Date File Name No Information Encounters Encounter Description Practice Location Reason(s) For Visit Diagnoses Date Provider Providers Copied on Encounter OFFICE [id number] [facility], [address], [place], [place], [id number] , tel: [phone] [facility] Follow up (chief complaint) Chronic constipationGastro paresis 5 Janes Thomas. [address] [place] [address], [id number] , . tel: [phone] Referring Provider: Ean [address] [facility], [place], [address]. tel:[phone] [facility], [address], [place], [place], [id number] , [place] tel: [phone] [facility] No Information 5 Mary Lou Muñoz. [address] [place] [address], [id number] , . tel: [phone] OFFICE [id number]-[id number] [facility], [address], [place], [place], [id number] , [place] tel: [phone] [facility] GI problems (chief complaint) GastroparesisChron ic constipationLower abdominal pain 4 Mary Lou Muñoz. [address] [place] [address], [id number] , . tel:[phone] Referring Provider: Govind Christopher [address] [facility], [place], [address]. tel:[phone] OFFICE EYDJA-XHE-MC [facility], [address], [place], [place], [id number] , tel: [phone] [facility] GI problems (chief complaint) Chronic nauseaWeight lossChronic constipationGastro paresis 3 Mary Lou Toni. [address] [place] [address], [id number] , . tel: [phone] Referring Provider: Martha Marrero, [address] [place] [address], [address] . tel:[phone] [facility], [address], [place], [place], [id number] , [place] tel: [phone] [facility] No Information 3 Mary Lou Toni. [address] [place] [address], [id number] , . tel: [phone] Referring Provider: Aquilino Paz S [employer] [address] [facility], [place], [address]. tel:[phone] [facility], [address], [place], [place], [id number] , [place] tel: [phone] [facility] No Information 3 Mary Lou Toni. [address] [place] [address], [id number] , [place]. tel:[phone] Referring Provider: Aquilino Paz S [employer] [address] [facility], [place], [address]. tel:[phone] [facility], [address], [place], [place], [id number] , [place] tel: [phone] [facility] No Information 3 Mary Lou Toni. [address] [place] [address], [id number] , . tel:[phone] Referring Provider: Aquilino Paz [address] [employer] [address] [facility], [place], [address]. tel:[phone] [facility], [address], [place], [place], [id number] , [place] tel: [phone] [facility] No Information 3 Mary Lou Muñoz. [address] [place] [address] B, [place], [place], [id number] , . tel:[phone] Referring Provider: Toni Barreto, [address] [facility] [address], [place], [address] . tel:[phone] [facility], [address], [place], [place], [id number] , [place] tel:[phone] [facility] GI problems-- Diarrhea (chief complaint) Nausea vomiting and diarrheaDiarrhea, unspecifiedWeight lossLower abdominal pain 3 Mary Lou Muñoz. [address] [place] [address] B, [place], [place], [id number] , . tel:[phone] Referring Provider: Govind Christopher, [address] [facility] [address] [facility], [place], [address]. tel:[phone] Family History Family Member Type Diagnosis Age At Onset No Information Payers Payer name Insurance type Covered green party ID Authoriza eduardo(s) [facility] ACCESS CHOICE [id number] Social History Type Description Quantity Date Captured Comments Alcohol Use Details No Caffeine Use Details tea Tobacco Use Status Current non-smoker 25 Smoking Status Never smoker Sex Male Vital Signs Date / Time: Height Weight BMI Pulse Rate Blood Pressure Temperature Respiratory Rate Body Surface Area Head Circumference Head Circ. Percentile Wt./Srinath. Percentile BMI percentile Pulse Ox Inhaled Ox 1:33 PM 63.00 in 100.244 kg (221.00 lbs) 39.1 5 kg/m eter (2) 105 /min 112/83 mm[Hg] 97.00 F 18 /min Chief Complaint And Reason For Visit From encounter dated 05/27/2024 13:30'. Follow up (chief complaint). Description: 24 year old male that presents for follow up. He is currently on Linzess daily-he has regular normal BMs when taking. Has nausea when feeling constipation. Denies any vomiting. Denies diarrhea, denies blood in stool. Finishing college in August Reason For Referral Reason For Referral No Information Plan Of Treatment Date Type Action Status Referral Ordered: US Gallbladder Appointment date/timeframe: 12/07/2022 ordered History Of Present Illness Encounter Date Complaint History Of Prese nt Illness Follow up 24 year old male that presents for follow up. He is currently on Linzess daily-he has regular normal BMs when taking. Has nausea when feeling constipation. Denies any vomiting. Denies diarrhea, denies blood in stool. Finishing college in August GI problems Stopped Reglan d ue to [...] Protein bars and shakes make him constipated. Nuckolls 1 and straining. GI problems--Diarrhea Over a mon of diarrhea. Has also been having episodes of vomiting. has been having chronic nausea. In past would go once every other day. 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 Patient Care Teams Name Effective Dates (start - stop) Status Members No Information
--- OUTSIDE RECORDS SUMMARY | 2024-06-04 05:02 | XMS_ITS | Patient Health Summary ---
Author Organization [facility] [employer] Address [address] [place] [address] Care Team Providers Care Operations Director Name Role Phone Unavailable Primary Care Provider Unavailabl e Note from [facility],non-owned Affiliates and Associated Physician Practices is amultiple site organization consisting of ambulatory clinics and hospital sitesin [place], [place] and [place]. This disclosure is being madepursuant to the Care Everywhere program and may not contain all information available regarding this patient. Last updated 18.[facility] [employer] Allergies No known active allergies Medications * [...] Comments Blood Pressure 90/56 05/01/2011 8:32 AM REVENUE DIRECTOR Pulse 78 05/01/2011 8:32 AM REVENUE DIRECTOR Temperature - - Respiratory Rate 18 05/01/2011 8:32 AM REVENUE DIRECTOR Oxygen Saturation - - Inhaled Oxygen Concentration - - Weight 41.4 kg (91 lb 4.8 oz) 05/01/2011 8:32 AM REVENUE DIRECTOR Height 131.8 cm (4' 3.89 ) 05/01/2011 8:32 AM CS T Body Mass Index 23.84 05/01/2011 8:32 AM REVENUE DIRECTOR Procedures * LAB RESULTS ORDER(Performed 06/06/2011) * XR BONE AGE STUDY(Performed 05/01/2011) Performed for Short stature Results * LAB RESULTS ORDER (06/06/2011 4:04 PM REVENUE DIRECTOR) Narrative Transcriptions Document, Scanned - 06/06/2011 4:04 PM CST Scanned Document LAB - THERAPEUTIC DR MAYERS MONITORING ORDERABLES * XR BONE AGE HAND AND WRIST (05/01/2011 9:39 AM REVENUE DIRECTOR) Anatomical Region Laterality Modality Upper Extremity, Wrist / Hand Ra diographic Imaging 05/01/2011 10:4 2 AM REVENUE DIRECTOR Narrative 05/01/2011 11:32 AM REVENUE DIRECTOR EXAM: Bone Age Hand, male FINDINGS: Chronologic age: 11 years 2 months. Standard deviation: 10.5 months. Bone age: 10 years. Method: Greulich and Basim. Last examination: None. Skeletal maturation: Normal. Colton Mayers MD Procedure Note Juan Chino A - 05/01/2011 EXAM: Bone Age Hand, male FINDINGS: Chronologic age: 11 years 2 months. Standard deviation: 10.5 months. Bone age: 10 years. Method: Greulich and Basim. Last examination: None. Skeletal maturation: Normal. Colton Mayers MD Ti Mcgill MD DIAGNOSTIC IMAGING O POOL
--- OUTSIDE RECORDS SUMMARY | 2024-06-04 05:02 | XMS_ITS | Encounter Summary ---
Author Organization [facility] Address [address] [place] [address] Care Team Providers Care Data Compiler Name Role Phone Unknown, Notinfile Primary Care Provider Unavail able Govind Christopher MD Primary Care Provider [phone] Unknown, Notinfile Unavailable Unavailable Aidan Maynard MD Unavailable [phone] Encounter Details Date Type Department Care Team (Late st Contact Info) Description 07/23/2019 Telephone [facility] - Interventional Radiology [address] [place] [address] Virginia Tovar RN Social History Tobacco Use Types Packs/Day Years Used Date Smoking Tobacco: Never Smokeless Tobacco: Never Alcohol Use Standard Drinks/Week Comments Yes 0 (1 standard drink = 0.6 oz pur e alcohol) rare Sex and Gender Information Value Date Recorded Sex Assigned at Not on file 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
[2024-06-04] MEDS: ONDANSETRON INJ 4 MG/2 ML VIAL IV PUSH (05:37)
[2024-06-04] MEDS: HYDROmorphone HCL INJ (*CRX) 1 MG/ML SYR 0.5 MG IV PUSH (05:38)
[2024-06-04] MEDS: SODIUM CHLORIDE 0.9% IV 1,000 ML 999 ML IV CONT (05:38)
[2024-06-04 05:47] LABS: Basophils Percent Auto 0.3 % (0.2-1.2); Eosinophils Absolute Auto 0.1 K/mm3 (0-0.3); Eosinophils Percent Auto 0.8 % (0-4.4); Hematocrit 42.7 % (42.0-52.0); Hemoglobin 14.2 g/dL (14.0-18.0); Immature Granulocyte Absolute 0.05 K/mm3 (0.00-0.031); Immature Granulocyte Percent A 0.4 % (0-0.5); Lymphocytes Absolute Auto 2.03 K/mm3 (0.9-3.2); Lymphocytes Percent Auto 16.9 % (18.3-44.2); Mean Corpuscular HGB Conc 33.3 g/dl (32-36); Mean Corpuscular Hemoglobin 30.1 pg (26-34); Mean Corpuscular Volume 90.7 fl (80-100); Mean Platelet Volume 10.1 fl (7.4-10.4); Monocytes Absolute Auto 0.5 K/mm3 (0.1-0.6); Neutrophils Absolute Auto 9.3 K/mm3 (1.3-6.7); Neutrophils Percent Auto 77.6 % (45.5-73.1); Platelet Count Result 298 k/mm3 (150-375); Red Blood Count 4.71 M/mm3 (4.6-6.20); Red Cell Distribution Width 12.2 % (11.5-14.5)
[2024-06-04 05:54] LABS: Add Urine Microscopic? YES; Appearance Urine Turbid (Clear); Bilirubin Urine 1+ (Negative); Blood Urine 3+ (Negative); Glucose Urine UA Negative (Negative); Ketones Urine Negative (Negative); Leukocyte Esterase Ur 1+ LEU/UL (Negative); Nitrate Urine Negative (Negative); Non Pathogenic Casts 0-2; Protein Urine 2+ mg/dL (Negative); RBC Urine >100 /hpf (0-2); Specific Grav Ur 1.023 (1.001-1.035); Squamous Epithelial Cell Urine None Seen /hpf (Few); WBC Urine 21-50 /hpf (0-3); pH Urine 5.5 (5.0-9.0)
[2024-06-04 05:57] LABS: Alanine Aminotransferase 58 U/L (6-50); Albumin Level 4.6 g/dL (3.5-5.1); Alkaline Phosphatase 92 U/L (38-126); Anion Gap 13 mmol/L (4-12); Aspartate Amino Transferase 36 U/L (17-59); Bilirubin,Total 0.6 mg/dL (0.2-1.3); Blood Urea Nitrogen 19 mg/dL (9-20); Calcium 9.8 mg/dL (8.4-10.2); Carbon Dioxide 25 mmol/L (22-30); Chloride 102 mmol/L (98-107); Estimated CRCL calculation 118 ml/min; Estimated Glomerular Filt Rate > 60; Glucose 134 mg/dL (65-110); Potassium 3.8 mmol/L (3.4-5.0); Sodium 140 mmol/L (137-145)
[2024-06-04 05:59] LABS: Color Urine Red (Yellow)
--- NOTE | 2024-06-04 06:12 | ED.GENADULT ---
HPI - General Adult General Chief complaint: Urogenital-Male Stated complaint: im having kidney stone pain Time Seen by Provider: 06/04/24 05:07 History of Present Illness HPI narrative: This is a 24 year presenting ED with chief complaint of left flank pain. Sharp pain left side is nonradiating. Feels like previous kidney stones. Patient says that feels warm and has been sweaty but denies fevers. Denies any pain on urination. Urine is dark. Patient has required multiple urologic procedures in the past for kidney stones. Related Data Home Medications ?Medication ?Instructions ?Recorded ?Confirmed ?Last Taken ?Type alprazolam 0.25 mg tablet 0.25 mg PO PRN PRN Anxiety 12/02/20 12/22/22 02/09/21 History sertraline 50 mg tablet 50 mg PO HS 12/02/20 12/22/22 02/10/21 History acetaminophen 500 mg tablet 1,000 mg PO Q4-6H PRN PAIN 12/07/20 12/22/22 12/06/20 History hydrochlorothiazide 12.5 mg tablet 12.5 mg PO BID 11/07/21 12/22/22 Unknown History tamsulosin 0.4 mg capsule 0.4 mg PO DAILY 11/07/21 12/22/22 Unknown History atorvastatin 10 mg tablet 10 mg PO DAILY 12/21/22 12/22/22 Unknown History potassium citrate 15 mEq (1,620 15 meq PO BID 12/21/22 12/22/22 Unknown History mg) tablet,extended release linaclotide 72 mcg capsule 72 mcg PO DAILY 03/06/23 Unknown History (Linzess) ondansetron 4 mg disintegrating 4 mg PO Q8H 03/06/23 Unknown History tablet Allergies Allergy/AdvReac Type Severity Reaction Status Date / Time amoxicillin (From Augmentin) AdvReac Mild Rash Verified 03/06/23 15:03 clavulanic acid (From AdvReac Mild Rash Verified 03/06/23 15:03 Augmentin) PMFSH Past Medical History Medical History Hyperlipidemia Anxiety Obesity Kidney stones ADHD Asthma Surgical History Surgical History No significant past surgical history Social History Social History Smoking status: Never smoker Alcohol intake: current Drinks per week: 1 Alcohol use details: 2-4/MONTH Substance use: current Substance use type: marijuana Last use: 12/20/22 Living arrangements: with family Spiritual care concerns: No Exam Narrative: APPEARANCE: No apparent distress. Head: atraumatic. EYES: EOMI, NOSE: Atraumatic NECK: Trachea midline RESPIRATORY: No increased rate of breathing CTAB CARDIOVASCULAR: RRR, ABDOMINAL: Soft nontender, left CVA tenderness MUSCULOSKELETAl: No obvious deformities NEURO: Alert. Moving 4/4 extremities SKIN:: Warm to touch, clammy PSYCHIATRIC: Normal affect Course Vital Signs Vital signs: Vital Signs Temperature 98.3 F 06/04/24 05:04 Pulse Rate 82 06/04/24 05:04 Respiratory Rate 20 06/04/24 05:04 Blood Pressure 148/103 H 06/04/24 05:04 Pulse Oximetry 98 06/04/24 05:04 Oxygen Delivery Room Air 06/04/24 05:04 Temperature 98.7 F 06/04/24 06:12 Pulse Rate 83 06/04/24 06:12 Respiratory Rate 17 06/04/24 06:12 Blood Pressure 176/104 H 06/04/24 06:12 Pulse Oximetry 98 06/04/24 06:12 Oxygen Delivery Room Air 06/04/24 05:04 Medical Decision Making [facility] Narrative Medical decision making narrative: -Course: 24-year-old male presenting with left flank pain. CT showed 7 mm proximal ureteral stone. White count is 12. UA has 21-50 white blood cells, >100rbs, + Leuk est, +2 bacteria Patient has been having subjective fevers and is warm to touch/ clammy. Afebrile an oral temperature. Urology was consulted. Further management per their care. -DDX includes but is not limited to: Kidney stone, septic stone, muscle spasm Vital Signs Vital Signs: Vital Signs Temperature 98.3 F 06/04/24 05:04 Pulse Rate 82 06/04/24 05:04 Respiratory Rate 20 06/04/24 05:04 Blood Pressure 148/103 H 06/04/24 05:04 Pulse Oximetry 98 06/04/24 05:04 Oxygen Delivery Room Air 06/04/24 05:04 Temperature 98.7 F 06/04/24 06:12 Pulse Rate 83 06/04/24 06:12 Respiratory Rate 17 06/04/24 06:12 Blood Pressure 176/104 H 06/04/24 06:12 Pulse Oximetry 98 06/04/24 06:12 Oxygen Delivery Room Air 06/04/24 05:04 Lab Data 06/04/24 05:36 06/04/24 05:36 Labs: Lab Results 06/04/24 Range/Units 05:36 WBC 12.0 H (4.5-10.0) K/mm3 RBC 4.71 (4.6-6.20) M/mm3 Hgb 14.2 (14.0-18.0) g/dL Hct 42.7 (42.0-52.0) % MCV 90.7 (80-100) fl MCH 30.1 (26-34) pg MCHC 33.3 (32-36) g/dl RDW 12.2 (11.5-14.5) % Plt Count 298 (150-375) k/mm3 MPV 10.1 (7.4-10.4) fl Immature Gran % (Auto) 0.4 (0-0.5) % Neut % (Auto) 77.6 H (45.5-73.1) % Lymph % (Auto) 16.9 L (18.3-44.2) % [place] % (Auto) 4.0 (2.6-8.5) % Eos % (Auto) 0.8 (0-4.4) % Baso % (Auto) 0.3 (0.2-1.2) % Lymph # (Auto) 2.03 (0.9-3.2) K/mm3 [place] # (Auto) 0.5 (0.1-0.6) K/mm3 Eos # (Auto) 0.1 (0-0.3) K/mm3 Baso # (Auto) 0.0 (0.0-0.1) K/mm3 Abs Immat Gran (auto) 0.05 H (0.00-0.031) K/mm3 Absolute Neuts (auto) 9.3 H (1.3-6.7) K/mm3 Absolute Nucleated RBC 0.000 (0.0-0.012) K/mm3 Nucleated RBC % 0.0 (0.0-0.2) % Sodium 140 (137-145) mmol/L Potassium 3.8 (3.4-5.0) mmol/L Chloride 102 (98-107) mmol/L Carbon Dioxide 25 (22-30) mmol/L Anion Gap 13 H (4-12) mmol/L BUN 19 (9-20) mg/dL Creatinine 0.90 (0.7-1.3) mg/dL Estim Creat Clear Calc 118 ml/min Estimated GFR > 60 (59 - ) Glucose 134 H (65-110) mg/dL Calcium 9.8 (8.4-10.2) mg/dL Total Bilirubin 0.6 (0.2-1.3) mg/dL AST 36 (17-59) U/L ALT 58 H (6-50) U/L Alkaline Phosphatase 92 (38-126) U/L Total Protein 8.0 (6.3-8.2) g/dL Albumin 4.6 (3.5-5.1) g/dL Urine Color Red H (Yellow) Urine Appearance Turbid H (Clear) Urine pH 5.5 (5.0-9.0) Ur Specific [place] 1.023 (1.001-1.035) Urine Protein 2+ H (Negative) mg/dL Urine Glucose (UA) Negative (Negative) mg/dL Urine Ketones Negative (Negative) mg/dL Ur Blood (Man) 3+ H (Negative) Urine Nitrate Negative (Negative) Urine Bilirubin 1+ H (Negative) Urine Urobilinogen 1.0 (<2.0) mg/dL Leukocyte Esterase Rfl 1+ H (Negative) LOURDES/UL Urine RBC >100 H (0-2) /hpf Urine WBC 21-50 H (0-3) /hpf Ur Squamous Epith Cells None seen (Few) /hpf Urine Bacteria 2+ /hpf Urine Casts 0-2 Discharge Plan Discharge Clinical Impression: Left renal stone Patient Disposition: Still a Patient Condition: Stable Patient Language: Albanian Prescriptions: No Action Linzess 72 mcg capsule 72 mcg PO DAILY ondansetron 4 mg tablet,disintegrating 4 mg PO Q8H atorvastatin 10 mg tablet 10 mg PO DAILY potassium citrate 15 mEq tablet extended release 15 meq PO BID sertraline 50 mg tablet 50 mg PO HS alprazolam 0.25 mg tablet 0.25 mg PO PRN PRN (Reason: Anxiety) acetaminophen 500 mg Tablet 1,000 mg PO Q4-6H PRN (Reason: PAIN) tamsulosin 0.4 mg Capsule 0.4 mg PO DAILY hydrochlorothiazide 12.5 mg tablet 12.5 mg PO BID cyclobenzaprine 5 mg tablet 5 mg PO TID PRN (Reason: muscle spasm) Qty: 20 0RF naproxen sodium [Anaprox DS] 550 mg tablet 550 mg PO Q12H PRN (Reason: pain) Qty: 14 0RF Follow-up/Referrals: PHYSICIAN NOT ON STAFF,NONSTAFF [Primary Care Provider] -
[2024-06-04 06:16] LABS: Bacteria Urine 2+ /hpf
--- OUTSIDE RECORDS SUMMARY | 2024-06-04 06:46 | XMS_ITS | Encounter Summary ---
Author Organization [facility] Address [address] [place] [address] Care Team Providers Care Style Advisor Name Role Phone Govind Christopher MD Primary Care Provider [phone] Encounter Details Date Type Department Care Team (Late st Contact Info) Description 2000 Outpatient Historical [facility] Pediatrics - Medical [place] [address] [address] Shannon Orellana MD NO ADDRESS ON FILE Social History Tobacco Use Types Packs/Day Years Used Date Smoking Tobacco: Never Assessed Sex and Gender Information Value Date Recorded Sex Assigned at Not on file 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 Gender Identity Not on file Sexual Orientation Not on file documented as of this encounter Plan of Treatment Upcoming Encounters Date Type Department Care Team (Late st Contact Info) Description 09/09/2024 2:00 PM CDT Office Visit [facility] Internal Medicine Medical [place] [address] [address] Govind Christopher MD [address] [address] documented as of this encounter Visit Diagnoses Not on filedocumented in this encounter Care Teams Style Advisor Relationship Specialty Start Date End Date Govind Christopher MD [address] [place] [address] PCP - General Internal Medicine 07/15/18 documented as of this encounter
--- OUTSIDE RECORDS SUMMARY | 2024-06-04 06:46 | XMS_ITS | Encounter Summary ---
Author Organization [facility] Address [address] Attn: [place] [address] Care Team Providers Care Senior Graduate Advisor Name Role Phone Govind Christopher MD Primary Care Provider [phone] Encounter Details Date Type Department Care Team (Late st Contact Info) Description 2000 Inpatient Historical Shannon Orellana MD NO ADDRESS ON FILE Yadira Pinzon MD [address] [place] [address] [place] [address] Twin, mate liveborn, born in hospital, delivered by delivery (Primary Dx) Social History Tobacco Use Types Packs/Day Years Used Date Smoking Tobacco: Never Assessed Sex and Gender Information Value Date Recorded Sex Assigned at Not on file 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 Gender Identity Not on file Sexual Orientation Not on file documented as of this encounter Plan of Treatment Upcoming Encounters Date Type Department Care Team (Late st Contact Info) Description 09/09/2024 2:00 PM CDT Office Visit [facility] Internal Medicine Medical [place] [facility] [address] [place] [address] Govind Christopher MD [address] [place] [address] [address] [place] [address] documented as of this encounter Visit Diagnoses Diagnosis Twin, mate liveborn, born in hospital, delivered by delivery- Primary documented in this encounter Care Teams Senior Graduate Advisor Relationship Specialty Start Date End Date Govind Christopher MD [address] [place] [address] PCP - General Internal Medicine 07/15/18 documented as of this encounter
--- OUTSIDE RECORDS SUMMARY | 2024-06-04 06:46 | XMS_ITS | Clinical Summary ---
Author Organization [facility] Address [address] [place] [address] Phone Care Team Providers Care Gate Supervisor Name Role Phone Govind Christopher MD Primary Care Provider [phone] Allergies Active Allergy Reactions Criticality Noted Date [...] Department Care Team Description 04/02/2024 Orders Only [facility] [address] [place] [address] Gila Jc MA Nephrolithiasis (Primary Dx) 04/02/2024 Orders Only [facility] [address] [place] [address] Jeremy Curry MD Nephrolithiasis (Primary Dx) from [...] Description 07/09/2024 11:20 AM CDT Office Visit [facility] [address] [place] [address] Jeremy Curry MD [address] [place], [place] [id number] Health Maintenance Due Date Last Done Comments Pneumococcal PPSV23 Highest Risk Adult (2 of 3 - PPSV23) 02/26/2019 03/13/2001, 2000, 2000, Additional history exists Influenza Vaccine (#1) 2023 03/07/2022 Procedures Procedure Name Priority Date/Time Associated Diagnosis Comments RENAL FUNCTION PANEL (RFP) Routine 05/08/2024 11:15 AM DIRECTOR PROCESS Nephrolithiasis LITHOLINK 24-HOUR URINE, [place] Routine 04/28/2024 6:45 AM DIRECTOR PROCESS Nephrolithiasis from Last 3 Months Results * Renal Function Panel (RFP) (05/08/2024 11:15 AM DIRECTOR PROCESS) Glucose, Serum/Plasma 99 65 - 99 mg/dL [facility] ([facility] [[email or web address] Comment: Fasting reference interval Urea nitrogen, Serum/Plasma (BUN) 14 7 - 25 mg/dL [facility] ([facility] [[email or web address] Creatinine, Serum/Plasma 0.83 0.60 - 1.24 mg/dL [facility] ([facility]) Estimated Glomerular Filtration Rate (eGFR) 125 > OR = 60 mL/min/1.7 3m2 [facility] ([facility] [[email or web address] Urea nitrogen/Creati nine, Serum/Plasma SEE NOTE: 6 - 22 (calc) [facility] ([facility]) Comment: Not Reported: BUN and Creatinine are within reference range. Sodium, Serum/Plasma 140 135 - 146 mmol/L [facility] ([facility]) Potassium, Serum/Plasma 4.3 3.5 - 5.3 mmol/L [facility] ([facility]) Chloride, Serum/Plasma 103 98 - 110 mmol/L [facility] ([facility]) Carbon dioxide CO2), total, Serum/Plasma 27 20 - 32 mmol/L [facility] ([facility]) Calcium, Serum/Plasma 9.8 8.6 - 10.3 mg/dL [facility] ([facility]) Phosphate, Serum/Plasma 3.1 2.5 - 4.5 mg/dL [facility] ([facility]) Albumin, Serum/Plasma 4.9 3.6 - 5.1 g/dL [facility] ([facility] [[email or web address] Blood (Blood, Venous) 05/08/2024 11:15 AM DIRECTOR PROCESS 05/08/2024 11:16 AM DIRECTOR PROCESS Narrative Resulting Agency Comment Performing Organization Information: Site ID: Name: [employer] [facility] Address: [address] [place] [address] Director: Mila Diaz Jeremy Curry MD LAB BLOOD ORDERABLES [facility] ([facility] [[email or web address] * (ABNORMAL) Litholink 24-Hour Urine Panel (04/28/2024 6:45 AM DIRECTOR PROCESS) CYSTINE, URINE, QUALITATIVE CANCELED [facility] 1 Comment: [...] PDF . [facility] 1 04/28/2024 6:45 AM DIRECTOR PROCESS 05/01/2024 11:00 PM DIRECTOR PROCESS Narrative [facility] - 05/03/2024 2:07 AM DIRECTOR PROCESS Performed at: [address] [id number] Metallographer: Eliza Leon PhD, Phone: [phone] Jeremy Curry MD LAB URINE ORDERABLES [facility] 1 from Last 3 Months Care Teams Gate Supervisor Relationship Specialty Start Date End Date Govind Christopher MD [address] [place], [place] [address] [place] [address] PCP - General Internal Medicine 08/05/19
--- OUTSIDE RECORDS SUMMARY | 2024-06-04 06:46 | XMS_ITS | Patient Health Summary ---
Author Organization [facility] Address [address] [place] [address] Care Team Providers Care .Net Architect Name Role Phone Unavailable Primary Care Provider Unavailabl e Note from [facility],non-owned Affiliates and Associated Physician Practices is amultiple site organization consisting of ambulatory clinics and hospital sitesin [place], [place], [place] and [place]. This disclosure is being madepursuant to the Care Everywhere program and may not contain all information available regarding this patient. Last updated 18.[facility] [employer] Allergies No known active allergies Medications * [...] Comments Blood Pressure 90/56 05/01/2011 8:32 AM SMALL MACHINE BINDERY OPERATOR Pulse 78 05/01/2011 8:32 AM SMALL MACHINE BINDERY OPERATOR Temperature - - Respiratory Rate 18 05/01/2011 8:32 AM SMALL MACHINE BINDERY OPERATOR Oxygen Saturation - - Inhaled Oxygen Concentration - - Weight 41.4 kg (91 lb 4.8 oz) 05/01/2011 8:32 AM SMALL MACHINE BINDERY OPERATOR Height 131.8 cm (4' 3.89 ) 05/01/2011 8:32 AM CS T Body Mass Index 23.84 05/01/2011 8:32 AM SMALL MACHINE BINDERY OPERATOR Procedures * LAB RESULTS ORDER(Performed 06/06/2011) * XR BONE AGE STUDY(Performed 05/01/2011) Performed for Short stature Results * LAB RESULTS ORDER (06/06/2011 4:04 PM SMALL MACHINE BINDERY OPERATOR) Narrative Transcriptions Document, Scanned - 06/06/2011 4:04 PM CST Scanned Document LAB - THERAPEUTIC DR MAYERS MONITORING ORDERABLES * XR BONE AGE HAND AND WRIST (05/01/2011 9:39 AM SMALL MACHINE BINDERY OPERATOR) Anatomical Region Laterality Modality Upper Extremity, Wrist / Hand Ra diographic Imaging 05/01/2011 10:4 2 AM SMALL MACHINE BINDERY OPERATOR Narrative 05/01/2011 11:32 AM SMALL MACHINE BINDERY OPERATOR EXAM: Bone Age Hand, male FINDINGS: Chronologic [...]
--- OUTSIDE RECORDS SUMMARY | 2024-06-04 06:46 | XMS_ITS | Clinical Summary ---
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 [place] [address] Health Maintenance Due Date Last [...] Completed 06/21/2015, 11/2014, 10/12/2014 Insurance HANSA PORTILLO [address] [employer] ACCESS CHOICE Care Teams Gas Regulator Repairer Relationship Specialty Start Date End Date Govind Christopher MD [address] [place] [address] PCP - General Internal Medicine 07/15/18
--- OUTSIDE RECORDS SUMMARY | 2024-06-04 06:46 | XMS_ITS | Clinical Summary ---
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 Cohen Insurance [employer] Search to Phone CHOICE [employer] ACCESS CHOICE ANTHEM ACCESS CHOICE Advance Directives For more information, please contact: [phone] * Full Code (Latest Code Status on File) Date Activated Date Inactivated Comments 07/15/2019 4:22 PM 07/17/2019 10:05 PM Care Teams Statistical Secretary Relationship Specialty Start Date End Date Govind Christopher MD PCP - General Critical Care Med 11/23/21 Unknown, Notinfile 11/23/21 Aidan Maynard MD Consulting Physician Urology 07/17/19
--- OUTSIDE RECORDS SUMMARY | 2024-06-04 06:46 | XMS_ITS | Encounter Summary ---
Author Organization [facility] Address [address] [place] [address] Care Team Providers Care Stripping Cutter And Winder Name Role Phone Unknown, Notinfile Primary Care Provider Unavail able Govind Christopher MD Primary Care Provider [phone] Unknown, Notinfile Unavailable Unavailable Aidan Maynard MD Unavailable [phone] Encounter Details Date Type Department Care Team (Late st Contact Info) Description 07/23/2019 Telephone [facility] - Interventional Radiology [address] [place] [address] Virginia Tovar RN Social History Tobacco Use Types Packs/Day Years Used Date Smoking Tobacco: Never Smokeless Tobacco: Never Alcohol Use Standard Drinks/Week Comments Yes 0 (1 standard drink = 0.6 oz pur e alcohol) rare Sex and Gender Information Value Date Recorded Sex Assigned at Not on file Legal 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
--- OUTSIDE RECORDS SUMMARY | 2024-06-04 06:46 | XMS_ITS | Encounter Summary ---
Author Organization [facility] Address [address] [place] [address] Care Team Providers Care English Language Learner Teacher Name Role Phone Govind Christopher MD Primary Care Provider [phone] Encounter Details Date Type Department Care Team (Late st Contact Info) Description 01/20/2022 Abstract [facility] Internal Medicine [address] [address] Govind Christopher MD [address] [place] [address] Social History Tobacco Use Types Packs/Day Years Used Date Smoking Tobacco: Never Smokeless Tobacco: Never Alcohol Use Standard Drinks/Week Comments No 0 (1 standard drink = 0.6 oz pur e alcohol) Sex and Gender Information Value Date Recorded Sex Assigned at Not on file Legal Sex Male 4:34 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 MANAGER PRIMARY CARE SALES Gender Identity Not on file Sexual Orientation Not on file documented as of this encounter Plan of Treatment Upcoming Encounters Date Type Department Care Team (Late st Contact Info) Description 09/09/2024 2:00 PM CDT Office Visit [facility] Internal Medicine [facility] [address] [place], [place] [address] [place] [address] Govind Christopher MD [address] [place] [address] documented as of this encounter Visit Diagnoses Not on filedocumented in this encounter Additional Health Concerns Assessment Noted Time PHQ-9 Depression Total Score: 1 11/09/19 22 10:39 AM CDT documented as of this encounter Care Teams English Language Learner Teacher Relationship Specialty Start Date End Date Govind Christopher MD [address] [place] [address] PCP - General Internal Medicine 07/15/18 documented as of this encounter
--- OUTSIDE RECORDS SUMMARY | 2024-06-04 06:46 | XMS_ITS | Referral Summary ---
Author Organization [facility] Address [address] [place] [address] Care Team Providers Care Occ Ther Name Role Phone Unavailable Primary Care Provider Unavailabl e Source Comments [facility],non-owned Affiliates and Associated Physician Practices is amultiple site organization consisting of ambulatory clinics and hospital sitesin [place], [place], [place] and [place]. This disclosure is being madepursuant to the Care Everywhere program and may not contain all information available regarding this patient. Last updated 18.[facility] Allergies No known active allergies Medications * [...] Comments Blood Pressure 90/56 05/01/2011 8:32 AM DISPATCHER REFINERY Pulse 78 05/01/2011 8:32 AM DISPATCHER REFINERY Temperature - - Respiratory Rate 18 05/01/2011 8:32 AM DISPATCHER REFINERY Oxygen Saturation - - Inhaled Oxygen Concentration - - Weight 41.4 kg (91 lb 4.8 oz) 05/01/2011 8:32 AM DISPATCHER REFINERY Height 131.8 cm (4' 3.89 ) 05/01/2011 8:32 AM CS T Body Mass Index 23.84 05/01/2011 8:32 AM DISPATCHER REFINERY Plan of Treatment Not on file
--- OUTSIDE RECORDS SUMMARY | 2024-06-04 06:46 | XMS_ITS | Encounter Summary ---
Author Organization [facility] Address [address] [place] [address] Care Team Providers Care Technical Applications Specialist Name Role Phone Govind Christopher MD Primary Care Provider Encounter Details Date Type Department Care Team (Late st Contact Info) Description 2000 Outpatient Historical [facility] - [facility] 2002 [address] [facility] [address] [address] Bright Joy MD [address] [place] [address] [address] [address] Social History Tobacco Use Types Packs/Day Years Used Date Smoking Tobacco: Never Assessed Sex and Gender Information Value Date Recorded Sex Assigned at Not on file Legal 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 Gender Identity Not on file Sexual Orientation Not on file documented as of this encounter Plan of Treatment Upcoming Encounters Date Type Department Care Team (Late st Contact Info) Description 09/09/2024 2:00 PM CDT Office Visit [facility] Internal Medicine [facility] [address] [address] Govind Christopher MD [address] [place] [address] [address] [place] [address] documented as of this encounter Visit Diagnoses Not on filedocumented in this encounter Care Teams Technical Applications Specialist Relationship Specialty Start Date End Date Govind Christopher MD [address] [place] [address] PCP - General Internal Medicine 07/15/18 documented as of this encounter
--- OUTSIDE RECORDS SUMMARY | 2024-06-04 06:46 | XMS_ITS | Encounter Summary ---
Author Organization [facility] Address [address] [place] [address] Care Team Providers Care Newspaper Stuffer Name Role Phone Govind Christopher MD Primary Care Provider Encounter Details Date Type Department Care Team (Late st Contact Info) Description 2000 Outpatient Historical [facility] - [facility] 2002 [address] 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 Gender Identity Not on file Sexual Orientation Not on file documented as of this encounter Plan of Treatment Upcoming Encounters Date Type Department Care Team (Late st Contact Info) Description 09/09/2024 2:00 PM CDT Office Visit [facility] Internal Medicine [facility] [address] [facility] [address] [address] Govind Christopher MD [address] [place] [address] [address] [place] [address] documented as of this encounter Visit Diagnoses Not on filedocumented in this encounter Care Teams Newspaper Stuffer Relationship Specialty Start Date End Date Govind Christopher MD [address] [place] [address] PCP - General Internal Medicine 07/15/18 documented as of this encounter
--- OUTSIDE RECORDS SUMMARY | 2024-06-04 06:46 | XMS_ITS | Continuity of Care Document ---
Author Organization [facility] Address [address] [place] [address] Phone Care Team Providers Care Steel Plate Caulker Name Role Phone Martha Jacques Unavailable Unavailab [...] No Longer Active Procedures Procedure Date OFFICE [id number] BODY MASS INDEX DOCD SYST BP LT 130 MM HG DIAST BP 80-89 MM HG OFFICE [id number] BODY MASS INDEX DOCD SYST BP GE 130 - 139MM HG DIAST BP 80-89 MM HG OFFICE [id number] BODY MASS INDEX DOCD SYST BP LT 130 MM HG DIAST BP < 80 MM HG TISSUE EXAM BY PATHOLOGIST UPPER GI ENDOSCOPY BIOPSY TISSUE EXAM BY PATHOLOGIST COLONOSCOPY AND BIOPSY OFFICE FARPU-DNE-GOIE-MED BODY MASS INDEX DOCD SYST BP LT 130 MM HG DIAST BP 80-89 MM HG Advance Directives Directive Yes / No Effective Date File Name No Information Encounters Encounter Description Practice Location Reason(s) For Visit Diagnoses Date Provider Providers Copied on Encounter OFFICE HIBNO-VED-EV [email or web address], [address], [place], [place], [id number] , tel: [phone] [facility] Follow up (chief complaint) Chronic constipationGastro paresis 5 Janes Thomas. [address] [place] [address], [id number] , . tel: [phone] Referring Provider: Ean [address] [facility] [address], [place], [address]. tel:[phone] [employer], [address], [place], [place], [id number] , [place] tel: [phone] [facility] No Information 5 Mary Lou Muñoz. [address] [place] [address], [id number] , . tel: [phone] OFFICE NFAFB-XNC-FW [email or web address], [address], [place], [place], [address] , [place] tel: [phone] [facility] GI problems (chief complaint) GastroparesisChron ic constipationLower abdominal pain 4 Mary Lou Muñoz. [address] [place] [address], [id number] , . tel:[phone] Referring Provider: Govind Christopher [address] [facility] [address], [place], [address]. tel:[phone] OFFICE YBBSY-JCF-UJ [facility], [address], [place], [place], [address] , tel: [phone] [facility] GI problems (chief complaint) Chronic nauseaWeight lossChronic constipationGastro paresis 3 Mary Lou Toni. [address] [place] [address], [id number] , . tel: [phone] Referring Provider: Martha Marrero, [address] [place] [address], [address] . tel:[phone] [facility], [address], [place], [place], [address] , [place] tel: [phone] [facility] No Information 3 Mary Lou Toni. [address] [place] [address], [id number] , . tel: [phone] Referring Provider: Aquilino Paz S [place] [address] [facility] [address], [place], [address]. tel:[phone] [facility], [address], [place], [place], [address] , [place] tel: [phone] [facility] No Information 3 Mary Lou Toni. [address] [place] [address], [id number] , [place]. tel:[phone] Referring Provider: Aquilino Paz S [address] [facility] [address], [place], [address]. tel:[phone] [facility], [address], [place], [place], [address] , [place] tel: [phone] [facility] No Information 3 Mary Lou Toni. [address] [place] [address], [id number] , . tel:[phone] Referring Provider: Aquilino Paz [address] [facility] [address], [place], [address]. tel:[phone] [facility], [address], [place], [place], [address] , [place] tel: [phone] [facility] No Information 3 Mary Lou Muñoz. [address] [place] [address] B, [place], [place], [id number] , . tel:[phone] Referring Provider: Toni Barreto, [address] [facility] [address], [place], [address] . tel:[phone] [facility]ICE [facility], [address], [place], [place], [address] , [place] tel:[phone] [facility] GI problems-- Diarrhea (chief complaint) Nausea vomiting and diarrheaDiarrhea, unspecifiedWeight lossLower abdominal pain 3 Mary Lou Muñoz. [address] [place] [address] B, [place], [place], [id number] , . tel:[phone] Referring Provider: Govind Christopher, [address] [facility] [address] [facility] [address], [place], [address]. tel:[phone] Family History Family Member Type Diagnosis Age At Onset No Information Payers Payer name Insurance type Covered democrat ID Authoriza eduardo(s) [facility] ACCESS CHOICE [id number] Social History Type Description Quantity Date Captured [...] Protein bars and shakes make him constipated. [place] 1 and straining. GI problems--Diarrhea Over a mon of diarrhea. Has also been having episodes of vomiting. has been having chronic nausea. In past would go once every other day. When diarrhea was bad would [place] 6 and 7 and go 6-7 times [...] Lower abdominal pain Continue Linzess Related to Scientific Advisor kelly constipation Continue present yashira atmentReglan stopped [...] Mental Status Date Cognitive Assessment Orientation - [place] ed to time, place, person, situation. Patient Care Teams Name Effective Dates (start - stop) Status Members No Information
--- OUTSIDE RECORDS SUMMARY | 2024-06-04 06:46 | XMS_ITS | Clinical Summary ---
Author Organization [facility] Address [address] [facility] [place] [address] Care Team Providers Care Programmer Numerical Control Name Role Phone Unavailable Primary Care Provider Unavailabl e Source Comments [facility],non-owned Affiliates and Associated Physician Practices is amultiple site organization consisting of ambulatory clinics and hospital sitesin [place], [place], [place] and [place]. This disclosure is being madepursuant to the Care Everywhere program and may not contain all information available regarding this patient. Last updated 18.[facility] Allergies No known active allergies Medications * [...] Comments Blood Pressure 90/56 05/01/2011 8:32 AM TAPE DUPLICATOR Pulse 78 05/01/2011 8:32 AM TAPE DUPLICATOR Temperature - - Respiratory Rate 18 05/01/2011 8:32 AM TAPE DUPLICATOR Oxygen Saturation - - Inhaled Oxygen Concentration - - Weight 41.4 kg (91 lb 4.8 oz) 05/01/2011 8:32 AM TAPE DUPLICATOR Height 131.8 cm (4' 3.89 ) 05/01/2011 8:32 AM CS T Body Mass Index 23.84 05/01/2011 8:32 AM TAPE DUPLICATOR Plan of Treatment Health Maintenance Due Date [...]
--- OUTSIDE RECORDS SUMMARY | 2024-06-04 06:46 | XMS_ITS | Referral Summary ---
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 Cohen Insurance ANTHEM ACCESS CHOICE ANTHEM ACCESS CHOICE ANTHEM ACCESS CHOICE ANTH ACCESS CHOICE Advance Directives For more information, please contact: [phone] * Full Code (Latest Code Status on File) Date Activated Date Inactivated Comments 07/15/2019 4:22 PM 07/17/2019 10:05 PM Care Teams Professor Of Chemistry Relationship Specialty Start Date End Date Govind Christopher MD PCP - General Critical Care Med 11/23/21 Unknown, Notinfile 11/23/21 Aidan Maynard MD Consulting Physician Urology 07/17/19
--- OUTSIDE RECORDS SUMMARY | 2024-06-04 07:39 | XMS_ITS | Continuity of Care Document ---
Author Organization [facility] Address [address] [place] [address] Phone Care Team Providers Care Cbx Operator Name Role Phone Martha Jacques Unavailable Unavailab [...] No Longer Active Procedures Procedure Date OFFICE [id number] BODY MASS INDEX DOCD SYST BP LT 130 MM HG DIAST BP 80-89 MM HG OFFICE [id number] BODY MASS INDEX DOCD SYST BP GE 130 - 139MM HG DIAST BP 80-89 MM HG OFFICE [id number] BODY MASS INDEX DOCD SYST BP LT 130 MM HG DIAST BP < 80 MM HG TISSUE EXAM BY PATHOLOGIST UPPER GI ENDOSCOPY BIOPSY TISSUE EXAM BY PATHOLOGIST COLONOSCOPY AND BIOPSY OFFICE [id number]-[id number] BODY MASS INDEX DOCD SYST BP LT 130 MM HG DIAST BP 80-89 MM HG Advance Directives Directive Yes / No Effective Date File Name No Information Encounters Encounter Description Practice Location Reason(s) For Visit Diagnoses Date Provider Providers Copied on Encounter OFFICE [id number]-NSI-EK [employer], [address], [place], [place], [address] , tel: [phone] [facility] Follow up (chief complaint) Chronic constipationGastro paresis 5 Janes Thomas. [address] [place] [address], [id number] , . tel: [phone] Referring Provider: Ean [address] [employer] [address] [facility] [address], [place], [address]. tel:[phone] [employer], [address], [place], [place], [address] , [place] tel: [phone] [facility] No Information 5 Mary Lou Muñoz. [address] [place] [address], [id number] , . tel: [phone] OFFICE AVJDK-MJL-GV [employer], [address], [place], [place], [address] , [place] tel: [phone] [facility] GI problems (chief complaint) GastroparesisChron ic constipationLower abdominal pain 4 Mary Lou Muñoz. [address] [place] [address], [id number] , . tel:[phone] Referring Provider: Govind Christopher [address] [employer] [address] [facility] [address], [place], [address]. tel:[phone] OFFICE YUBOS-DXF-UB [facility], [address], [place], [place], [address] , tel: [phone] [facility] GI problems (chief complaint) Chronic nauseaWeight lossChronic constipationGastro paresis 3 Mary Lou Toni. [address] [place] [address], [id number] , . tel: [phone] Referring Provider: Martha Marrero, [address] [place] [address], [address] . tel:[phone] [facility], [address], [place], [place], [address] , [place] tel: [phone] [facility] No Information 3 Mary Lou Toni. [address] [place] [address], [id number] , . tel: [phone] Referring Provider: Aquilino Paz S [employer] [address] [facility] [address], [place], [address]. tel:[phone] [facility], [address], [place], [place], [id number] , [place] tel: [phone] [facility] No Information 3 Mary Lou Toni. [address] [place] [address], [id number] , [place]. tel:[phone] Referring Provider: Aquilino Paz S [address] [employer] [facility] [address], [place], [address]. tel:[phone] [facility], [address], [place], [place], [address] , [place] tel: [phone] [facility] No Information 3 Mary Lou Toni. [address] [place] [address], [id number] , . tel:[phone] Referring Provider: Aquilino Paz S [address] [facility] [address], [place], [address]. tel:[phone] [facility], [address], [place], [place], [address] , [place] tel: [phone] [facility] No Information 3 Mary Lou Muñoz. [address] [place] [address] B, [place], [place], [id number] , . tel:[phone] Referring Provider: Toni Barreto, [address] [facility] [address], [place], [address] . tel:[phone] [facility]ICE [facility], [address], [place], [place], [address] , [place] tel:[phone] [facility] GI problems-- Diarrhea (chief complaint) Nausea vomiting and diarrheaDiarrhea, unspecifiedWeight lossLower abdominal pain 3 Mary Lou Muñoz. [address] [place] [address] B, [place], [place], [id number] , . tel:[phone] Referring Provider: Govind Christopher, [address] [facility] [address] [facility] [address], [place], [address]. tel:[phone] Family History Family Member Type Diagnosis Age At Onset No Information Payers Payer name Insurance type Covered libertarian ID Authoriza eduardo(s) [facility] ACCESS CHOICE [id number] Social History Type Description Quantity Date Captured [...] Protein bars and shakes make him constipated. [place] 1 and straining. GI problems--Diarrhea Over a mon of diarrhea. Has also been having episodes of vomiting. has been having chronic nausea. In past would go once every other day. When diarrhea was bad would [place] 6 and 7 and go 6-7 times [...] Lower abdominal pain Continue Linzess Related to Pmo Analyst kelly constipation Continue present yashira atmentReglan stopped [...] Mental Status Date Cognitive Assessment Orientation - [place] ed to time, place, person, situation. Patient Care Teams Name Effective Dates (start - stop) Status Members No Information
--- OUTSIDE RECORDS SUMMARY | 2024-06-04 07:39 | XMS_ITS | Encounter Summary ---
Author Organization [facility] Address [address] [place] [address] Care Team Providers Care Safety Pin Assembling Machine Operator Name Role Phone Govind Christopher MD Primary Care Provider Encounter Details Date Type Department Care Team (Late st Contact Info) Description 2000 Outpatient Historical [facility] - [facility] [place] [address] [facility] [address] [address] Shannon Orellana MD NO ADDRESS ON FILE Social History Tobacco Use Types Packs/Day Years Used Date Smoking Tobacco: Never Assessed Sex and Gender Information Value Date Recorded Sex Assigned at Not on file Legal Sex Male 4:34 AM HEALTHCARE OR MEDICAL Gender Identity Not on file Sexual Orientation Not on file documented as of this encounter Plan of Treatment Upcoming Encounters Date Type Department Care Team (Late st Contact Info) Description 09/09/2024 2:00 PM CDT Office Visit [facility] Internal Medicine [facility] [place] [address] [facility] [address] [address] Govind Christopher MD [address] [address] [address] documented as of this encounter Visit Diagnoses Not on filedocumented in this encounter Care Teams Safety Pin Assembling Machine Operator Relationship Specialty Start Date End Date Govind Christopher MD [address] [place] [address] PCP - General Internal Medicine 07/15/18 documented as of this encounter
--- OUTSIDE RECORDS SUMMARY | 2024-06-04 07:39 | XMS_ITS | Encounter Summary ---
Author Organization [facility] Address [address] [place] [address] Care Team Providers Care Fisher Lobster Name Role Phone Unknown, Notinfile Primary Care Provider Unavail able Govind Christopher MD Primary Care Provider [phone] Unknown, Notinfile Unavailable Unavailable Aidan Maynard MD Unavailable [phone] Encounter Details Date Type Department Care Team (Late st Contact Info) Description 07/23/2019 Telephone [facility] - Interventional Radiology [address] [place] [address] Virginia Tovar RN Social History Tobacco Use Types Packs/Day Years Used Date Smoking Tobacco: Never Smokeless Tobacco: Never Alcohol Use Standard Drinks/Week Comments Yes 0 (1 standard drink = 0.6 oz pur e alcohol) rare Sex and Gender Information Value Date Recorded Sex Assigned at Not on file Legal Sex Male 7:59 AM SHAREPOINT ARCHITECT Gender Identity Male 11/25/2021 7:39 AM CDT [...] on filedocumented in this encounter Care Teams Fisher Lobster Relationship Specialty Start Date End Date Unknown, Notinfile PCP - General 07/08/19 11/22/21 Govind Christopher MD PCP - General Critical Care Med 11/23/21 Unknown, Notinfile 11/23/21 Aidan Maynard MD Consulting Physician Urology 07/17/19 documented as of this encounter
--- OUTSIDE RECORDS SUMMARY | 2024-06-04 07:39 | XMS_ITS | Referral Summary ---
Author Organization [facility] Address [address] [place] [address] Care Team Providers Care Label Designer Name Role Phone Govind Christopher MD Primary Care Provider [phone] Unknown, Notinfile Unavailable Unavailable Aidan Maynard MD Unavailable [phone] Encounters Date Type Department Care Team Description 04/02/2024 Orders Only [facility] ADMIT [address] [place], [place] [id number] Jeremy Curry MD from Last 3 Months [...] on file Legal Sex Male 7:59 AM ENGINEERING ASSISTANT Gender Identity Male 11/25/2021 7:39 AM CDT [...] on file Medical Devices Implanted Type Area Pari Mutuel Ticket Seller Device Identifier Shelf Expiration Date Model / Serial / Lot [employer] [id number] Amplatz 8.5fr 26cm 6 Sideport Introducer Catheter String - [id number] Implanted:Qty: 1 on 07/17/2019 at [facility] [employer] 03/05/2022 [id number] 10 / / [id number] Description:Left JJ stent pl aced by dr. Cohen Insurance ANTHEM ACCESS CHOICE ANTHEM ACCESS CHOICE ANTHEM ACCESS CHOICE ANTH ACCESS CHOICE Advance Directives For more information, please contact: [phone] * Full Code (Latest Code Status on File) Date Activated Date Inactivated Comments 07/15/2019 4:22 PM 07/17/2019 10:05 PM Care Teams Label Designer Relationship Specialty Start Date End Date Govind Christopher MD PCP - General Critical Care Med 11/23/21 Unknown, Notinfile 11/23/21 Aidan Maynard MD Consulting Physician Urology 07/17/19
--- OUTSIDE RECORDS SUMMARY | 2024-06-04 07:39 | XMS_ITS | Encounter Summary ---
Author Organization [facility] Address [address] [place] [address] Care Team Providers Care Annual Giving Director Name Role Phone Govind Christopher MD Primary Care Provider Encounter Details Date Type Department Care Team (Late st Contact Info) Description 2000 Outpatient Historical [facility] Pediatrics - [facility] 2002 [address] [facility] [address] [address] Bright Joy MD [address] [place] [address] [address] [address] Social History Tobacco Use Types Packs/Day Years Used Date Smoking Tobacco: Never Assessed Sex and Gender Information Value Date Recorded Sex Assigned at Not on file Legal Sex Male 4:34 AM LIAISON ENGINEER Gender Identity Not on file Sexual Orientation Not on file documented as of this encounter Plan of Treatment Upcoming Encounters Date Type Department Care Team (Late st Contact Info) Description 09/09/2024 2:00 PM CDT Office Visit [facility] Internal Medicine [facility] [address] [facility] [address] [address] Govind Christopher MD [address] [place] [address] [address] [place] [address] documented as of this encounter Visit Diagnoses Not on filedocumented in this encounter Care Teams Annual Giving Director Relationship Specialty Start Date End Date Govind Christopher MD [address] [place] [address] PCP - General Internal Medicine 07/15/18 documented as of this encounter
--- OUTSIDE RECORDS SUMMARY | 2024-06-04 07:39 | XMS_ITS | Encounter Summary ---
Author Organization [facility] Address [address] [facility] Attn: [place] [address] Care Team Providers Care Incinerator Plant General Supervisor Name Role Phone Govind Christopher MD Primary Care Provider Encounter Details Date Type Department Care Team (Late st Contact Info) Description 2000 Inpatient Historical Shannon Orellana MD NO ADDRESS ON FILE Yadira Pinzon MD [address] [place] [address] [place] [address] Twin, mate liveborn, born in hospital, delivered by delivery (Primary Dx) Social History Tobacco Use Types Packs/Day Years Used Date Smoking Tobacco: Never Assessed Sex and Gender Information Value Date Recorded Sex Assigned at Not on file Legal Sex Male 4:34 AM RANGE OPERATOR Gender Identity Not on file Sexual Orientation Not on file documented as of this encounter Plan of Treatment Upcoming Encounters Date Type Department Care Team (Late st Contact Info) Description 09/09/2024 2:00 PM CDT Office Visit [facility] Internal Medicine Medical [place] [facility] [address] [facility] [address] [place] [address] Govind Christopher MD [address] [place] [address] [address] [place] [address] documented as of this encounter Visit Diagnoses Diagnosis Twin, mate liveborn, born in hospital, delivered by delivery- Primary documented in this encounter Care Teams Incinerator Plant General Supervisor Relationship Specialty Start Date End Date Govind Christopher MD [address] [place] [address] PCP - General Internal Medicine 07/15/18 documented as of this encounter
--- OUTSIDE RECORDS SUMMARY | 2024-06-04 07:39 | XMS_ITS | Encounter Summary ---
Author Organization [facility] Address [address] [place] [address] Care Team Providers Care Complaints Coordinator Name Role Phone Govind Christopher MD Primary Care Provider [phone] Encounter Details Date Type Department Care Team (Late st Contact Info) Description [address] [facility] Pediatrics - [facility] 2002 [address] [facility] [address] [address] Bright Joy MD [address] [place] [address] [address] [address] Social History Tobacco Use Types Packs/Day Years Used Date Smoking Tobacco: Never Assessed Sex and Gender Information Value Date Recorded Sex Assigned at Not on file Legal Sex Male 4:34 AM GENERAL SALES MANAGER Gender Identity Not on file Sexual Orientation Not on file documented as of this encounter Plan of Treatment Upcoming Encounters Date Type Department Care Team (Late st Contact Info) Description 09/09/2024 2:00 PM CDT Office Visit [facility] Internal Medicine [facility] [address] [facility] [address] [address] Govind Christopher MD [address] [place] [address] [address] [place] [address] documented as of this encounter Visit Diagnoses Not on filedocumented in this encounter Care Teams Complaints Coordinator Relationship Specialty Start Date End Date Govind Christopher MD [address] [place] [address] PCP - General Internal Medicine 07/15/18 documented as of this encounter
--- OUTSIDE RECORDS SUMMARY | 2024-06-04 07:39 | XMS_ITS | Clinical Summary ---
Author Organization [facility] Address [address] [place] [address] Phone Care Team Providers Care Principal Quality Engineer Name Role Phone Govind Christopher MD Primary [...] Department Care Team Description 04/02/2024 Orders Only [facility] [address] [place] [address] Gila Jc MA Nephrolithiasis (Primary Dx) 04/02/2024 Orders Only [facility] [address] [place] [address] Jeremy Curry MD Nephrolithiasis (Primary Dx) from [...] Description 07/09/2024 11:20 AM CDT Office Visit [facility] [address] [place] [address] Jeremy Curry MD [address] [place], [place] [address] Health Maintenance Due Date Last Done Comments Pneumococcal PPSV23 Highest Risk Adult (2 of 3 - PPSV23) 02/26/2019 03/13/2001, 2000, 2000, Additional history exists Influenza Vaccine (#1) 2023 03/07/2022 Procedures Procedure Name Priority Date/Time Associated Diagnosis Comments RENAL FUNCTION PANEL (RFP) Routine 05/08/2024 11:15 AM HANDLE LATHE OPERATOR Nephrolithiasis LITHOLINK 24-HOUR URINE, [place] Routine 04/28/2024 6:45 AM HANDLE LATHE OPERATOR Nephrolithiasis from Last 3 Months Results * Renal Function Panel (RFP) (05/08/2024 11:15 AM HANDLE LATHE OPERATOR) Glucose, Serum/Plasma 99 65 - 99 mg/dL [facility] [facility]) Comment: Fasting reference interval Urea nitrogen, Serum/Plasma (BUN) 14 7 - 25 mg/dL [facility]) Creatinine, Serum/Plasma 0.83 0.60 - 1.24 mg/dL [facility] ([facility]) Estimated Glomerular Filtration Rate (eGFR) 125 > OR = 60 mL/min/1.7 3m2 [facility] [place]) Urea nitrogen/Creati nine, Serum/Plasma SEE NOTE: 6 - 22 (calc) [facility] ([facility]) Comment: Not Reported: BUN and Creatinine are within reference range. Sodium, Serum/Plasma 140 135 - 146 mmol/L [facility] ([facility]) Potassium, Serum/Plasma 4.3 3.5 - 5.3 mmol/L [facility] ([facility]) Chloride, Serum/Plasma 103 98 - 110 mmol/L [facility] ([facility]) Carbon dioxide CO2), total, Serum/Plasma 27 20 - 32 mmol/L [facility] ([facility]) Calcium, Serum/Plasma 9.8 8.6 - 10.3 mg/dL [facility] ([facility]) Phosphate, Serum/Plasma 3.1 2.5 - 4.5 mg/dL [facility] ([facility]) Albumin, Serum/Plasma 4.9 3.6 - 5.1 g/dL [facility]) Blood (Blood, Venous) 05/08/2024 11:15 AM HANDLE LATHE OPERATOR 05/08/2024 11:16 AM HANDLE LATHE OPERATOR Narrative Resulting Agency Comment Performing Organization Information: Site ID: Name: [facility] Address: [address] [place] [address] Director: Mila Diaz Jeremy Curry MD LAB BLOOD ORDERABLES [facility]) * (ABNORMAL) Litholink 24-Hour Urine Panel (04/28/2024 6:45 AM HANDLE LATHE OPERATOR) CYSTINE, URINE, QUALITATIVE CANCELED [facility] 1 Comment: [...] PDF . [facility] 1 04/28/2024 6:45 AM HANDLE LATHE OPERATOR 05/01/2024 11:00 PM HANDLE LATHE OPERATOR Narrative [facility] - 05/03/2024 2:07 AM HANDLE LATHE OPERATOR Performed at: [address] [id number] [employer] Publisher Business: Eliza Leon PhD, Phone: [phone] Jeremy Curry MD LAB URINE ORDERABLES [facility] 1 from Last 3 Months Care Teams Principal Quality Engineer Relationship Specialty Start Date End Date Govind Christopher MD [address] [place], [place] [address] [address] PCP - General Internal Medicine 08/05/19
--- OUTSIDE RECORDS SUMMARY | 2024-06-04 07:39 | XMS_ITS | Patient Health Summary ---
Author Organization [facility] [employer] Address [address] [facility] [place] [address] Care Team Providers Care Agent Ticketing Gate Name Role Phone Unavailable Primary Care Provider Unavailabl e Note from [facility],non-owned Affiliates and Associated Physician Practices is amultiple site organization consisting of ambulatory clinics and hospital sitesin [place], [place], [place] and [place]. This disclosure is being madepursuant to the Care Everywhere program and may not contain all information available regarding this patient. Last updated 18.[facility] [employer] Allergies No known active allergies Medications * [...] Comments Blood Pressure 90/56 05/01/2011 8:32 AM TRIPPER Pulse 78 05/01/2011 8:32 AM TRIPPER Temperature - - Respiratory Rate 18 05/01/2011 8:32 AM TRIPPER Oxygen Saturation - - Inhaled Oxygen Concentration - - Weight 41.4 kg (91 lb 4.8 oz) 05/01/2011 8:32 AM TRIPPER Height 131.8 cm (4' 3.89 ) 05/01/2011 8:32 AM CS T Body Mass Index 23.84 05/01/2011 8:32 AM TRIPPER Procedures * LAB RESULTS ORDER(Performed 06/06/2011) * XR BONE AGE STUDY(Performed 05/01/2011) Performed for Short stature Results * LAB RESULTS ORDER (06/06/2011 4:04 PM TRIPPER) Narrative Transcriptions Document, Scanned - 06/06/2011 4:04 PM CST Scanned Document LAB - THERAPEUTIC DR MAYERS MONITORING ORDERABLES * XR BONE AGE HAND AND WRIST (05/01/2011 9:39 AM TRIPPER) Anatomical Region Laterality Modality Upper Extremity, Wrist / Hand Ra diographic Imaging 05/01/2011 10:4 2 AM TRIPPER Narrative 05/01/2011 11:32 AM TRIPPER EXAM: Bone Age Hand, male FINDINGS: Chronologic [...]
--- OUTSIDE RECORDS SUMMARY | 2024-06-04 07:39 | XMS_ITS | Referral Summary ---
Author Organization [facility] Address [address] [place] [address] Care Team Providers Care Senior Counsel Name Role Phone Unavailable Primary Care Provider Unavailabl e Source Comments [facility],non-owned Affiliates and Associated Physician Practices is amultiple site organization consisting of ambulatory clinics and hospital sitesin [place], [place], [place] and [place]. This disclosure is being madepursuant to the Care Everywhere program and may not contain all information available regarding this patient. Last updated 18.[facility] [employer] Allergies No known active allergies Medications * [...] Comments Blood Pressure 90/56 05/01/2011 8:32 AM BUSINESS UNIT DIRECTOR Pulse 78 05/01/2011 8:32 AM BUSINESS UNIT DIRECTOR Temperature - - Respiratory Rate 18 05/01/2011 8:32 AM BUSINESS UNIT DIRECTOR Oxygen Saturation - - Inhaled Oxygen Concentration - - Weight 41.4 kg (91 lb 4.8 oz) 05/01/2011 8:32 AM BUSINESS UNIT DIRECTOR Height 131.8 cm (4' 3.89 ) 05/01/2011 8:32 AM CS T Body Mass Index 23.84 05/01/2011 8:32 AM BUSINESS UNIT DIRECTOR Plan of Treatment Not on file
--- OUTSIDE RECORDS SUMMARY | 2024-06-04 07:39 | XMS_ITS | Clinical Summary ---
Author Organization [facility] Address [address] [place] [address] Care Team Providers Care Product Grader Name Role Phone Govind Christopher MD Primary Care Provider [phone] Unknown, Notinfile Unavailable Unavailable Aidan Maynard MD Unavailable [phone] Allergies Active Allergy Reactions Criticality Noted [...] Team Description 04/02/2024 Orders Only [facility] [place] [address] Jeremy Curry MD from Last 3 Months [...] on file Legal Sex Male 7:59 AM BLACKING MACHINE OPERATOR Gender Identity Male 11/25/2021 7:39 AM [...] 11/2014, 10/12/2014 Medical Devices Implanted Type Area Escort Car Driver Device Identifier Shelf Expiration Date Model / Serial / Lot Zenverge [id number] Amplatz 8.5fr 26cm 6 Sideport Introducer Catheter String - [id number] Implanted:Qty: 1 on 07/17/2019 at [facility] [employer] 03/05/2022 [id number] / / [id number] Description:Left JJ stent pl aced by dr. Cohen Insurance [employer] CHOICE [place] ACCESS CHOICE ANTHEM ACCESS CHOICE Advance Directives For more information, please contact: [phone] * Full Code (Latest Code Status on File) Date Activated Date Inactivated Comments 07/15/2019 4:22 PM 07/17/2019 10:05 PM Care Teams Product Grader Relationship Specialty Start Date End Date Govind Christopher MD PCP - General Critical Care Med 11/23/21 Unknown, Notinfile 11/23/21 Aidan Maynard MD Consulting Physician Urology 07/17/19
--- OUTSIDE RECORDS SUMMARY | 2024-06-04 07:39 | XMS_ITS | Clinical Summary ---
Author Organization [facility] [employer] Address [address] [facility] [place] [address] Care Team Providers Care Repairer And Checker Name Role Phone Unavailable Primary Care Provider Unavailabl e Source Comments [facility],non-owned Affiliates and Associated Physician Practices is amultiple site organization consisting of ambulatory clinics and hospital sitesin [place], [place], [place] and [place]. This disclosure is being madepursuant to the Care Everywhere program and may not contain all information available regarding this patient. Last updated 18.[facility] [employer] Allergies No known active allergies Medications * [...] Comments Blood Pressure 90/56 05/01/2011 8:32 AM CARGO ROUTER Pulse 78 05/01/2011 8:32 AM CARGO ROUTER Temperature - - Respiratory Rate 18 05/01/2011 8:32 AM CARGO ROUTER Oxygen Saturation - - Inhaled Oxygen Concentration - - Weight 41.4 kg (91 lb 4.8 oz) 05/01/2011 8:32 AM CARGO ROUTER Height 131.8 cm (4' 3.89 ) 05/01/2011 8:32 AM CS T Body Mass Index 23.84 05/01/2011 8:32 AM CARGO ROUTER Plan of Treatment Health Maintenance Due Date [...]
--- OUTSIDE RECORDS SUMMARY | 2024-06-04 07:39 | XMS_ITS | Encounter Summary ---
Author Organization [facility] Address [address] [place] [address] Care Team Providers Care Manager Validation Name Role Phone Govind Christopher MD Primary Care Provider [phone] Encounter Details Date Type Department Care Team (Late st Contact Info) Description 01/20/2022 Abstract [facility] Internal Medicine [address] [address] Govind Christopher MD [address] [place] [address] Social History Tobacco Use Types Packs/Day Years Used Date Smoking Tobacco: Never Smokeless Tobacco: Never Alcohol Use Standard Drinks/Week Comments No 0 (1 standard drink = 0.6 oz pur e alcohol) Sex and Gender Information Value Date Recorded Sex Assigned at Not on file Legal Sex Male 4:34 AM PSYCHIATRIC ORDERLY Gender Identity Not on file Sexual Orientation Not on file documented as of this encounter Plan of Treatment Upcoming Encounters Date Type Department Care Team (Late st Contact Info) Description 09/09/2024 2:00 PM CDT Office Visit [facility] Internal Medicine [facility] [address] [place], [place] [address] [place] [address] Govind Christopher MD [address] [place] [address] documented as of this encounter Visit Diagnoses Not on filedocumented in this encounter Additional Health Concerns Assessment Noted Time PHQ-9 Depression Total Score: 1 11/09/19 22 10:39 AM CDT documented as of this encounter Care Teams Manager Validation Relationship Specialty Start Date End Date Govind Christopher MD [address] [place] [address] PCP - General Internal Medicine 07/15/18 documented as of this encounter
--- OUTSIDE RECORDS SUMMARY | 2024-06-04 07:39 | XMS_ITS | Clinical Summary ---
Author Organization [facility] Address [address] [place] [address] Phone Care Team Providers Care Biodiesel Production Technician Name Role Phone Govind Christopher MD Primary Care Provider [phone] Allergies Active Allergy Reactions Criticality Noted Date [...] Data STL ABSTRACTION Provider, Abstract 03/17/[address] [facility] Internal Medicine [facility] [address] [facility] [address] [address] Govind Christopher MD Medication Problem [...] on file Legal Sex Male 4:34 AM LAUNDRY HOUSEKEEPER Gender Identity Not on file Sexual Orientation [...] 09/09/2024 2:00 PM CDT Office Visit [facility] Internal Medicine Medical [place] [facility] [address] [facility] [address] [place] [address] Govind Christopher MD [address] [facility] [address] [place] [address] Health Maintenance Due Date Last [...] Completed 06/21/2015, 11/2014, 10/12/2014 Insurance HANSA PORTILLO [address] [employer] ACCESS CHOICE Care Teams Biodiesel Production Technician Relationship Specialty Start Date End Date Govind Christopher MD [address] [place] [address] PCP - General Internal Medicine 07/15/18
--- NOTE | 2024-06-04 07:59 | P.PNAN_ITS ---
Anes - Initial Pre Proc Eval Procedure: Operation Date: 06/04/24 10:30 Proposed Procedures p Cystoscopy, Left Stent Placement - Aidan Maynard MD Date/Time: 06/04/24 07:59 Surgeon: Aidan Maynard MD Pre Op Diagnosis: im having kidney stone pain Patient Data Age: 24 Gender: M Height: 1.6 m Weight: 102 kg Last Vital Signs Temp 37.1 C 06/04/24 06:12 Pulse 90 06/04/24 07:58 Resp 15 06/04/24 07:58 BP 149/77 H 06/04/24 07:58 Pulse Ox 97 06/04/24 07:58 O2 Del Method Room Air 06/04/24 05:04 Allergies Allergy/AdvReac Type Severity Reaction Status Date / Time amoxicillin (From Augmentin) AdvReac Mild Rash Verified 06/04/24 08:50 clavulanic acid (From AdvReac Mild Rash Verified 06/04/24 08:50 Augmentin) Home Medications ?Medication ?Instructions ?Recorded ?Confirmed ?Type alprazolam 0.25 mg tablet 0.25 mg PO PRN PRN Anxiety 12/02/20 06/04/24 History sertraline 50 mg tablet 100 mg PO HS 12/02/20 06/04/24 History acetaminophen 500 mg tablet 1,000 mg PO Q4-6H PRN PAIN 12/07/20 06/04/24 History hydrochlorothiazide 12.5 mg tablet 12.5 mg PO BID 11/07/21 06/04/24 History tamsulosin 0.4 mg capsule 0.4 mg PO DAILY 11/07/21 06/04/24 History atorvastatin 10 mg tablet 10 mg PO DAILY 12/21/22 06/04/24 History potassium citrate 15 mEq (1,620 15 meq PO BID 12/21/22 06/04/24 History mg) tablet,extended release linaclotide 72 mcg capsule 72 mcg PO DAILY 03/06/23 06/04/24 History (Linzess) ondansetron 4 mg disintegrating 4 mg PO Q8H 03/06/23 06/04/24 History tablet naproxen sodium 550 mg tablet 550 mg PO Q12H PRN pain #14 tabs 05/20/24 06/04/24 Rx (Anaprox DS) Laboratory Tests 06/04/24 05:36 WBC 12.0 H K/mm3 (4.5-10.0) RBC 4.71 M/mm3 (4.6-6.20) Hgb 14.2 g/dL (14.0-18.0) Hct 42.7 % (42.0-52.0) MCV 90.7 fl (80-100) MCH 30.1 pg (26-34) MCHC 33.3 g/dl (32-36) RDW 12.2 % (11.5-14.5) Plt Count 298 k/mm3 (150-375) MPV 10.1 fl (7.4-10.4) Immature Gran % (Auto) 0.4 % (0-0.5) Neut % (Auto) 77.6 H % (45.5-73.1) Lymph % (Auto) 16.9 L % (18.3-44.2) [place] % (Auto) 4.0 % (2.6-8.5) Eos % (Auto) 0.8 % (0-4.4) Baso % (Auto) 0.3 % (0.2-1.2) Lymph # (Auto) 2.03 K/mm3 (0.9-3.2) [place] # (Auto) 0.5 K/mm3 (0.1-0.6) Eos # (Auto) 0.1 K/mm3 (0-0.3) Baso # (Auto) 0.0 K/mm3 (0.0-0.1) Abs Immat Gran (auto) 0.05 H K/mm3 (0.00-0.031) Absolute Neuts (auto) 9.3 H K/mm3 (1.3-6.7) Absolute Nucleated RBC 0.000 K/mm3 (0.0-0.012) Nucleated RBC % 0.0 % (0.0-0.2) Sodium 140 mmol/L (137-145) Potassium 3.8 mmol/L (3.4-5.0) Chloride 102 mmol/L (98-107) Carbon Dioxide 25 mmol/L (22-30) Anion Gap 13 H mmol/L (4-12) BUN 19 mg/dL (9-20) Creatinine 0.90 mg/dL (0.7-1.3) Estim Creat Clear Calc 118 ml/min Estimated GFR > 60 (59 - ) Glucose 134 H mg/dL (65-110) Calcium 9.8 mg/dL (8.4-10.2) Total Bilirubin 0.6 mg/dL (0.2-1.3) AST 36 U/L (17-59) ALT 58 H U/L (6-50) Alkaline Phosphatase 92 U/L (38-126) Total Protein 8.0 g/dL (6.3-8.2) Albumin 4.6 g/dL (3.5-5.1) Urine Color Red H (Yellow) Urine Appearance Turbid H (Clear) Urine pH 5.5 (5.0-9.0) Ur Specific [place] 1.023 (1.001-1.035) Urine Protein 2+ H mg/dL (Negative) Urine Glucose (UA) Negative mg/dL (Negative) Urine Ketones Negative mg/dL (Negative) Ur Blood (Man) 3+ H (Negative) Urine Nitrate Negative (Negative) Urine Bilirubin 1+ H (Negative) Urine Urobilinogen 1.0 mg/dL (<2.0) Leukocyte Esterase Rfl 1+ H LOURDES/UL (Negative) Urine RBC >100 H /hpf (0-2) Urine WBC 21-50 H /hpf (0-3) Ur Squamous Epith Cells None seen /hpf (Few) Urine Bacteria 2+ /hpf Urine Casts 0-2 Patient hx anesthesia problems: none Family hx anesthesia problems: none Results Review: All pre-operative results and documents have been reviewed as part of the pre- operative evaluation. [facility] Past Medical History Medical History Hyperlipidemia Anxiety Obesity Kidney stones ADHD Asthma Surgical History Surgical History No significant past surgical history Social History Social History Smoking status: Never smoker Alcohol intake: current Drinks per week: 1 Alcohol use details: 2-4/MONTH Substance use: current Substance use type: marijuana Last use: 12/20/22 Living arrangements: with family Spiritual care concerns: No Anes - Eval Final PreProcedure Day of Procedure 06/04/24 07:59 Patient weight: obese Heart: regular rate and rhythm Lungs: clear to auscultation Airway: Mallampati scale class II Neurological: alert and oriented Last oral intake: >/= 8 hours ASA classification: III Emergent: no Anesthetic plan: proceed Anesthesia type and monitoring: general LMA and standard monitoring Results Review: All pre-operative results and documents have been reviewed as part of the pre- operative evaluation. Informed Consent: The patient's anesthetic plan and its attendant risks and benefits were discussed with the patient/family/POA. Questions were solicited and answers provided to the satisfaction of the patient/family/POA.
[2024-06-04] MEDS: LACTATED RINGERS 1,000 ML 30 ML IV CONT (08:45)
--- NOTE | 2024-06-04 09:22 | WPDURCON ---
Assessment and Plan Assessment and plan (1) Left renal stone: Code(s): N20.0 - Calculus of kidney Status: Acute (2) Left ureteral stone: Code(s): N20.1 - Calculus of ureter Status: Acute Plan 24-year-old male with a history of left nephrolithiasis, now with obstructing left ureteral stone --patient states significant pain and would like to move forward with left ureteral stent insertion. Risks, benefits, alternatives discussed and he understands he will need definitive stone management at a later date. Risks of procedure including not limited to infection, bleeding, pain, inability to place stent, need for percutaneous access, complication anesthesia. He understands and had time to ask questions --plan cystoscopy and left ureteral stent insertion today. Urology Consult Note HPI Date Seen: 06/04/24 Requesting Physician: Aidan Maynard MD Primary Care Provider: PHYSICIAN NOT ON STAFF Consult Narrative Narrative: Jose Goyal is a 24 year old male with extensive history of nephrolithiasis. He presented to the ER today with pain on the left associated with ureteral stone. He denies fevers or chills. He denies nausea vomiting. Continues to have significant left-sided pain PMFSH Past Medical History Medical History (Updated 06/04/24 @ 09:28 by Aidan Maynard MD) Left ureteral stone Hyperlipidemia Anxiety Obesity Kidney stones ADHD Asthma Surgical History Surgical History No significant past surgical history Social History Social History Smoking status: Never smoker Alcohol intake: current Drinks per week: 1 Alcohol use details: 2-4/MONTH Substance use: current Substance use type: marijuana Last use: 12/20/22 Living arrangements: with family Spiritual care concerns: No Meds Home Medications and Allergies Home Medications ?Medication ?Instructions ?Recorded ?Confirmed ?Type alprazolam 0.25 mg tablet 0.25 mg PO PRN PRN Anxiety 12/02/20 06/04/24 History sertraline 50 mg tablet 100 mg PO HS 12/02/20 06/04/24 History acetaminophen 500 mg tablet 1,000 mg PO Q4-6H PRN PAIN 12/07/20 06/04/24 History hydrochlorothiazide 12.5 mg tablet 12.5 mg PO BID 11/07/21 06/04/24 History tamsulosin 0.4 mg capsule 0.4 mg PO DAILY 11/07/21 06/04/24 History atorvastatin 10 mg tablet 10 mg PO DAILY 12/21/22 06/04/24 History potassium citrate 15 mEq (1,620 15 meq PO BID 12/21/22 06/04/24 History mg) tablet,extended release linaclotide 72 mcg capsule 72 mcg PO DAILY 03/06/23 06/04/24 History (Linzess) ondansetron 4 mg disintegrating 4 mg PO Q8H 03/06/23 06/04/24 History tablet naproxen sodium 550 mg tablet 550 mg PO Q12H PRN pain #14 tabs 05/20/24 06/04/24 Rx (Anaprox DS) Allergies Allergy/AdvReac Type Severity Reaction Status Date / Time amoxicillin (From Augmentin) AdvReac Mild Rash Verified 06/04/24 08:50 clavulanic acid (From AdvReac Mild Rash Verified 06/04/24 08:50 Augmentin) Vital Signs Vital Signs - 24 hr 06/04/24 05:04 06/04/24 06:12 06/04/24 07:58 Temperature 36.8 C 37.1 C Pulse Rate 82 83 90 Respiratory Rate 20 17 15 Blood Pressure 148/103 H 176/104 H 149/77 H Pulse Oximetry 98 98 97 Oxygen Delivery Room Air 06/04/24 08:26 06/04/24 08:51 Temperature 36.4 C Pulse Rate 88 90 Respiratory Rate 17 20 Blood Pressure 140/86 Pulse Oximetry 99 96 Oxygen Delivery Room Air Exam Narrative: Patient is awake and alert. He is no acute distress breathing is nonlabored his abdomen is soft nontender nondistended. Results Labs 06/04/24 05:36 06/04/24 05:36 Labs: Short CBC 06/04/24 Range/Units 05:36 WBC 12.0 H (4.5-10.0) K/mm3 Hgb 14.2 (14.0-18.0) g/dL Hct 42.7 (42.0-52.0) % Plt Count 298 (150-375) k/mm3 BMP 06/04/24 05:36 Sodium 140 Potassium 3.8 Chloride 102 Carbon Dioxide 25 BUN 19 Creatinine 0.90 Glucose 134 H Calcium 9.8 Liver Function 06/04/24 Range/Units 05:36 Total Bilirubin 0.6 (0.2-1.3) mg/dL AST 36 (17-59) U/L ALT 58 H (6-50) U/L Alkaline Phosphatase 92 (38-126) U/L Albumin 4.6 (3.5-5.1) g/dL Urine 06/04/24 Range/Units 05:36 Urine Color Red H (Yellow) Urine Appearance Turbid H (Clear) Urine pH 5.5 (5.0-9.0) Ur Specific [place] 1.023 (1.001-1.035) Urine Protein 2+ H (Negative) mg/dL Urine Glucose (UA) Negative (Negative) mg/dL Imaging My impression: CT and KUB June 04, 2024 reviewed. 13mm left lower pole stone, 9mm left proximal ureteral stone Radiologist's impression: Ordering Physician: Tj Ortega MD Date of Service: 06/04/24 Procedure(s): CT abdomen pelvis [facility] Accession Number(s): [id number] cc: Tj Ortega MD~ Non-contrast CT scan of the Abdomen and Pelvis Clinical indication: Left flank pain Technique: 2.5 mm axial scans were obtained through the abdomen and pelvis without intravenous or oral contrast. Dose reduction technique was used on this scan by utilizing automated exposure control and iterative reconstruction technique. The dose-length product (DLP) was 1289.22 mGy-cm. COMPARISON: 07/17/2023 Findings: Images through the lung bases reveal calcified left basilar granuloma. There is a 7 mm round stone at the proximal left ureter with mild to moderate hydroureteronephrosis to this level. Additional irregular 9 mm nonobstructing left renal stone present. No right renal or right ureteral stone. No right hydronephrosis. There is diffuse fatty infiltration of the liver. The spleen, pancreas, gallbladder, and adrenals appear normal. There is no aortic aneurysm. There is no evidence of bowel obstruction. Images through the pelvis were performed. There is no evidence of ascites or lymphadenopathy. Urinary bladder unremarkable. No pelvic mass seen. No ascites. Impression: 7 mm proximal left ureteral stone with mild to moderate left hydroureteronephrosis to this level. Additional 9 mm irregular nonobstructing left renal stone. Diffuse fatty infiltration of the liver. Reviewed, dictated and finalized at location . Y LEVEL BUYER
--- NOTE | 2024-06-04 09:30 | WPDHPUPDATE1 ---
History and Physical Update Update Date/Time: 06/04/24 09:30 History and Physical has been reviewed, including an updated exam of the patient. There are NO changes in the patient's condition. Risks, benefits, and alternatives have been discussed and questions answered. Patient agrees to proceed with procedure.
[2024-06-04] MEDS: ceFAZolin 2 GM/D5W 50 ML 2 GM/50 ML BAG IVPB (09:33)
[2024-06-04] MEDS: LIDOCAINE 2% GEL UROJET 10 ML PKG MUCOUS MEM (09:54)
--- NOTE | 2024-06-04 10:07 | W.PM.PROC2 ---
Procedure Note - Detailed Date of Procedure 06/04/24 Pre-op Diagnosis left ureteral stone Post-op Diagnosis Same Procedure Performed cystoscopy, left retrograde pyelogram, left ureteral stent insertion Surgeon Aidan Maynard MD Anesthesia General Description of Procedure Informed consent is obtained. Patient in the operative. Given preoperative by the antibiotics. He was induced anesthesia. A 22 F cystoscope was inserted through the urethra into the bladder. With the bladder revealed no mucosal abnormalities. Patient had bilateral orthotopic orifices. Plain film revealed a left proximal ureteral stone and left lower pole stone. We cannulated the orifice retrograde pyelogram revealed moderate left hydronephrosis. We then advanced a wire beyond the level of the stone and then placed a 6 F variable length stent with a curl in the upper pole across the bladder. Bladder was emptied 10cc of lidocaine Uro jet was instilled. Patient was awakened taken to recovery room stable condition. Plan outpatient stone management in the coming weeks Implants 6F stent Complications No immediate complications Disposition PACU
--- NOTE | 2024-06-04 10:53 | SUR.PHASEI ---
1052: Removed simple mask.
[2024-06-04] MEDS: oxyCODONE HCL (*CRX) 5 MG TAB IR PO (11:40)
== END 2024-06-04 12:15 | disposition home or self-care (01) ==
LOC: ANHED 07:32 → ANHSURGERY 07:37
PROVIDERS: Emergency Provider Emergency Medicine; Visit Provider Urology
PROC: (CPT 52352; principal; 2024-06-04 10:30)
DX: N13.2 Hydronephrosis with renal and ureteral calculous obstruction (principal); F12.90 Cannabis use, unspecified, uncomplicated; E66.9 Obesity, unspecified; Z68.39 Body mass index [BMI] 39.0-39.9, adult
CPT/HCPCS: 52332; 36415; 74018; 74176; 74420; 80053; 81001; 85025; 87086; 96361; 96365; 96375; 96376; 99285; A9270; C1769; C1894; C2617; J0690; J0696; J1171; J2003; J2250; J2405; J2704; J3010; J7030; J7120; Q9966

== ENCOUNTER 2024-06-06 11:23 | Day surgery (SDC) | payer BC, SELFPAY ==
--- NOTE | 2024-06-05 11:26 | P.HP_ITS ---
History of Present Illness History of Present Illness Consent: Risks, benefits, and alternatives have been discussed and questions answered. Patient agrees to proceed with procedure. Chief complaint: Lt Ureteral and Lt Renal Kidney Stones Narrative: Jose Goyal is a 24 year old male well known with a history of recurrent urolithiasis. Recently had left stent placed for ureteral stone. Now presents for definitive left ESWL. Review of Systems Review of Systems: All systems reviewed & are unremarkable except as noted in HPI and below PMFSH Past Medical History Medical History (Updated 06/04/24 @ 09:28 by Aidan Maynard MD) Left ureteral stone Hyperlipidemia Anxiety Obesity Kidney stones ADHD Asthma Surgical History Surgical History No significant past surgical history Social History Social History Smoking status: Never smoker Alcohol intake: current Drinks per week: 1 Alcohol use details: 2-4/MONTH Substance use: current Substance use type: marijuana Last use: 12/20/22 Living arrangements: with family Spiritual care concerns: No Meds Home Medications and Allergies Home Medications ?Medication ?Instructions ?Recorded ?Confirmed ?Type alprazolam 0.25 mg tablet 0.25 mg PO PRN PRN Anxiety 12/02/20 06/04/24 History sertraline 50 mg tablet 100 mg PO HS 12/02/20 06/04/24 History acetaminophen 500 mg tablet 1,000 mg PO Q4-6H PRN PAIN 12/07/20 06/04/24 History hydrochlorothiazide 12.5 mg tablet 12.5 mg PO BID 11/07/21 06/04/24 History tamsulosin 0.4 mg capsule 0.4 mg PO DAILY 11/07/21 06/04/24 History atorvastatin 10 mg tablet 10 mg PO DAILY 12/21/22 06/04/24 History potassium citrate 15 mEq (1,620 15 meq PO BID 12/21/22 06/04/24 History mg) tablet,extended release linaclotide 72 mcg capsule 72 mcg PO DAILY 03/06/23 06/04/24 History (Linzess) ondansetron 4 mg disintegrating 4 mg PO Q8H 03/06/23 06/04/24 History tablet naproxen sodium 550 mg tablet 550 mg PO Q12H PRN pain #14 tabs 05/20/24 06/04/24 Rx (Anaprox DS) Allergies Allergy/AdvReac Type Severity Reaction Status Date / Time amoxicillin (From Augmentin) AdvReac Mild Rash Verified 06/04/24 08:50 clavulanic acid (From AdvReac Mild Rash Verified 06/04/24 08:50 Augmentin) Exam Const: General: no acute distress Resp: Effort & Inspection: normal respiratory effort GI: Inspection: non-distended GI Palp: No abdominal tenderness and No Guarding due to palpation present (GI) Auscultation: normal bowel sounds Assessment and Plan Assessment and plan (1) Left renal stone: Code(s): N20.0 - Calculus of kidney Status: Acute (2) Left ureteral stone: Code(s): N20.1 - Calculus of ureter Status: Acute Assessment and Plan: * Left ESWL
[2024-06-05 11:56] VITALS: BMI 39.6
--- NOTE | 2024-06-05 12:03 | PC.NURSE ---
Report to the Outpatient Waiting Room, entrance under the green pavilion located off [facility], at time _1230_ on date _[id number]_. Planned Procedure Time: _230pm_.? Time changes happen often and if your time is changed the preop area will call you the afternoon before. - You and your visitor will be asked to self-screen and do not enter if you have any COVID symptoms. Please call surgeon if you need to reschedule. - A mask is optional within the hospital at this time. Patients may have clear liquids (water, carbonated beverages, clear teas, apple juice) until 3 hours prior to surgery with a maximum of 20 ounces. - No food from midnight until time of surgery and no smoking, or chewing tobacco (or any form of nicotine). No chewing gum, candy or mints. Take only the following medications with a SIP of water on the morning of surgery: __Acetaminophen or tramadol if needed____ DO NOT STOP ANY OF YOUR OTHER PRESCRIPTION MEDICATIONS PRIOR TO SURGERY EXCEPT THE FOLLOWING Hold all vitamins and supplements for 3 days per anesthesiologist. Medications to discontinue per physician _None__ Date to take last dose Please no make-up, nail slovak, hairspray, perfume, deodorant, or body powder the day of surgery.? No jewelry (including any body piercings) or valuables the day of surgery, leave them at home.? Please take a shower or bath the night before, or the morning of, surgery with an antibacterial soap.? Wear comfortable, loose fitting clothing.? - Jewelry must be removed prior to entering the operating room.? Rings and piercings that are not removed may be cut off. - The hospital will not accept responsibility for valuables.? - Please leave all valuables, including medications, at home the day of surgery. If you are going home after surgery, a licensed oil transport driver must drive you home.? - NO public transportation without another adult if you receive anesthesia. - We recommend that an adult stay with you for 24 hours following discharge. - We also recommend that you do not drive, make important decision, drink alcoholic beverages, or take any drugs that were not prescribed by your health care provider for at least 24 hours after your discharge time. Follow any additional instructions given to you from your surgeon. Telephone instructions given to __Seth__and asked if any additional questions and then verbalized understanding. Patient advised to call surgeon office or pre surgery nurse liaison [phone] if any additional questions.
[2024-06-06] VITALS (13 sets, daily range): BP systolic 98–124; BP diastolic 51–87; PULSE 60–85; RESP 12–18; TEMP 36.6; O2SAT 95–100
--- NOTE | ~2024-06-06 | XR_ITS ---
XR abdomen/kub 1V 06/06/2024 12:05 Indication: Preop ESWL Procedure: KUB Comparison: Comparison to multiple prior studies sequentially, with oldest reviewed study dated 01/03. Findings: There is a left internal ureteral stent in expected position. There are multiple left renal stones. There are proximal left ureteral stones adjacent to the stent. Bowel pattern nonobstructive. Moderate colonic fecal loading. No acute osseous abnormality. Impression: 1: Left renal and proximal ureteral stones. Reviewed, dictated and finalized at location L. L BUILDER Impression: 1: Left renal and proximal ureteral stones.
--- NOTE | 2024-06-06 06:24 | WPDHPUPDATE1 ---
History and Physical Update Update Date/Time: 06/06/24 06:24 History and Physical has been reviewed, including an updated exam of the patient. There are NO changes in the patient's condition. Risks, benefits, and alternatives have been discussed and questions answered. Patient agrees to proceed with procedure.
--- OUTSIDE RECORDS SUMMARY | 2024-06-06 11:49 | XMS_ITS | Patient Health Summary ---
Author Organization [facility] Address [address] [place] [address] Care Team Providers Care Sock Knitter Name Role Phone Unavailable Primary Care Provider Unavailabl e Note from [facility],non-owned Affiliates and Associated Physician Practices is amultiple site organization consisting of ambulatory clinics and hospital sitesin [place], [place], [place] and [place]. This disclosure is being madepursuant to the Care Everywhere program and may not contain all information available regarding this patient. Last updated 18.[facility] Allergies No known active allergies Medications * [...] Comments Blood Pressure 90/56 05/01/2011 8:32 AM ACCOUNT INSTALLATION SPECIALIST Pulse 78 05/01/2011 8:32 AM ACCOUNT INSTALLATION SPECIALIST Temperature - - Respiratory Rate 18 05/01/2011 8:32 AM ACCOUNT INSTALLATION SPECIALIST Oxygen Saturation - - Inhaled Oxygen Concentration - - Weight 41.4 kg (91 lb 4.8 oz) 05/01/2011 8:32 AM ACCOUNT INSTALLATION SPECIALIST Height 131.8 cm (4' 3.89 ) 05/01/2011 8:32 AM CS T Body Mass Index 23.84 05/01/2011 8:32 AM ACCOUNT INSTALLATION SPECIALIST Procedures * LAB RESULTS ORDER(Performed 06/06/2011) * XR BONE AGE STUDY(Performed 05/01/2011) Performed for Short stature Results * LAB RESULTS ORDER (06/06/2011 4:04 PM ACCOUNT INSTALLATION SPECIALIST) Narrative Transcriptions Document, Scanned - 06/06/2011 4:04 PM CST Scanned Document LAB - THERAPEUTIC DR MAYERS MONITORING ORDERABLES * XR BONE AGE HAND AND WRIST (05/01/2011 9:39 AM ACCOUNT INSTALLATION SPECIALIST) Anatomical Region Laterality Modality Upper Extremity, Wrist / Hand Ra diographic Imaging 05/01/2011 10:4 2 AM ACCOUNT INSTALLATION SPECIALIST Narrative 05/01/2011 11:32 AM ACCOUNT INSTALLATION SPECIALIST EXAM: Bone Age Hand, male FINDINGS: Chronologic [...]
--- OUTSIDE RECORDS SUMMARY | 2024-06-06 11:49 | XMS_ITS | Referral Summary ---
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 Cohen Insurance ANTHEM ACCESS CHOICE ANTHEM ACCESS CHOICE ANTHEM ACCESS CHOICE ANTH ACCESS CHOICE Advance Directives For more information, please contact: [phone] * Full Code (Latest Code Status on File) Date Activated Date Inactivated Comments 07/15/2019 4:22 PM 07/17/2019 10:05 PM Care Teams Field Sales Executive Relationship Specialty Start Date End Date Govind Christopher MD PCP - General Critical Care Med 11/23/21 Unknown, Notinfile 11/23/21 Aidan Maynard MD Consulting Physician Urology 07/17/19
--- OUTSIDE RECORDS SUMMARY | 2024-06-06 11:49 | XMS_ITS | Clinical Summary ---
Author Organization [facility] [employer] Address [address] [place] [address] Care Team Providers Care Mushroom Growth Media Mixer Name Role Phone Unavailable Primary Care Provider Unavailabl e Source Comments [facility],non-owned Affiliates and Associated Physician Practices is amultiple site organization consisting of ambulatory clinics and hospital sitesin [place], [place], [place] and [place]. This disclosure is being madepursuant to the Care Everywhere program and may not contain all information available regarding this patient. Last updated 18.[facility] [employer] Allergies No known active allergies Medications * [...] Comments Blood Pressure 90/56 05/01/2011 8:32 AM SPECIAL DELIVERY CARRIER Pulse 78 05/01/2011 8:32 AM SPECIAL DELIVERY CARRIER Temperature - - Respiratory Rate 18 05/01/2011 8:32 AM SPECIAL DELIVERY CARRIER Oxygen Saturation - - Inhaled Oxygen Concentration - - Weight 41.4 kg (91 lb 4.8 oz) 05/01/2011 8:32 AM SPECIAL DELIVERY CARRIER Height 131.8 cm (4' 3.89 ) 05/01/2011 8:32 AM CS T Body Mass Index 23.84 05/01/2011 8:32 AM SPECIAL DELIVERY CARRIER Plan of Treatment Health Maintenance Due Date [...]
--- OUTSIDE RECORDS SUMMARY | 2024-06-06 11:49 | XMS_ITS | Referral Summary ---
Author Organization [facility] Address [address] [place] [address] Care Team Providers Care Engineer Geophysical Laboratory Name Role Phone Unavailable Primary Care Provider Unavailabl e Source Comments [facility],non-owned Affiliates and Associated Physician Practices is amultiple site organization consisting of ambulatory clinics and hospital sitesin [place], [place], [place] and [place]. This disclosure is being madepursuant to the Care Everywhere program and may not contain all information available regarding this patient. Last updated 18.[facility] [employer] Allergies No known active allergies Medications * [...] Comments Blood Pressure 90/56 05/01/2011 8:32 AM HOME HEALTH CLINICAL LIAISON Pulse 78 05/01/2011 8:32 AM HOME HEALTH CLINICAL LIAISON Temperature - - Respiratory Rate 18 05/01/2011 8:32 AM HOME HEALTH CLINICAL LIAISON Oxygen Saturation - - Inhaled Oxygen Concentration - - Weight 41.4 kg (91 lb 4.8 oz) 05/01/2011 8:32 AM HOME HEALTH CLINICAL LIAISON Height 131.8 cm (4' 3.89 ) 05/01/2011 8:32 AM CS T Body Mass Index 23.84 05/01/2011 8:32 AM HOME HEALTH CLINICAL LIAISON Plan of Treatment Not on file
--- OUTSIDE RECORDS SUMMARY | 2024-06-06 11:49 | XMS_ITS | Encounter Summary ---
Author Organization [facility] Address [address] [place] [address] Care Team Providers Care Twisting Frame Operator Name Role Phone Govind Christopher MD Primary Care Provider Encounter Details Date Type Department Care Team (Late st Contact Info) Description 2000 Outpatient Historical [facility] Pediatrics - [facility] 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 Gender Identity Not on file Sexual Orientation Not on file documented as of this encounter Plan of Treatment Upcoming Encounters Date Type Department Care Team (Late st Contact Info) Description 09/09/2024 2:00 PM CDT Office Visit [facility] Internal Medicine [facility] [address] [address] Govind Christopher MD [address] [place] [address] [address] [place] [address] documented as of this encounter Visit Diagnoses Not on filedocumented in this encounter Care Teams Twisting Frame Operator Relationship Specialty Start Date End Date Govind Christopher MD [address] [place] [address] PCP - General Internal Medicine 07/15/18 documented as of this encounter
--- OUTSIDE RECORDS SUMMARY | 2024-06-06 11:49 | XMS_ITS | Encounter Summary ---
Author Organization [facility] Address [address] [place] [address] Care Team Providers Care Vegetable Tester Name Role Phone Govind Christopher MD Primary Care Provider [phone] Encounter Details Date Type Department Care Team (Late st Contact Info) Description 2000 Outpatient Historical [facility] Pediatrics - [address] [place] [address] [facility] [address] [address] Shannon Orellana MD NO ADDRESS ON FILE Social History Tobacco Use Types Packs/Day Years Used Date Smoking Tobacco: Never Assessed Sex and Gender Information Value Date Recorded Sex Assigned at Not on file 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 Gender Identity Not on file Sexual Orientation Not on file documented as of this encounter Plan of Treatment Upcoming Encounters Date Type Department Care Team (Late st Contact Info) Description 09/09/2024 2:00 PM CDT Office Visit [facility] Internal Medicine Medical [place] [address] [facility] [address] [address] Govind Christopher MD [address] [facility] [address] [address] documented as of this encounter Visit Diagnoses Not on filedocumented in this encounter Care Teams Vegetable Tester Relationship Specialty Start Date End Date Govind Christopher MD [address] [place] [address] PCP - General Internal Medicine 07/15/18 documented as of this encounter
--- OUTSIDE RECORDS SUMMARY | 2024-06-06 11:49 | XMS_ITS | Clinical Summary ---
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 Gender Identity Male 11/25/2021 7:39 AM [...] Pneumococcal vaccine <65 (1 of 1 - PPSV23) 02/26/2006 03/13/2001, 03/13/2001, 2000, Additional history exists Regular Well Visit/Exam 18-64 02/26/2018 DTaP/Tdap/Td Vaccine (7 - Td or Tdap) 09/27/2021 09/28/2011, 09/25/2005, 09/26/2001, Additional history exists Influenza Vaccine (#1) 2023 03/07/2022 Hepatitis B Screening Completed 01/02/2001 , 2000, 2000, Additional history exists Varicella Vaccines Completed 07/17/2008, 03/10/2001 HPV Vaccines Completed 06/21/2015, 11/2014, 10/12/2014 Medical Devices Implanted Type Area Auto Clocks Repairer Device Identifier Shelf Expiration Date Model / Serial / Lot Mercaux [id number] Amplatz 8.5fr 26cm 6 Sideport Introducer Catheter String - [id number] Implanted:Qty: 1 on 07/17/2019 at [facility] [employer] 03/05/2022 [id number] / / [id number] Description:Left JJ stent pl aced by dr. Cohen Insurance [employer] ANTHEM ACCESS CHOICE ANTHEM ACCESS CHOICE Advance Directives For more information, please contact: [phone] * Full Code (Latest Code Status on File) Date Activated Date Inactivated Comments 07/15/2019 4:22 PM 07/17/2019 10:05 PM Care Teams Accident Examiner Relationship Specialty Start Date End Date Govind Christopher MD PCP - General Critical Care Med 11/23/21 Unknown, Notinfile 11/23/21 Aidan Maynard MD Consulting Physician Urology 07/17/19
--- OUTSIDE RECORDS SUMMARY | 2024-06-06 11:49 | XMS_ITS | Encounter Summary ---
Author Organization [facility] Address [address] [place] [address] Care Team Providers Care Network Field Engineer Name Role Phone Unknown, Notinfile Primary Care Provider Unavail able Govind Christopher MD Primary Care Provider [phone] Unknown, Notinfile Unavailable Unavailable Aidan Maynard MD Unavailable [phone] Encounter Details Date Type Department Care Team (Late st Contact Info) Description 07/23/2019 Telephone [facility] - Interventional Radiology [address] [place] [address] Virginia Tovar RN Social History Tobacco Use Types Packs/Day Years Used Date Smoking Tobacco: Never Smokeless Tobacco: Never Alcohol Use Standard Drinks/Week Comments Yes 0 (1 standard drink = 0.6 oz pur e alcohol) rare Sex and Gender Information Value Date Recorded Sex Assigned at Not on file Legal 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
--- OUTSIDE RECORDS SUMMARY | 2024-06-06 11:49 | XMS_ITS | Continuity of Care Document ---
Author Organization [facility] Address [address] [place] [address] Phone Care Team Providers Care Substitute Nurse Name Role Phone Martha Jacques Unavailable Unavailab [...] No Longer Active Procedures Procedure Date OFFICE [id number] BODY MASS INDEX DOCD SYST BP LT 130 MM HG DIAST BP 80-89 MM HG OFFICE [id number] BODY MASS INDEX DOCD SYST BP GE 130 - 139MM HG DIAST BP 80-89 MM HG OFFICE [id number] BODY MASS INDEX DOCD SYST BP LT 130 MM HG DIAST BP < 80 MM HG TISSUE EXAM BY PATHOLOGIST UPPER GI ENDOSCOPY BIOPSY TISSUE EXAM BY PATHOLOGIST COLONOSCOPY AND BIOPSY OFFICE [id number] BODY MASS INDEX DOCD SYST BP LT 130 MM HG DIAST BP 80-89 MM HG Advance Directives Directive Yes / No Effective Date File Name No Information Encounters Encounter Description Practice Location Reason(s) For Visit Diagnoses Date Provider Providers Copied on Encounter OFFICE [id number], [address], [place], [place], [id number] , tel: [phone] [facility] Follow up (chief complaint) Chronic constipationGastro paresis 5 Janes Thomas. [address] [place] [address], [id number] , . tel: [phone] Referring Provider: Ean [address] [facility] [address] [place], [place], [address]. tel:[phone] [facility], [address], [place], [place], [id number] , [place] tel: [phone] [facility] No Information 5 Mary Lou Muñoz. [address] [place] [address], [id number] , . tel: [phone] OFFICE ISINV-AAX-WH [facility], [address], [place], [place], [id number] , [place] tel: [phone] [facility] GI problems (chief complaint) GastroparesisChron ic constipationLower abdominal pain 4 Mary Lou Muñoz. [address] [place] [address], [id number] , . tel: [phone] Referring Provider: Govind Christopher [address] [facility] [place], [place], [address]. tel:[phone] OFFICE ZMUCE-VKG-YS [facility], [address], [place], [place], [id number] , tel: [phone] [facility] GI problems (chief complaint) Chronic nauseaWeight lossChronic constipationGastro paresis 3 Mary Lou Toni. [address] [place] [address], [id number] , . tel: [phone] Referring Provider: Martha Marrero, [address] [place] [address], [address] . tel:[phone] [facility], [address], [place], [place], [id number] , [place] tel: [phone] [facility] No Information 3 Mary Lou Toni. [address] [place] [address], [id number] , . tel: [phone] Referring Provider: Aquilino Paz S [place] [address] [facility] [address], [place], [address]. tel:[phone] [facility], [address], [place], [place], [id number] , [place] tel: [phone] [facility] No Information 3 Mary Lou Toni. [address] [place] [address], [id number] , [place]. tel:[phone] Referring Provider: Aquilino Paz S [address] [facility] [address], [place], [address]. tel:[phone] [facility], [address], [place], [place], [id number] , [place] tel: [phone] [facility] No Information 3 Mary Lou Toni. [address] [place] [address], [id number] , . tel:[phone] Referring Provider: Aquilino Paz S [address] [facility] [place], [place], [address]. tel:[phone] [facility], [address], [place], [place], [id number] , [place] tel: [phone] [facility] No Information 3 Mary Lou Muñoz. [address] [place] [address] B, [place], [place], [id number] , . tel:[phone] Referring Provider: Toni Barreto, [address] [facility] [address], [place], [address] . tel:[phone] [facility], [address], [place], [place], [address] , [place] tel:[phone] [facility] GI problems-- Diarrhea (chief complaint) Nausea vomiting and diarrheaDiarrhea, unspecifiedWeight lossLower abdominal pain 3 Mary Lou Muñoz. [address] [place] [address] B, [place], [place], [id number] , . tel:[phone] Referring Provider: Govind Christopher, [address] [facility] [address] [facility] [address] [address], [place], [address]. tel:[phone] Family History Family Member Type Diagnosis Age At Onset No Information Payers Payer name Insurance type Covered democrat ID Authoriza eduardo(s) [facility] ACCESS CHOICE [id number] Social History Type Description Quantity Date Captured [...] Protein bars and shakes make him constipated. [place] 1 and straining. GI problems--Diarrhea Over a mon of diarrhea. Has also been having episodes of vomiting. has been having chronic nausea. In past would go once every other day. When diarrhea was bad would [place] 6 and 7 and go 6-7 times [...] Lower abdominal pain Continue Linzess Related to Manufacturing Engineering Director kelly constipation Continue present yashira atmentReglan [...] Mental Status Date Cognitive Assessment Orientation - Fulda ed to time, place, person, situation. Patient Care Teams Name Effective Dates (start - stop) Status Members No Information
--- OUTSIDE RECORDS SUMMARY | 2024-06-06 11:49 | XMS_ITS | Clinical Summary ---
Author Organization [facility] Address [address] [place] [address] Phone Care Team Providers Care Mail Truck Driver Name Role Phone Govind Christopher MD Primary Care Provider [phone] Allergies Active Allergy Reactions Criticality Noted Date [...] Department Care Team Description 04/02/2024 Orders Only [facility] [address] [place] [address] Gila Jc MA Nephrolithiasis (Primary Dx) 04/02/2024 Orders Only [facility] [address] [place] [address] Jeremy Curry MD Nephrolithiasis (Primary Dx) from [...] Description 07/09/2024 11:20 AM CDT Office Visit [facility] [address] [place] [address] Jeremy Curry MD [address] [place], [place] [id number] Health Maintenance Due Date Last Done Comments Pneumococcal PPSV23 Highest Risk Adult (2 of 3 - PPSV23) 02/26/2019 03/13/2001, 2000, 2000, Additional history exists Influenza Vaccine (#1) 2023 03/07/2022 Procedures Procedure Name Priority Date/Time Associated Diagnosis Comments RENAL FUNCTION PANEL (RFP) Routine 05/08/2024 11:15 AM DENTURE MODEL MAKER Nephrolithiasis LITHOLINK 24-HOUR URINE, [place] Routine 04/28/2024 6:45 AM DENTURE MODEL MAKER Nephrolithiasis from Last 3 Months Results * Renal Function Panel (RFP) (05/08/2024 11:15 AM DENTURE MODEL MAKER) Glucose, Serum/Plasma 99 65 - 99 mg/dL [facility] ([facility]) Comment: Fasting reference interval Urea nitrogen, Serum/Plasma (BUN) 14 7 - 25 mg/dL [facility]) Creatinine, Serum/Plasma 0.83 0.60 - 1.24 mg/dL [facility] ([facility]) Estimated Glomerular Filtration Rate (eGFR) 125 > OR = 60 mL/min/1.7 3m2 [facility] ([facility]) Urea nitrogen/Creati nine, Serum/Plasma SEE NOTE: 6 - 22 (calc) [facility] ([facility]) Comment: Not Reported: BUN and Creatinine are within reference range. Sodium, Serum/Plasma 140 135 - 146 mmol/L [facility] ([facility]) Potassium, Serum/Plasma 4.3 3.5 - 5.3 mmol/L [facility] ([facility]) Chloride, Serum/Plasma 103 98 - 110 mmol/L [facility] ([facility]) Carbon dioxide CO2), total, Serum/Plasma 27 20 - 32 mmol/L [facility] ([facility]) Calcium, Serum/Plasma 9.8 8.6 - 10.3 mg/dL [facility] ([facility]) Phosphate, Serum/Plasma 3.1 2.5 - 4.5 mg/dL [facility] ([facility]) Albumin, Serum/Plasma 4.9 3.6 - 5.1 g/dL [facility]) Blood (Blood, Venous) 05/08/2024 11:15 AM DENTURE MODEL MAKER 05/08/2024 11:16 AM DENTURE MODEL MAKER Narrative Resulting Agency Comment Performing Organization Information: Site ID: Name: [facility] Address: [address] [place] [address] Director: Mila Diaz Jeremy Curry MD LAB BLOOD ORDERABLES [facility]) * (ABNORMAL) Litholink 24-Hour Urine Panel (04/28/2024 6:45 AM DENTURE MODEL MAKER) CYSTINE, URINE, QUALITATIVE CANCELED [facility] 1 Comment: [...] PDF . [facility] 1 04/28/2024 6:45 AM DENTURE MODEL MAKER 05/01/2024 11:00 PM DENTURE MODEL MAKER Narrative [facility] - 05/03/2024 2:07 AM DENTURE MODEL MAKER Performed at: [address] [id number] Expeller Operator: Eliza Leon PhD, Phone: [phone] Jeremy Curry MD LAB URINE ORDERABLES [facility] 1 from Last 3 Months Care Teams Mail Truck Driver Relationship Specialty Start Date End Date Govind Christopher MD [address] [place], [place] [address] [address] PCP - General Internal Medicine 08/05/19
--- OUTSIDE RECORDS SUMMARY | 2024-06-06 11:49 | XMS_ITS | Clinical Summary ---
Author Organization 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 [facility] [address] [place] [address] Health Maintenance Due Date Last [...] Completed 06/21/2015, 11/2014, 10/12/2014 Insurance HANSA PORTILLO [address] [employer] ACCESS CHOICE Care Teams Diesel Truck Driver Relationship Specialty Start Date End Date Govind Christopher MD [address] [place] [address] PCP - General Internal Medicine 07/15/18
--- OUTSIDE RECORDS SUMMARY | 2024-06-06 11:49 | XMS_ITS | Encounter Summary ---
Author Organization [facility] Address [address] [place] [address] Care Team Providers Care International Project Manager Name Role Phone Govind Christopher MD Primary Care Provider Encounter Details Date Type Department Care Team (Late st Contact Info) Description 01/20/2022 Abstract [facility] Internal Medicine [address] [address] Govnid Christopher MD [address] [place] [address] Social History Tobacco Use Types Packs/Day Years Used Date Smoking Tobacco: Never Smokeless Tobacco: Never Alcohol Use Standard Drinks/Week Comments No 0 (1 standard drink = 0.6 oz pur e alcohol) Sex and Gender Information Value Date Recorded Sex Assigned at Not on file Legal Sex Male 4:34 AM LOCKER ATTENDANT Gender Identity Not on file Sexual Orientation Not on file documented as of this encounter Plan of Treatment Upcoming Encounters Date Type Department Care Team (Late st Contact Info) Description 09/09/2024 2:00 PM CDT Office Visit [facility] Internal Medicine [facility] [address] [place], [place] [address] [place] [address] Govind Christopher MD [address] [place] [address] documented as of this encounter Visit Diagnoses Not on filedocumented in this encounter Additional Health Concerns Assessment Noted Time PHQ-9 Depression Total Score: 1 11/09/19 22 10:39 AM CDT documented as of this encounter Care Teams International Project Manager Relationship Specialty Start Date End Date Govind Christopher MD [address] [place] [address] PCP - General Internal Medicine 07/15/18 documented as of this encounter
--- OUTSIDE RECORDS SUMMARY | 2024-06-06 11:49 | XMS_ITS | Encounter Summary ---
Author Organization [facility] Address [address] [facility] Attn: [place] [address] Care Team Providers Care Mass Spectrometry Manager Name Role Phone Govind Christopher MD Primary Care Provider Encounter Details Date Type Department Care Team (Late st Contact Info) Description 2000 Inpatient Historical Shannon Orellana MD NO ADDRESS ON FILE Yadira Pinzon MD [address] [place] [address] [place] [address] Twin, mate liveborn, born in hospital, delivered by delivery (Primary Dx) Social History Tobacco Use Types Packs/Day Years Used Date Smoking Tobacco: Never Assessed Sex and Gender Information Value Date Recorded Sex Assigned at Not on file Legal Sex Male 4:34 AM 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 Gender Identity Not on file Sexual Orientation Not on file documented as of this encounter Plan of Treatment Upcoming Encounters Date Type Department Care Team (Late st Contact Info) Description 09/09/2024 2:00 PM CDT Office Visit [facility] Internal Medicine Medical [place] [facility] [address] [facility] [address] [place] [address] Govind Christopher MD [address] [place] [address] [address] [place] [address] documented as of this encounter Visit Diagnoses Diagnosis Twin, mate liveborn, born in hospital, delivered by delivery- Primary documented in this encounter Care Teams Mass Spectrometry Manager Relationship Specialty Start Date End Date Govind Christopher MD [address] [place] [address] PCP - General Internal Medicine 07/15/18 documented as of this encounter
--- OUTSIDE RECORDS SUMMARY | 2024-06-06 11:49 | XMS_ITS | Encounter Summary ---
Author Organization [facility] Address [address] [place] [address] Care Team Providers Care Light Fixture Servicer Name Role Phone Govind Christopher MD Primary Care Provider [phone] Encounter Details Date Type Department Care Team (Late st Contact Info) Description 2000 Outpatient Historical [facility] Pediatrics - [facility] [address] [facility] [address] [address] Bright Joy MD [address] [place] [address] [address] [address] Social History Tobacco Use Types Packs/Day Years Used Date Smoking Tobacco: Never Assessed Sex and Gender Information Value Date Recorded Sex Assigned at Not on file Legal Sex Male 4:34 AM ADMINISTRATIVE SUPPORT MANAGER Gender Identity Not on file Sexual Orientation Not on file documented as of this encounter Plan of Treatment Upcoming Encounters Date Type Department Care Team (Late st Contact Info) Description 09/09/2024 2:00 PM CDT Office Visit [facility] Internal Medicine [facility] [address] [facility] [address] [address] Govind Christopher MD [address] [place] [address] [address] [place] [address] documented as of this encounter Visit Diagnoses Not on filedocumented in this encounter Care Teams Light Fixture Servicer Relationship Specialty Start Date End Date Govind Christopher MD [address] [place] [address] PCP - General Internal Medicine 07/15/18 documented as of this encounter
--- NOTE | 2024-06-06 11:51 | P.PNAN_ITS ---
Anes - Initial Pre Proc Eval Procedure: Operation Date: 06/06/24 13:30 Proposed Procedures p Left Extracorporeal Shock Wave Lithotripsy - Abdiel Rodarte MD Date/Time: 06/06/24 11:51 Surgeon: Abdiel Rodarte MD Pre Op Diagnosis: Lt Ureteral and Lt Renal Kidney Stones Patient Data Age: 24 Gender: M Height: 1.6 m Weight: 101.4 kg Allergies Allergy/AdvReac Type Severity Reaction Status Date / Time amoxicillin (From Augmentin) AdvReac Mild Rash Verified 06/05/24 11:54 clavulanic acid (From AdvReac Mild Rash Verified 06/05/24 11:54 Augmentin) Home Medications ?Medication ?Instructions ?Recorded ?Confirmed ?Type alprazolam 0.25 mg tablet 0.25 mg PO PRN PRN Anxiety 12/02/20 06/05/24 History sertraline 50 mg tablet 100 mg PO HS 12/02/20 06/05/24 History acetaminophen 500 mg tablet 1,000 mg PO Q4-6H PRN PAIN 12/07/20 06/05/24 History hydrochlorothiazide 12.5 mg tablet 12.5 mg PO BID 11/07/21 06/05/24 History tamsulosin 0.4 mg capsule 0.4 mg PO DAILY 11/07/21 06/05/24 History atorvastatin 10 mg tablet 10 mg PO DAILY 12/21/22 06/05/24 History potassium citrate 15 mEq (1,620 15 meq PO BID 12/21/22 06/05/24 History mg) tablet,extended release linaclotide 72 mcg capsule 72 mcg PO DAILY 03/06/23 06/05/24 History (Linzess) ondansetron 4 mg disintegrating 4 mg PO Q8H 03/06/23 06/05/24 History tablet tramadol 50 mg tablet 50 mg PO Q6-8H PRN pain 06/05/24 06/05/24 History Patient hx anesthesia problems: none Family hx anesthesia problems: none Results Review: All pre-operative results and documents have been reviewed as part of the pre- operative evaluation. [facility] Past Medical History Medical History (Updated 06/06/24 @ 07:21 by Govind Fernando DO) Panic attack Left ureteral stone Hyperlipidemia Anxiety Obesity Kidney stones ADHD Asthma Surgical History Surgical History No significant past surgical history Social History Social History Smoking status: Never smoker Alcohol intake: current Drinks per week: 1 Alcohol use details: 2-4/MONTH Substance use: current Substance use type: marijuana Other substance usage details: daily or every other day. Last use: 12/20/22 Living arrangements: with family Spiritual care concerns: No Anes - Eval Final PreProcedure Day of Procedure 06/06/24 11:51 Patient weight: obese Heart: regular rate and rhythm Lungs: clear to auscultation Airway: Mallampati scale class II Neurological: alert and oriented Last oral intake: >/= 8 hours ASA classification: III Emergent: no Anesthetic plan: proceed Anesthesia type and monitoring: general LMA and standard monitoring Results Review: All pre-operative results and documents have been reviewed as part of the pre- operative evaluation. Informed Consent: The patient's anesthetic plan and its attendant risks and benefits were discussed with the patient/family/POA. Questions were solicited and answers provided to the satisfaction of the patient/family/POA.
[2024-06-06] MEDS: LACTATED RINGERS 1,000 ML 30 ML IV CONT ×2 (12:00→15:03)
[2024-06-06] MEDS: fentaNYL CITRATE INJ (*CRX) 100 MCG/2 ML VIAL 50 MCG IV PUSH (12:50)
[2024-06-06] MEDS: ONDANSETRON INJ 4 MG/2 ML VIAL IV PUSH (12:50)
[2024-06-06 12:56] LABS: INR 0.9; Prothrombin Time 12.5 Seconds (11.1-14.7)
[2024-06-06 12:57] LABS: Partial Thromboplastin Time 28.1 Seconds (22.3-36.8)
[2024-06-06] MEDS: ceFAZolin 2 GM/D5W 50 ML 2 GM/50 ML BAG IVPB (13:25)
--- NOTE | 2024-06-06 13:54 | W.PM.PROC2 ---
Procedure Note - Detailed Date of Procedure 06/06/24 Pre-op Diagnosis Left ureteral and renal stones Post-op Diagnosis Same Procedure Performed Left ESWL Surgeon Abdiel Rodarte MD Anesthesia General Description of Procedure The patient was brought to the operative suite where he was placed in the supine position on the Dornier lithotripsy table. The focal point of the lithotripter was placed at a 6-7mm left proximal ureteral calculus. A total of 3000 shocks were delivered at a power setting of 1-5. There appeared to be good fragmentation of the stone late in the procedure. Due to proximity to the kidney we were not able to treat the stone in left lower pole. The patient tolerated the procedure well and was taken to the recovery room in good condition. Drains No Pathology None sent Condition Stable Disposition PACU
[2024-06-06] MEDS: fentaNYL CITRATE INJ (*CRX) 100 MCG/2 ML VIAL 25 MCG IV PUSH (15:32)
[2024-06-06] MEDS: KETOROLAC 30 MG/ML VIAL (*BKC) IV PUSH (15:41)
[2024-06-06] MEDS: oxyCODONE HCL (*CRX) 5 MG TAB IR PO (16:07)
== END 2024-06-06 16:54 | disposition home or self-care (01) ==
PROVIDERS: Visit Provider Urology
PROC: (CPT 50590; principal; 2024-06-06 13:30)
DX: N20.2 Calculus of kidney with calculus of ureter (principal); E78.5 Hyperlipidemia, unspecified; F41.9 Anxiety disorder, unspecified; J45.909 Unspecified asthma, uncomplicated; F90.9 Attention-deficit hyperactivity disorder, unspecified type; F41.0 Panic disorder [episodic paroxysmal anxiety]; F12.90 Cannabis use, unspecified, uncomplicated; E66.9 Obesity, unspecified; Z68.39 Body mass index [BMI] 39.0-39.9, adult; Z79.891 Long term (current) use of opiate analgesic; Z79.1 Long term (current) use of non-steroidal anti-inflammatories (NSAID); Z98.890 Other specified postprocedural states; Z96.0 Presence of urogenital implants
CPT/HCPCS: 50590; 36415; 74018; 85610; 85730; A9270; J0690; J1100; J1885; J2250; J2405; J2704; J3010; J7120

== ENCOUNTER 2024-06-17 07:22 | Outpatient (CLI) | payer BC, SELFPAY | END 2024-06-17 07:23 | disposition home or self-care (01) | LOC: ANHIMG 07:23 | PROVIDERS: Visit Provider Urology | DX: N20.1 Calculus of ureter (principal) | CPT/HCPCS: 74018 ==

== ENCOUNTER 2024-08-25 14:48 | Outpatient (CLI) | payer BC, SELFPAY ==
--- OUTSIDE RECORDS SUMMARY | 2024-08-25 14:52 | XMS_ITS | Clinical Summary ---
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 Gender Identity Male 11/25/2021 7:39 AM CDT [...] 09/25/2005, 09/26/2001, Additional history exists Influenza Vaccine (Season Ended) 2024 03/07/20 Hepatitis B Screening Completed 01/02/2001 , 2000, 2000, Additional history exists Varicella Vaccines Completed 07/17/2008, 03/10/2001 HPV Vaccines Completed 06/21/2015, 11/2014, 10/12/2014 Medical Devices Implanted Type Area Superintendent Greens Device Identifier Shelf Expiration Date Model / Serial / Lot [employer] [id number] Amplatz 8.5fr 26cm 6 Sideport Introducer Catheter String - [id number] Implanted:Qty: 1 on 07/17/2019 at [facility] [employer] 03/05/2022 [id number] / / [id number] Description:Left JJ stent pl aced by dr. Cohen Insurance ANTHEM ACCESS CHOICE [employer] ACCESS CHOICE [employer] ACCESS CHOICE CaseReader CHOICE Advance Directives For more information, please contact: [phone] * Full Code (Latest Code Status on File) Date Activated Date Inactivated Comments 07/15/2019 4:22 PM 07/17/2019 10:05 PM Care Teams Plate Grainer Relationship Specialty Start Date End Date Govind Christopher MD PCP - General Critical Care Med 11/23/21 Unknown, Notinfile 11/23/21 Aidan Maynard MD Consulting Physician Urology 07/17/19
--- OUTSIDE RECORDS SUMMARY | 2024-08-25 14:52 | XMS_ITS | Encounter Summary ---
Author Organization [facility] Address [address] [place] [address] Care Team Providers Care Recreation Programmer Name Role Phone Govind Christopher MD Primary Care Provider Encounter Details Date Type Department Care Team (Late st Contact Info) Description 01/20/2022 Abstract [facility] Internal Medicine [address] [address] Govind Christopher MD [address] [place] [address] Social History Tobacco Use Types Packs/Day Years Used Date Smoking Tobacco: Never Smokeless Tobacco: Never Alcohol Use Standard Drinks/Week Comments No 0 (1 standard drink = 0.6 oz pur e alcohol) Sex and Gender Information Value Date Recorded Sex Assigned at Not on file Legal 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 Male 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 Gender Identity Not on file Sexual Orientation Not on file documented as of this encounter Plan of Treatment Upcoming Encounters Date Type Department Care Team (Late st Contact Info) Description 09/09/2024 2:00 PM CDT Office Visit [facility] Internal Medicine [facility] [address] [place], [place] [address] [place] [address] Govind Christopher MD [address] [place] [address] documented as of this encounter Visit Diagnoses Not on filedocumented in this encounter Additional Health Concerns Assessment Noted Time PHQ-9 Depression Total Score: 1 11/09/19 22 10:39 AM CDT documented as of this encounter Care Teams Recreation Programmer Relationship Specialty Start Date End Date Govind Christopher MD [address] [place] [address] PCP - General Internal Medicine 07/15/18 documented as of this encounter
--- OUTSIDE RECORDS SUMMARY | 2024-08-25 14:53 | XMS_ITS | Clinical Summary ---
Author Organization [facility] Address [address] [place] [address] Phone Care Team Providers Care Storyboard Artist Name Role Phone Govind Christopher MD Primary Care Provider [phone] Allergies Active Allergy Reactions Criticality Noted Date [...] BEFORE FIRST MEAL OF THE DAY Active sertraline (ZOLOFT) 100 mg tablet Take 1 Tablet (100 mg) by mouth daily. 100 Tablet 3 4 Active atorvastatin (LIPITOR) 10 mg tablet TAKE 1 TABLET (10 MG) BY MOUTH DAILY. 100 Tablet 3 5 Active ALPRAZolam (XANAX) 0.25 mg tabletIndication s:Acute reaction to situational stress Take 1 Tablet (0.25 mg) by mouth 1 time daily as needed for Anxiety. 30 Tablet 5 5 Active dexmethylphenida te (Focalin) 10 mg tabletIndication s:Attention deficit Take 1 Tablet (10 mg) by mouth 2 times daily. 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 Observation recommended. Generalized anxiety disorder 09/02/2019 High cholesterol 11/25/2014 Encounters Date Type Department Care Team Description 07/18/2024 [facility] Internal Medicine [facility] [address] [address] Govind Christopher MD Acute reaction to situational stress; Attention deficit 06/24/2024 External Device Data STL ABSTRACTION Provider, Abstract 06/24/2024 External Device Data STL ABSTRACTION Provider, Abstract 06/22/2024 [facility] Internal Medicine [facility] [address] [address] Govind Christopher MD 06/21/2024 External Device Data STL ABSTRACTION Provider, Abstract 06/20/2024 External Device Data STL ABSTRACTION Provider, Abstract 06/10/2024 External Device Data STL ABSTRACTION Provider, Abstract [...] Hepatitis A Vaccine 07/17/2008,09/25/2005 Hepatitis B Vaccine 01/02/2001,2000,11/14/ 2000 Influenza Seasonal Unspecifi ed Formulation IM 03/07/2022 [...] on file 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 [facility] [address] [address] Health Maintenance Due Date Last Done Comments DTAP/TDAP/TD VACCINES (7 - T d or Tdap) 09/27/2021 09/28/2011, 09/25/2005, 09/26/2001, Additional history exists INFLUENZA VACCINE (#1) 2023 09/04/2023, 2021 COVID-19 Vaccine (2023-2 5 season) 2023 03/07/2022, 07/24/2020 Preventative Visit- Commercial 04/16/2024 0 09/04/2023, 08/21/2022, 08/21/2022, Additional history exists HEPATITIS B VACCINES Completed 01/02/2001, 2000, 2000 HPV VACCINES Completed 06/21/2015, 11/2014, 10/12/[address] [employer] ACCESS CHOICE Care Teams Storyboard Artist Relationship Specialty Start Date End Date Govind Christopher MD [address] [place], [place] [address] [place] [address] PCP - General Internal Medicine 07/15/18
--- OUTSIDE RECORDS SUMMARY | 2024-08-25 14:53 | XMS_ITS | Encounter Summary ---
Author Organization [facility] Address [address] [place] [address] Care Team Providers Care Import Export Coordinator Name Role Phone Govind Christopher MD Primary Care Provider Encounter Details Date Type Department Care Team (Late st Contact Info) Description 2000 Outpatient Historical [facility] Pediatrics - Medical [place] [address] [address] Bright Joy MD NO ADDRESS ON FILE Social History Tobacco Use Types Packs/Day Years Used Date Smoking Tobacco: Never Assessed Sex and Gender Information Value Date Recorded Sex Assigned at Not on file 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 Gender Identity Not on file Sexual Orientation Not on file documented as of this encounter Plan of Treatment Upcoming Encounters Date Type Department Care Team (Late st Contact Info) Description 09/09/2024 2:00 PM CDT Office Visit [facility] Internal Medicine Medical [place] [facility] [address] [address] Govind Christopher MD [address] [address] documented as of this encounter Visit Diagnoses Not on filedocumented in this encounter Care Teams Import Export Coordinator Relationship Specialty Start Date End Date Govind Christopher MD [address] [place], [place] [address] [place] [address] PCP - General Internal Medicine 07/15/18 documented as of this encounter
--- OUTSIDE RECORDS SUMMARY | 2024-08-25 14:53 | XMS_ITS | Encounter Summary ---
Author Organization [facility] Address [address] [place] [address] Care Team Providers Care Ingot Stripper Name Role Phone Unknown, Notinfile Primary Care Provider Unavail able Govind Christopher MD Primary Care Provider [phone]- [phone] Unknown, Notinfile Unavailable Unavailable Aidan Maynard MD Unavailable [phone] Encounter Details Date Type Department Care Team (Late st Contact Info) Description 07/23/2019 Telephone [facility] - Interventional Radiology [address] [place] [address] Virginia Tovar RN Social History Tobacco Use Types Packs/Day Years Used Date Smoking Tobacco: Never Smokeless Tobacco: Never Alcohol Use Standard Drinks/Week Comments Yes 0 (1 standard drink = 0.6 oz pur e alcohol) rare Sex and Gender Information Value Date Recorded Sex Assigned at Not on file 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
--- OUTSIDE RECORDS SUMMARY | 2024-08-25 14:53 | XMS_ITS | Encounter Summary ---
Author Organization [facility] Address [address] [place] [address] Care Team Providers Care Used Car Lot Porter Name Role Phone Govind Christopher MD Primary Care Provider Encounter Details Date Type Department Care Team (Late st Contact Info) Description 2000 Outpatient Historical [facility] Pediatrics - Medical [place] [address] [facility] [address] [address] Bright Joy MD NO ADDRESS ON FILE Social History Tobacco Use Types Packs/Day Years Used Date Smoking Tobacco: Never Assessed Sex and Gender Information Value Date Recorded Sex Assigned at Not on file Legal Sex Male 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 CLINICAL APPEALS 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 Gender Identity Not on file Sexual Orientation Not on file documented as of this encounter Plan of Treatment Upcoming Encounters Date Type Department Care Team (Late st Contact Info) Description 09/09/2024 2:00 PM CDT Office Visit [facility] Internal Medicine Medical [place] [facility] [address] [facility] [facility] [address] [address] Govind Christopher MD [address] [facility] [address] [address] documented as of this encounter Visit Diagnoses Not on filedocumented in this encounter Care Teams Used Car Lot Porter Relationship Specialty Start Date End Date Govind Christopher MD [address] [place], [place] [address] [address] PCP - General Internal Medicine 07/15/18 documented as of this encounter
--- OUTSIDE RECORDS SUMMARY | 2024-08-25 14:53 | XMS_ITS | Clinical Summary ---
Author Organization [facility] Address [address] [place] [address] Phone Care Team Providers Care Rope Twisting Machine Operator Name Role Phone Govind Christopher MD Primary Care Provider [phone] Allergies Active Allergy Reactions Criticality Noted Date Comments Amoxicillin-Pot Clavulanate Hives,Rash High 11/04/19 15 Medications sertraline (ZOLOFT) 50 MG tablet Take 100 mg by mouth 1 (one) time each day 08/19/2021 Active ALPRAZolam (XANAX) 0.25 MG tablet TAKE 1 TABLET BY MOUTH 1 TIME DAILY NEEDED FOR ANXIETY. 08/21/2021 Active atorvastatin (LIPITOR) 10 MG tablet Take 10 mg by mouth in the morning. 11/17/2021 Active dexmethylphenida te (FOCALIN) 10 MG tablet Take 10 mg by mouth in the morning and 10 mg in the evening. 03/27/2022 Active ondansetron ODT (ZOFRAN-ODT) 4 MG dispersible tablet Take 8 mg by mouth 1 (one) time each day if needed 11/08/2022 Active linaCLOtide (Linzess) 72 MCG capsule Take 1 capsule by mouth 1 (one) time each day Active potassium citrate (UROCIT-K) 15 mEq SR tablet TAKE 1 TABLET BY MOUTH IN THE MORNING AND 1 TABLET IN THE EVENING. 180 tablet 2 01/28/2024 Active hydroCHLOROthiaz rox (HYDRODIURIL) 25 MG tablet Take 1 tablet (25 mg total) by mouth 1 (one) time each day 30 tablet 11 07/09/2024 Active Active Problems Problem Noted Date Diagnosed Date Nephrolithiasis 11/28/2023 Obesity associated disorder 11/28/2023 Assessment & Plan (11/28/2023 9:08 PM CDT): Continued efforts to lose weight Encounters Date Type Department Care Team Description 07/09/2024 11:20 AM CDT Office Visit [facility] [address] [place] [address] Jeremy Curry MD Nephrolithiasis (Primary Dx); 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 Orders Only [facility] [address] [place] [address] Naya Palacio MA Nephrolithiasis (Primary Dx) from Last 3 Months Immunizations Immunization Administration Dates Next Due DTaP 09/25/2005, 2,2000,2000 ,2000 HPV, Quadrivalent 06/21/2015,12/22/2014,10/13/19 15 Hepatitis A 07/17/2008,09/25/2005 Hepatitis B 01/02/2001,2000,2000 Hib (PRP-T) 05/29/2001,01/02/2001,2000 ,2000 IPV 09/25/2005,09/11/2001,2000 ,2000 Influenza TIV (IM) 03/07/2022 MMR 09/25/2005,05/29/2001 Meningococcal MCV4P 11/27/2017,09/28/2011 Pneumococcal Conjugate 13-Valent 03/13/2001,08/14,2000,2000 Tdap 09/28/2011 Varicella 07/17/2008,03/10/2001 Social History Tobacco Use Types Packs/Day Years Used Date Smoking Tobacco: Never Smokeless Tobacco: Never Tobacco Cessation:Counseling Given: Not Answered Sex and Gender Information Value Date Recorded Sex Assigned at Not on file Legal Sex Male 9:27 AM MDT Gender Identity Not on file Sexual Orientation Not on file Last Filed Vital Signs Vital Sign Reading Time Taken Comments Blood Pressure 139/94 07/09/2024 11:23 AM CDT Pulse 95 07/09/2024 11:23 AM CDT Temperature - - Respiratory Rate - - Oxygen Saturation - - Inhaled Oxygen Concentration - - Weight 103 kg (228 lb) 07/09/2024 11:23 AM CDT Height 160 cm (5' 3 ) 07/09/2024 11:23 AM CDT Body Mass Index 40.39 07/09/2024 11:23 AM CDT Plan of Treatment Upcoming Encounters Date Type Department Care Team (Late st Contact Info) Description 01/12/2025 1:00 PM CDT Office Visit [facility] [address] [place] [address] Gurdeep Cardoza PA [address] [place] [address] 11/10/2025 9:00 AM CDT Office Visit [facility] [address] [place], [place] [id number] Jeremy Curry MD [address] [place] [address] Health Maintenance Due Date Last Done Comments Pneumococcal PPSV23 Highest Risk Adult (2 of 3 - PPSV23) 02/26/2019 03/13/2001, 2000, 2000, Additional history exists Influenza Vaccine (Season Ended) 2024 03/07/20 22 Insurance ([facility]) Care Teams Rope Twisting Machine Operator Relationship Specialty Start Date End Date Govind Christopher MD [address] [place] [address] PCP - General Internal Medicine 08/05/19
--- OUTSIDE RECORDS SUMMARY | 2024-08-25 14:53 | XMS_ITS | Clinical Summary ---
Author Organization [facility] Address [address] [facility] [place] [address] Care Team Providers Care Knitting Supervisor Name Role Phone Unavailable Primary Care Provider Unavailabl e Source Comments [facility],non-owned Affiliates and Associated Physician Practices is amultiple site organization consisting of ambulatory clinics and hospital sitesin [place], [place], [place] and [place]. This disclosure is being madepursuant to the Care Everywhere program and may not contain all information available regarding this patient. Last updated 18.[facility] Allergies No known active allergies Medications * Be aware that medications may not be up to date on this document. Alwaysverify current medications with the patient. dexmethylphenidat e CR 24hr (FOCALIN XR) 20 MG capsule Take 20 mg by mouth every morning. Active oxybutynin (DITROPAN) 5 MG tablet Take 5 mg by mouth once daily. Active Nutritional Supplements (MELATONIN PO) Take by mouth. Active Polyethylene Glycol 3350 (MIRALAX PO) Take by mouth. 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 Gender Identity Not on file Sexual Orientation Not on file Last Filed Vital Signs Vital Sign Reading Time Taken Comments Blood Pressure 90/56 05/01/2011 8:32 AM SINGE MACHINE OPERATOR Pulse 78 05/01/2011 8:32 AM SINGE MACHINE OPERATOR Temperature - - Respiratory Rate 18 05/01/2011 8:32 AM SINGE MACHINE OPERATOR Oxygen Saturation - - Inhaled Oxygen Concentration - - Weight 41.4 kg (91 lb 4.8 oz) 05/01/2011 8:32 AM SINGE MACHINE OPERATOR Height 131.8 cm (4' 3.89 ) 05/01/2011 8:32 AM CS T Body Mass Index 23.84 05/01/2011 8:32 AM SINGE MACHINE OPERATOR Plan of Treatment Health Maintenance Due Date Last Done Comments HIV SCREENING 02/26/2015 HPV VACCINE (1 - Male 3-dose series) 02/26/2015 HEPATITIS C SCREENING 02/22/2018 DTAP/TDAP/TD VACCINES (1 - Tdap) 02/26/2019 HEPATITIS B VACCINE (1 of 3 - 19+ 3-dose series) 02/26/2019 COVID-19 VACCINE (1 - 2023-2 5 season) 2023 DEPRESSION SCREENING 04/16/2024 INFLUENZA VACCINE (Season Ended) 2024 ZOSTER VACCINE (1 of 2) 02/26/2050 HIB VACCINE Aged Out No longer eligi ble based on patient's age to complete this topic MENINGOCOCCAL (Group B) VACC INE SHARED DECISION-MAKING Aged Out No longer eligibl e based on patient's age to complete this topic MENINGOCOCCAL GROUPS A/C/Y/W VACCINE Aged Out No longer eligible b ased on patient's age to complete this topic PNEUMOCOCCAL VACCINE Aged Out No long er eligible based on patient's age to complete this topic Insurance ROBERTO
--- OUTSIDE RECORDS SUMMARY | 2024-08-25 14:53 | XMS_ITS | Encounter Summary ---
Author Organization [facility] Address [address] Attn: [place] [address] Care Team Providers Care Fx Artist Name Role Phone Govind Christopher MD Primary Care Provider Encounter Details Date Type Department Care Team (Late st Contact Info) Description 2000 Inpatient Historical Shannon Orellana MD NO ADDRESS ON FILE Yadira Pinzon MD [address] [place] [address] [place] [address] Twin, mate liveborn, born in hospital, delivered by delivery (Primary Dx) Social History Tobacco Use Types Packs/Day Years Used Date Smoking Tobacco: Never Assessed Sex and Gender Information Value Date Recorded Sex Assigned at Not on file 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 Gender Identity Not on file Sexual Orientation Not on file documented as of this encounter Plan of Treatment Upcoming Encounters Date Type Department Care Team (Late st Contact Info) Description 09/09/2024 2:00 PM CDT Office Visit [facility] Internal Medicine Medical [place] [facility] [address] [place] [address] Govind Christopher MD [address] [place] [address] [address] [place] [address] documented as of this encounter Visit Diagnoses Diagnosis Twin, mate liveborn, born in hospital, delivered by delivery- Primary documented in this encounter Care Teams Fx Artist Relationship Specialty Start Date End Date Govind Christopher MD [address] [place] [address] PCP - General Internal Medicine 07/15/18 documented as of this encounter
--- OUTSIDE RECORDS SUMMARY | 2024-08-25 14:53 | XMS_ITS | Encounter Summary ---
Author Organization [facility] Address [address] [place] [address] Care Team Providers Care Claim Attorney Name Role Phone Govind Christopher MD Primary Care Provider Encounter Details Date Type Department Care Team (Late st Contact Info) Description 2000 Outpatient Historical [facility] - [facility] [place] [address] [address] Shannon Orellana MD NO ADDRESS ON FILE Social History Tobacco Use Types Packs/Day Years Used Date Smoking Tobacco: Never Assessed Sex and Gender Information Value Date Recorded Sex Assigned at Not on file 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 Gender Identity Not on file Sexual Orientation Not on file documented as of this encounter Plan of Treatment Upcoming Encounters Date Type Department Care Team (Late st Contact Info) Description 09/09/2024 2:00 PM CDT Office Visit [facility] Internal Medicine Medical [place] [facility] [address] [address] Govind Christopher MD [address] [address] documented as of this encounter Visit Diagnoses Not on filedocumented in this encounter Care Teams Claim Attorney Relationship Specialty Start Date End Date Govind Christopher MD [address] [place] [address] PCP - General Internal Medicine 07/15/18 documented as of this encounter
--- OUTSIDE RECORDS SUMMARY | 2024-08-25 14:53 | XMS_ITS | Referral Summary ---
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 Cohen Insurance [facility] ACCESS CHOICE ANTH ACCESS CHOICE Advance Directives For more information, please contact: [phone] * Full Code (Latest Code Status on File) Date Activated Date Inactivated Comments 07/15/2019 4:22 PM 07/17/2019 10:05 PM Care Teams Transportation Maintenance Worker Relationship Specialty Start Date End Date Govind Christopher MD PCP - General Critical Care Med 11/23/21 Unknown, Notinfile 11/23/21 Aidan Maynard MD Consulting Physician Urology 07/17/19
== END 2024-08-25 14:49 | disposition home or self-care (01) ==
LOC: ANHLAB 14:50
PROVIDERS: Visit Provider Urology
DX: N20.1 Calculus of ureter (principal)
CPT/HCPCS: 87086

== ENCOUNTER 2024-08-29 00:16 | Day surgery (SDC) | payer BC, SELFPAY ==
[2024-08-20 10:48] VITALS: BMI 39.4
--- NOTE | 2024-08-20 10:50 | PC.NURSE ---
Report to the Outpatient Waiting Room, entrance under the green pavilion located off [facility], at time _0730_ on date _[id number]_. Planned Procedure Time: _0930_. Time changes happen often and if your time is changed the preop area will call you the afternoon before. - You and your visitor will be asked to self-screen and do not enter if you have any COVID symptoms. Please call surgeon if you need to reschedule. - A mask is optional within the hospital at this time. Patients may have clear liquids (water, carbonated beverages, clear teas, apple juice) until 3 hours prior to surgery with a maximum of 20 ounces. - No food from midnight until time of surgery and no smoking, or chewing tobacco (or any form of nicotine). No chewing gum, candy or mints. Take only the following medications with a SIP of water on the morning of surgery: __Alprazolam if needed.___ DO NOT STOP ANY OF YOUR OTHER PRESCRIPTION MEDICATIONS PRIOR TO SURGERY EXCEPT THE FOLLOWING Hold all vitamins and supplements for 3 days per anesthesiologist. Medications to discontinue per physician Date to take last dose Please no make-up, nail portuguese, hairspray, perfume, deodorant, or body powder the day of surgery. No jewelry (including any body piercings) or valuables the day of surgery, leave them at home. Please take a shower or bath the night before, or the morning of, surgery with an antibacterial soap. Wear comfortable, loose fitting clothing. - Jewelry must be removed prior to entering the operating room. Rings and piercings that are not removed may be cut off. - The hospital will not accept responsibility for valuables. - Please leave all valuables, including medications, at home the day of surgery. If you are going home after surgery, a licensed boat driver must drive you home. - NO public transportation without another adult if you receive anesthesia. - We recommend that an adult stay with you for 24 hours following discharge. - We also recommend that you do not drive, make important decision, drink alcoholic beverages, or take any drugs that were not prescribed by your health care provider for at least 24 hours after your discharge time. Follow any additional instructions given to you from your surgeon. Telephone instructions given to __Seth__and asked if any additional questions and then verbalized understanding. Patient advised to call surgeon office or pre surgery nurse liaison [phone] if any additional questions.
--- NOTE | 2024-08-20 11:56 | P.HP_ITS ---
History of Present Illness History of Present Illness Consent: Risks, benefits, and alternatives have been discussed and questions answered. Patient agrees to proceed with procedure. Chief complaint: left renal stone Narrative: Jose Goyal is a 24 year old male who is plagued by several recurrent stones requiring ESWL in the past. And June he underwent ESWL to an obstructing left ureteral stone and is left with residual stones in his left kidney, for which he now presents. He is aware the risk of lithotripsy including, but not limited to, need for additional procedures, hematuria, perinephric hematoma. Review of Systems Review of Systems: All systems reviewed & are unremarkable except as noted in HPI and below PMFSH Past Medical History Medical History (Updated 06/06/24 @ 07:21 by Govind Fernando DO) Panic attack Left ureteral stone Hyperlipidemia Anxiety Obesity Kidney stones ADHD Asthma Surgical History Surgical History No significant past surgical history Social History Social History Smoking status: Never smoker Alcohol intake: current Drinks per week: 1 Alcohol use details: 2-4/MONTH Substance use: current Substance use type: marijuana Other substance usage details: Sometimes daily Last use: 12/20/22 Living arrangements: with family Spiritual care concerns: No Meds Home Medications and Allergies Home Medications Medication Instructions Recorded Confirmed Type alprazolam 0.25 mg tablet 0.25 mg PO PRN PRN Anxiety 12/02/20 08/20/24 History sertraline 50 mg tablet 100 mg PO HS 12/02/20 08/20/24 History acetaminophen 500 mg tablet 1,000 mg PO Q4-6H PRN PAIN 12/07/20 08/20/24 History atorvastatin 10 mg tablet 10 mg PO DAILY 12/21/22 08/20/24 History potassium citrate 15 mEq (1,620 15 meq PO BID 12/21/22 08/20/24 History mg) tablet,extended release linaclotide 72 mcg capsule 72 mcg PO DAILY 03/06/23 08/20/24 History (Linzess) ondansetron 4 mg disintegrating 4 mg PO Q8H 03/06/23 08/20/24 History tablet tramadol 50 mg tablet 50 mg PO Q6-8H PRN pain 06/05/24 08/20/24 History hydrochlorothiazide 25 mg tablet 25 mg PO BID 08/20/24 08/20/24 History Allergies Allergy/AdvReac Type Severity Reaction Status Date / Time amoxicillin (From Augmentin) AdvReac Mild Rash Verified 08/20/24 10:40 clavulanic acid (From AdvReac Mild Rash Verified 08/20/24 10:40 Augmentin) Exam Const: General: no acute distress Resp: Effort & Inspection: normal respiratory effort GI: Inspection: non-distended GI Palp: No abdominal tenderness and No Guarding due to palpation present (GI) Auscultation: normal bowel sounds Assessment and Plan Assessment and plan (1) Left renal stone: Code(s): N20.0 - Calculus of kidney Status: Acute Assessment and Plan: * left ESWL
[2024-08-29] VITALS (8 sets, daily range): BP systolic 103–115; BP diastolic 65–79; PULSE 59–81; RESP 14–18; TEMP 36.1–36.3; O2SAT 94–99; BMI 39.6
--- NOTE | ~2024-08-29 | XR_ITS ---
XR abdomen/kub 1V 08/29/2024 06:56 Indication: Left renal stones Procedure: KUB Comparison: Comparison to multiple prior studies sequentially, with oldest reviewed study dated 08/13. Findings: There is a cluster of stones in the lower pole of the left kidney. Bowel gas pattern nonobs tructive. There is calcification in the pelvis, possibly a bladder stone. No acute osseous abnormalit y. Impression: 1: Left nephrolithiasis. 2: Possible bladder stone. Reviewed, dictated and finalized at location A. Impression: 1: Left nephrolithiasis. 2: Possible bladder stone.
--- OUTSIDE RECORDS SUMMARY | 2024-08-29 00:24 | XMS_ITS | Clinical Summary ---
Author Organization [facility] Address [address] [facility] [place] [address] Care Team Providers Care Professor Criminal Justice Name Role Phone Unavailable Primary Care Provider Unavailabl e Source Comments [facility],non-owned Affiliates and Associated Physician Practices is amultiple site organization consisting of ambulatory clinics and hospital sitesin [place], [place], [place] and [place]. This disclosure is being madepursuant to the Care Everywhere program and may not contain all information available regarding this patient. 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 Gender Identity Not on file Sexual Orientation Not on file Last Filed Vital Signs Vital Sign Reading Time Taken Comments Blood Pressure 90/56 05/01/2011 8:32 AM SCOURING MACHINE OPERATOR Pulse 78 05/01/2011 8:32 AM SCOURING MACHINE OPERATOR Temperature - - Respiratory Rate 18 05/01/2011 8:32 AM SCOURING MACHINE OPERATOR Oxygen Saturation - - Inhaled Oxygen Concentration - - Weight 41.4 kg (91 lb 4.8 oz) 05/01/2011 8:32 AM SCOURING MACHINE OPERATOR Height 131.8 cm (4' 3.89 ) 05/01/2011 8:32 AM CS T Body Mass Index 23.84 05/01/2011 8:32 AM SCOURING MACHINE OPERATOR Plan of Treatment Health Maintenance [...]
--- OUTSIDE RECORDS SUMMARY | 2024-08-29 00:24 | XMS_ITS | Encounter Summary ---
Author Organization [facility] Address [address] [place] [address] Care Team Providers Care Assembly Stock Supervisor Name Role Phone Govind Christopher MD Primary Care Provider Encounter Details Date Type Department Care Team (Late st Contact Info) Description 01/20/2022 Abstract [facility] Internal Medicine [address] [address] Govind Christopher MD [address] [place] [address] Social History Tobacco Use Types Packs/Day Years Used Date Smoking Tobacco: Never Smokeless Tobacco: Never Alcohol Use Standard Drinks/Week Comments No 0 (1 standard drink = 0.6 oz pur e alcohol) Sex and Gender Information Value Date Recorded Sex Assigned at Not on file Legal Sex Male 4:[address] PR[address] GENERAL MANAGER Gender Identity Not on file Sexual Orientation Not on file documented as of this encounter Plan of Treatment Upcoming Encounters Date Type Department Care Team (Late st Contact Info) Description 09/09/2024 2:00 PM CDT Office Visit [facility] Internal Medicine [facility] [address] [place], [place] [address] [address] Govind Christopher MD [address] [place] [address] documented as of this encounter Visit Diagnoses Not on filedocumented in this encounter Additional Health Concerns Assessment Noted Time PHQ-9 Depression Total Score: 1 11/09/19 22 10:39 AM CDT documented as of this encounter Care Teams Assembly Stock Supervisor Relationship Specialty Start Date End Date Govind Christopher MD [address] [place] [address] PCP - General Internal Medicine 07/15/18 documented as of this encounter
--- OUTSIDE RECORDS SUMMARY | 2024-08-29 00:24 | XMS_ITS | Clinical Summary ---
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 Cohen Insurance ANTHEM ACCESS CHOICE AN[employer]yzing ACCESS CHOICE [place] ACCESS CHOICE [employer] CHOICE Advance Directives For more information, please contact: [phone] * Full Code (Latest Code Status on File) Date Activated Date Inactivated Comments 07/15/2019 4:22 PM 07/17/2019 10:05 PM Care Teams Boom Stick Worker Relationship Specialty Start Date End Date Govind Christopher MD PCP - General Critical Care Med 11/23/21 Unknown, Notinfile 11/23/21 Aidan Maynard MD Consulting Physician Urology 07/17/19
--- OUTSIDE RECORDS SUMMARY | 2024-08-29 00:24 | XMS_ITS | Encounter Summary ---
Author Organization [facility] Address [address] [place] [address] Care Team Providers Care Daycare Teacher Name Role Phone Unknown, Notinfile Primary Care Provider Unavail able Govind Christopher MD Primary Care Provider [phone] Unknown, Notinfile Unavailable Unavailable Aidan Maynard MD Unavailable [phone] Encounter Details Date Type Department Care Team (Late st Contact Info) Description 07/23/2019 Telephone [facility] - Interventional Radiology [address] [place] [address] Virginia Tovar RN Social History Tobacco Use Types Packs/Day Years Used Date Smoking Tobacco: Never Smokeless Tobacco: Never Alcohol Use Standard Drinks/Week Comments Yes 0 (1 standard drink = 0.6 oz pur e alcohol) rare Sex and Gender Information Value Date Recorded Sex Assigned at Not on file 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
--- OUTSIDE RECORDS SUMMARY | 2024-08-29 00:24 | XMS_ITS | Clinical Summary ---
Author Organization [facility] Address [address] [place] [address] Phone Care Team Providers Care Brick Burner Name Role Phone Govind Christopher MD Primary Care Provider [phone] Allergies Active Allergy Reactions Criticality Noted Date [...] Date Type Department Care Team Description 07/18/2024 [facility] Internal Medicine [facility] [address] [address] Govind Christopher MD Acute reaction to situational stress; Attention deficit 06/24/2024 External Device Data STL ABSTRACTION Provider, Abstract 06/24/2024 External Device Data STL ABSTRACTION Provider, Abstract 06/22/2024 [facility] Internal Medicine [facility] [address] [address] Govind Christopher MD 06/21/2024 External Device Data [...] on file 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 [facility] [address] [address] Health Maintenance Due Date Last Done Comments [...] 06/21/2015, 11/2014, 10/12/[address] [employer] ACCESS CHOICE Care Teams Brick Burner Relationship Specialty Start Date End Date Govind Christopher MD [address] [place], [place] [address] [address] PCP - General Internal Medicine 07/15/18
--- OUTSIDE RECORDS SUMMARY | 2024-08-29 00:24 | XMS_ITS | Referral Summary ---
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 Cohen Insurance [facility] ACCESS CHOICE [employer] Address: [address] [place] [address] [employer] Address: [address] [place] [address] [employer] Address: [id number] [place] [address] ANTH ACCESS CHOICE Advance Directives For more information, please contact: [phone] * Full Code (Latest Code Status on File) Date Activated Date Inactivated Comments 07/15/2019 4:22 PM 07/17/2019 10:05 PM Care Teams Escalator Service Mechanic Relationship Specialty Start Date End Date Govind Christopher MD PCP - General Critical Care Med 11/23/21 Unknown, Notinfile 11/23/21 Aidan Maynard MD Consulting Physician Urology 07/17/19
--- OUTSIDE RECORDS SUMMARY | 2024-08-29 00:25 | XMS_ITS | Continuity of Care Document ---
Author Organization [facility] Address [address] [place] [address] Phone Care Team Providers Care Measurement Technician Name Role Phone Toni Barreto MD Unavailable Unavailable Allergies, Adverse Reactions, Alerts Substance Reaction Status Criticality Penicillins Active No Information Medications Medication Instructions Dosage Effective Dates (start - stop) Status Comments LINZESS 72 MCG CAPSULE TAKE 1 CAPSULE BY MOUTH EVERY DAY ON EMPTY STOMACH AT LEAST 30 MINUTES BEFORE FIRST MEAL OF THE DAY - Active ONDANSETRON ODT 8 MG TABLET TAKE 1 TABLET BY MOUTH EVERY 6 HOURS NEEDED FOR NAUSEA - Active sertraline 100 mg tablet take 1 tablet by oral route every day 100 MG - Active Lipitor 10 mg tablet take 1 tablet by oral route every day 10 MG - Active Focalin 10 mg tablet take 1 tablet by oral route 2 times every day at least 4 hours apart 10 MG - Active Linzess 72 mcg capsule TAKE 1 CAPSULE BY MOUTH EVERY DAY ON EMPTY STOMACH AT LEAST 30 MINUTES BEFORE FIRST MEAL OF THE DAY - No Longer Active Procedures Procedure Date OFFICE [id number] BODY MASS INDEX DOCD SYST BP LT 130 MM HG DIAST BP 80-89 MM HG OFFICE [id number] BODY MASS INDEX DOCD SYST BP GE 130 - 139MM HG DIAST BP 80-89 MM HG OFFICE [id number] BODY MASS INDEX DOCD SYST BP LT 130 MM HG DIAST BP < 80 MM HG TISSUE EXAM BY PATHOLOGIST UPPER GI ENDOSCOPY BIOPSY TISSUE EXAM BY PATHOLOGIST COLONOSCOPY AND BIOPSY OFFICE [id number] BODY MASS INDEX DOCD SYST BP LT 130 MM HG DIAST BP 80-89 MM HG Advance Directives Directive Yes / No Effective Date File Name No Information Encounters Encounter Description Practice Location Reason(s) For Visit Diagnoses Date Provider Providers Copied on Encounter [facility], [address], [place], [place], [id number] , tel: [phone] [facility] No Information 5 Mary Lou Muñoz. [address] [place] [address], [id number] , . tel: [phone] [facility], [address], [place], [place], [address] , [place] tel: [phone] [facility] No Information 5 Mary Lou Muñoz. [address] [place] [address], [id number] , . tel: [phone] OFFICE SOWVU-CQL-DB PANDED [facility], [address], [place], [place], [id number] , [place] tel: [phone] [facility] Follow up (chief complaint) Chronic constipationGastro paresis 5 Janes Thomas. [address], [place], [id number] , [place]. tel: [phone] Referring Provider: Govind Christopher, [address] [facility], [place], [address]. tel:[phone] [facility], [address], [place], [place], [address] , tel: [phone] [facility] No Information 5 Mary Lou Muñoz. [address] [place] [address], [id number] , . tel: [phone] OFFICE KGTKG-BOA-YD PANDROSSANA [facility], [address], [place], [place], [id number] , [place] tel: [phone] [facility] GI problems (chief complaint) GastroparesisChron ic constipationLower abdominal pain 4 Mary Lou Toni. [address] [place] [address], [id number] , [place]. tel: [phone] Referring Provider: Govind Christopher, [address] [facility], [place], [address]. tel:[phone] OFFICE PFDHD-BJU-XT [facility], [address], [place], [place], [id number] , [place] tel: [phone] [facility] GI problems (chief complaint) Chronic nauseaWeight lossChronic constipationGastro paresis 3 Mary Lou Toni. [address] [place] [address], [id number] , [place]. tel: [phone] Referring Provider: Martha Marrero, [address] [place] [address], [address] . tel:[phone] [facility], [address], [place], [place], [address] , [place] tel: [phone] [facility] No Information 3 Mary Lou Toni. [address] [place] [address], [id number] , [place]. tel:[phone] Referring Provider: Govind Christopher, [address] [facility], [place], [address]. tel:[phone] [facility], [address], [place], [place], [id number] , [place] tel:[phone] [facility] [place] No Information 3 Mary Lou Toni. [address] [place] [address], [id number] , [place]. tel:[phone] Referring Provider: Aquilino Paz [address] [facility], [place], [address]. tel:[phone] [facility], [address], [place], [place], [address] , tel:[phone] [facility] No Information 3 Mary Lou Muñoz. [address] [place] [address], [id number] , [place]. tel:[phone] Referring Provider: Aquilino Paz [address] [facility], [place], [address]. tel:[phone] [facility] [address], [place], [place], [id number] , [place] tel:[phone] [facility] [place] No Information 3 Mary Lou Muñoz. [address] [place] [address], [id number] , [place]. tel:[phone] Referring Provider: Toni Barreto, [address] [place] [address], [address] . tel:[phone] [facility], [address], [place], [id number] , tel:[phone] [facility] GI problems-- Diarrhea (chief complaint) Nausea vomiting and diarrheaDiarrhea, unspecifiedWeight lossLower abdominal pain 3 Mary Lou Muñoz. [address] [place] [address], [id number] , [place]. tel:[phone] Referring Provider: Aquilino Paz [address] [facility], [place], [address]. tel:[phone] Family History Family Member Type Diagnosis Age At Onset No Information Payers Payer name Insurance type Covered democrat ID Authorrayaa eduardo(s) [facility] ACCESS CHOICE [id number] Social History Type Description Quantity Date Captured [...] Protein bars and shakes make him constipated. [place] 1 and straining. GI problems--Diarrhea Over a sun of diarrhea. Has also been having episodes of vomiting. has been having chronic nausea. In past would go once every other day. When diarrhea was bad would [place] 6 and 7 and go 6-7 times [...] Lower abdominal pain Continue Linzess Related to Human Resource Consultant kelly constipation Continue present yashira atmentReglan stopped [...]
--- OUTSIDE RECORDS SUMMARY | 2024-08-29 00:25 | XMS_ITS | Encounter Summary ---
Author Organization [facility] Address [address] [place] [address] Care Team Providers Care Corporate Communications Intern Name Role Phone Govind Christopher MD Primary Care Provider Encounter Details Date Type Department Care Team (Late st Contact Info) Description 2000 Outpatient Historical [facility] - [facility] [place] [address] [facility] [address] [address] Shannon Orellana MD NO ADDRESS ON FILE Social History Tobacco Use Types Packs/Day Years Used Date Smoking Tobacco: Never Assessed Sex and Gender Information Value Date Recorded Sex Assigned at Not on file Legal Sex Male 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 DIRECTOR 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 Gender Identity Not on file Sexual Orientation Not on file documented as of this encounter Plan of Treatment Upcoming Encounters Date Type Department Care Team (Late st Contact Info) Description 09/09/2024 2:00 PM CDT Office Visit [facility] [place] [address] [address] Govind Christopher MD [address] [address] documented as of this encounter Visit Diagnoses Not on filedocumented in this encounter Care Teams Corporate Communications Intern Relationship Specialty Start Date End Date Govind Christopher MD [address] [place] [address] PCP - General Internal Medicine 07/15/18 documented as of this encounter
--- OUTSIDE RECORDS SUMMARY | 2024-08-29 00:26 | XMS_ITS | Encounter Summary ---
Author Organization [facility] Address [address] [place] [address] Care Team Providers Care Blocker Automatic Name Role Phone Govind Christopher MD Primary Care Provider [phone] Encounter Details Date Type Department Care Team (Late st Contact Info) Description 2000 Outpatient Historical [facility] - Medical [place] [address] [facility] [address] [address] Bright Joy MD NO ADDRESS ON FILE Social History Tobacco Use Types Packs/Day Years Used Date Smoking Tobacco: Never Assessed Sex and Gender Information Value Date Recorded Sex Assigned at Not on file 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 Gender Identity Not on file Sexual Orientation Not on file documented as of this encounter Plan of Treatment Upcoming Encounters Date Type Department Care Team (Late st Contact Info) Description 09/09/2024 2:00 PM CDT Office Visit [facility] Internal [facility] Medical [place] [facility] [address] [facility] [address] [address] Govind Christopher MD [address] [facility] [address] [address] documented as of this encounter Visit Diagnoses Not on filedocumented in this encounter Care Teams Blocker Automatic Relationship Specialty Start Date End Date Govind Christopher MD [address] [place], [place] [address] [place] [address] PCP - General Internal Medicine 07/15/18 documented as of this encounter
--- OUTSIDE RECORDS SUMMARY | 2024-08-29 00:26 | XMS_ITS | Encounter Summary ---
Author Organization [facility] Address [address] [place] [address] Care Team Providers Care Ring Making Machine Operator Name Role Phone Govind Christopher MD Primary Care Provider Encounter Details Date Type Department Care Team (Late st Contact Info) Description [address] 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 Internal Medicine Medical [place] [facility] [address] [facility] [address] [address] Govind Christopher MD [address] [facility] [address] [address] documented as of this encounter Visit Diagnoses Not on filedocumented in this encounter Care Teams Ring Making Machine Operator Relationship Specialty Start Date End Date Govind Christopher MD [address] [place], [place] [address] [place] [address] PCP - General Internal Medicine 07/15/18 documented as of this encounter
--- OUTSIDE RECORDS SUMMARY | 2024-08-29 00:26 | XMS_ITS | Encounter Summary ---
Author Organization [facility] Address [address] [facility] Attn: [place] [address] Care Team Providers Care Extruding Department Supervisor Name Role Phone Govind Christopher MD Primary Care Provider [phone] Encounter Details Date Type Department Care Team (Late st Contact Info) Description 2000 Inpatient Historical Shannon Orellana MD NO ADDRESS ON FILE Yadira Pinzon MD [address] [place] [address] [place] [address] Twin, mate liveborn, born in hospital, delivered by delivery (Primary Dx) Social History Tobacco Use Types Packs/Day Years Used Date Smoking Tobacco: Never Assessed Sex and Gender Information Value Date Recorded Sex Assigned at Not on file 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 Gender Identity Not on file Sexual Orientation Not on file documented as of this encounter Plan of Treatment Upcoming Encounters Date Type Department Care Team (Late st Contact Info) Description 09/09/2024 2:00 PM CDT Office Visit [facility] Internal Medicine Medical [place] A [facility] [address] [place] [address] Govind Christopher MD [address] [place] [address] [place] [address] documented as of this encounter Visit Diagnoses Diagnosis Twin, mate liveborn, born in hospital, delivered by delivery- Primary documented in this encounter Care Teams Extruding Department Supervisor Relationship Specialty Start Date End Date Govind Christopher MD [address] [place] [address] PCP - General Internal Medicine 07/15/18 documented as of this encounter
--- OUTSIDE RECORDS SUMMARY | 2024-08-29 00:26 | XMS_ITS | Clinical Summary ---
Author Organization [facility] Address [address] [place] [address] Phone Care Team Providers Care Regeneration Operator Name Role Phone Govind Christopher MD Primary Care Provider [phone] Allergies Active Allergy Reactions Criticality Noted Date [...] Description 07/09/2024 11:20 AM CDT Office Visit [facility] [address] [place] [address] Jeremy Curry MD Nephrolithiasis (Primary Dx); 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 Orders Only [facility] [address] [place] [address] Naya Palacio MA Nephrolithiasis (Primary Dx) from [...] Description 01/12/2025 1:00 PM CDT Office Visit [facility] [address] [place] [address] Gurdeep Cardoza PA [address] [place] [address] 11/10/2025 9:00 AM CDT Office Visit [facility] [address] [place], [place] [id number] Jeremy Curry MD [address] [place] [address] Health Maintenance Due Date Last Done Comments Pneumococcal PPSV23 Highest Risk Adult (2 of 3 - PPSV23) 02/26/2019 03/13/2001, 2000, 2000, Additional history exists Influenza Vaccine (Season Ended) 2024 03/07/20 22 Insurance ([facility]) Care Teams Regeneration Operator Relationship Specialty Start Date End Date Govind Christopher MD [address] [place] [address] PCP - General Internal Medicine 08/05/19
--- NOTE | 2024-08-29 06:43 | WPDHPUPDATE1 ---
History and Physical Update Update Date/Time: 08/29/24 06:43 History and Physical has been reviewed, including an updated exam of the patient. There are NO changes in the patient's condition. Risks, benefits, and alternatives have been discussed and questions answered. Patient agrees to proceed with procedure.
[2024-08-29] MEDS: LACTATED RINGERS 1,000 ML 30 ML IV CONT (07:15)
[2024-08-29 07:38] LABS: Anion Gap 10 mmol/L (4-12); Blood Urea Nitrogen 17 mg/dL (9-20); Calcium 8.9 mg/dL (8.4-10.2); Carbon Dioxide 26 mmol/L (22-30); Chloride 105 mmol/L (98-107); Estimated CRCL calculation 136 ml/min; Estimated Glomerular Filt Rate > 60; Glucose 98 mg/dL (65-110); Potassium 3.7 mmol/L (3.4-5.0); Sodium 141 mmol/L (137-145)
[2024-08-29] MEDS: ONDANSETRON INJ 4 MG/2 ML VIAL IV PUSH (07:39)
[2024-08-29 07:44] LABS: Prothrombin Time 12.9 Seconds (11.1-14.7)
[2024-08-29 07:45] LABS: Partial Thromboplastin Time 27.6 Seconds (22.3-36.8)
--- NOTE | 2024-08-29 08:40 | WPDANESEPPF ---
Anes - Initial Pre Proc Eval Procedure: Operation Date: 08/29/24 08:30 Proposed Procedures p Left Extracorporeal Shock Wave Lithotripsy - Abdiel Rodarte MD Date/Time: 08/29/24 08:40 Surgeon: Abdiel Rodarte MD Pre Op Diagnosis: left renal stone Patient Data Age: 24 Gender: M Height: 1.6 m Weight: 101.4 kg Last Vital Signs Temp 97 F L 08/29/24 07:00 Pulse 67 08/29/24 07:00 Resp 14 08/29/24 07:00 BP 105/74 08/29/24 07:00 Pulse Ox 98 08/29/24 07:00 O2 Del Method Room Air 08/29/24 07:00 Allergies Allergy/AdvReac Type Severity Reaction Status Date / Time amoxicillin (From Augmentin) AdvReac Mild Rash Verified 08/29/24 07:10 clavulanic acid (From AdvReac Mild Rash Verified 08/29/24 07:10 Augmentin) Home Medications Medication Instructions Recorded Confirmed Type alprazolam 0.25 mg tablet 0.25 mg PO PRN PRN Anxiety 12/02/20 08/20/24 History sertraline 50 mg tablet 100 mg PO HS 12/02/20 08/20/24 History acetaminophen 500 mg tablet 1,000 mg PO Q4-6H PRN PAIN 12/07/20 08/20/24 History atorvastatin 10 mg tablet 10 mg PO DAILY 12/21/22 08/20/24 History potassium citrate 15 mEq (1,620 15 meq PO BID 12/21/22 08/20/24 History mg) tablet,extended release linaclotide 72 mcg capsule 72 mcg PO DAILY 03/06/23 08/20/24 History (Linzess) ondansetron 4 mg disintegrating 4 mg PO Q8H 03/06/23 08/20/24 History tablet tramadol 50 mg tablet 50 mg PO Q6-8H PRN pain 06/05/24 08/20/24 History hydrochlorothiazide 25 mg tablet 25 mg PO BID 08/20/24 08/20/24 History Laboratory Tests 08/29/24 07:12 PT 12.9 Seconds (11.1-14.7) INR 1.0 APTT 27.6 Seconds (22.3-36.8) Sodium 141 mmol/L (137-145) Potassium 3.7 mmol/L (3.4-5.0) Chloride 105 mmol/L (98-107) Carbon Dioxide 26 mmol/L (22-30) Anion Gap 10 mmol/L (4-12) BUN 17 mg/dL (9-20) Creatinine 0.77 mg/dL (0.7-1.3) Estim Creat Clear Calc 136 ml/min Estimated GFR > 60 (59 - ) Glucose 98 mg/dL (65-110) Calcium 8.9 mg/dL (8.4-10.2) Patient hx anesthesia problems: none Family hx anesthesia problems: none Results Review: All pre-operative results and documents have been reviewed as part of the pre-operative evaluation. [facility] Past Medical History Medical History (Updated 06/06/24 @ 07:21 by Govind Fernando DO) Panic attack Left ureteral stone Hyperlipidemia Anxiety Obesity Kidney stones ADHD Asthma Surgical History Surgical History No significant past surgical history Social History Social History Smoking status: Never smoker Alcohol intake: current Drinks per week: 1 Alcohol use details: 2-4/MONTH Substance use: current Substance use type: marijuana Other substance usage details: Sometimes daily Last use: 12/20/22 Living arrangements: with family Spiritual care concerns: No Anes - Eval Final PreProcedure Day of Procedure 08/29/24 08:40 Patient weight: morbidly obese Heart: regular rate and rhythm Lungs: clear to auscultation Airway: Mallampati scale class II Neurological: alert and oriented Last oral intake: >/= 8 hours ASA classification: III Emergent: no Anesthetic plan: proceed Anesthesia type and monitoring: general LMA and standard monitoring Results Review: All pre-operative results and documents have been reviewed as part of the pre-operative evaluation. Informed Consent: The patient's anesthetic plan and its attendant risks and benefits were discussed with the patient/family/POA. Questions were solicited and answers provided to the satisfaction of the patient/family/POA.
[2024-08-29] MEDS: ceFAZolin 2 GM/D5W 50 ML 2 GM/50 ML BAG IVPB (08:46)
--- NOTE | 2024-08-29 08:59 | W.PM.PROC2 ---
Procedure Note - Detailed Date of Procedure 08/29/24 Pre-op Diagnosis Left renal stone Post-op Diagnosis Same Procedure Performed Left ESWL Surgeon Abdiel Rodarte MD Anesthesia General Description of Procedure The patient was brought to the operative suite where he was placed in the supine position on the Dornier lithotripsy table. The focal point of the lithotripter was placed at a 1cm left renal calculus. the radiologist had made note of a calcification in his pelvis but that has been there previous studies, suggesting that it is a phlebolith.A total of 2500 shocks were delivered to the left renal stone at a power setting of 4. There appeared to be good fragmentation of the stone. The patient tolerated the procedure well and was taken to the recovery room in good condition.
[2024-08-29] MEDS: KETOROLAC 30 MG/ML VIAL (*BKC) IV PUSH (09:02)
[2024-08-29] MEDS: oxyCODONE HCL (*CRX) 5 MG TAB IR PO (10:45)
== END 2024-08-29 10:57 | disposition home or self-care (01) ==
PROVIDERS: Anesthesiology; Visit Provider Urology
PROC: (CPT 50590; principal; 2024-08-29 08:30)
DX: N20.0 Calculus of kidney (principal); E78.5 Hyperlipidemia, unspecified; J45.909 Unspecified asthma, uncomplicated; F41.9 Anxiety disorder, unspecified; F41.0 Panic disorder [episodic paroxysmal anxiety]; F90.9 Attention-deficit hyperactivity disorder, unspecified type; F12.90 Cannabis use, unspecified, uncomplicated; E66.01 Morbid (severe) obesity due to excess calories; Z68.39 Body mass index [BMI] 39.0-39.9, adult; Z79.891 Long term (current) use of opiate analgesic; Z79.899 Other long term (current) drug therapy
CPT/HCPCS: 50590; 36415; 74018; 80048; 85610; 85730; A9270; J0690; J1885; J2003; J2250; J2405; J2704; J3010; J7120

== ENCOUNTER 2024-09-05 14:22 | Outpatient (CLI) | payer BC, SELFPAY ==
--- OUTSIDE RECORDS SUMMARY | 2024-09-05 14:27 | XMS_ITS | Encounter Summary ---
Author Organization [facility] Address [address] [place] [address] Care Team Providers Care Center Consultant Name Role Phone Govind Christopher MD Primary Care Provider Encounter Details Date Type Department Care Team (Late st Contact Info) Description 2000 Outpatient Historical [facility] - Medical [place] [address] [facility] [address] [address] Shannon Orellana MD NO ADDRESS ON FILE Social History Tobacco Use Types Packs/Day Years Used Date Smoking Tobacco: Never Assessed Sex and Gender Information Value Date Recorded Sex Assigned at Not on file 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 Gender Identity Not on file Sexual Orientation Not on file documented as of this encounter Plan of Treatment Upcoming Encounters Date Type Department Care Team (Late st Contact Info) Description 09/09/2024 2:00 PM CDT Office Visit [facility] Internal Medicine Medical [place] [address] [address] Govind Christopher MD [address] [address] documented as of this encounter Visit Diagnoses Not on filedocumented in this encounter Care Teams Center Consultant Relationship Specialty Start Date End Date Govind Christopher MD [address] [place] [address] PCP - General Internal Medicine 07/15/18 documented as of this encounter
--- OUTSIDE RECORDS SUMMARY | 2024-09-05 14:27 | XMS_ITS | Clinical Summary ---
Author Organization [facility] Address [address] [facility] [address] [facility] [place] [address] Care Team Providers Care Trim Installer Name Role Phone Unavailable Primary Care Provider Unavailabl e Source Comments [facility],non-owned Affiliates and Associated Physician Practices is amultiple site organization consisting of ambulatory clinics and hospital sitesin [place], [place], [place] and [place]. This disclosure is being madepursuant to the Care Everywhere program and may not contain all information available regarding this patient. 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 OFFICER Gender Identity Not on file Sexual Orientation Not on file Last Filed Vital Signs Vital Sign Reading Time Taken Comments Blood Pressure 90/56 05/01/2011 8:32 AM EQUAL EMPLOYMENT OPPORTUNITY OFFICER Pulse 78 05/01/2011 8:32 AM EQUAL EMPLOYMENT OPPORTUNITY OFFICER Temperature - - Respiratory Rate 18 05/01/2011 8:32 AM EQUAL EMPLOYMENT OPPORTUNITY OFFICER Oxygen Saturation - - Inhaled Oxygen Concentration - - Weight 41.4 kg (91 lb 4.8 oz) 05/01/2011 8:32 AM EQUAL EMPLOYMENT OPPORTUNITY OFFICER Height 131.8 cm (4' 3.89 ) 05/01/2011 8:32 AM CS T Body Mass Index 23.84 05/01/2011 8:32 AM EQUAL EMPLOYMENT OPPORTUNITY OFFICER Plan of Treatment Health Maintenance Due Date [...]
--- OUTSIDE RECORDS SUMMARY | 2024-09-05 14:27 | XMS_ITS | Encounter Summary ---
Author Organization [facility] Address [address] [place] [address] Care Team Providers Care Livestock Nutrition Territory Manager Name Role Phone Govind Christopher MD Primary Care Provider Encounter Details Date Type Department Care Team (Late st Contact Info) Description 2000 Outpatient Historical [facility] Pediatrics - [facility] [address] [facility] [address] [address] Bright Joy MD [address] [facility] [place] [address] Social History Tobacco Use Types Packs/Day Years Used Date Smoking Tobacco: Never Assessed Sex and Gender Information Value Date Recorded Sex Assigned at Not on file 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 [facility] [address] [address] documented as of this encounter Visit Diagnoses Not on filedocumented in this encounter Care Teams Livestock Nutrition Territory Manager Relationship Specialty Start Date End Date Govind Christopher MD [address] [place] [address] PCP - General Internal Medicine 07/15/18 documented as of this encounter
--- OUTSIDE RECORDS SUMMARY | 2024-09-05 14:27 | XMS_ITS | Encounter Summary ---
Author Organization [facility] Address [address] [place] [address] Care Team Providers Care Operation Specialist Name Role Phone Govind Christopher MD Primary Care Provider Encounter Details Date Type Department Care Team (Late st Contact Info) Description 01/20/2022 Abstract [facility] Internal Medicine [address] [address] Govind Christopher MD [address] [place] [address] Social History Tobacco Use Types Packs/Day Years Used Date Smoking Tobacco: Never Smokeless Tobacco: Never Alcohol Use Standard Drinks/Week Comments No 0 (1 standard drink = 0.6 oz pur e alcohol) Sex and Gender Information Value Date Recorded Sex Assigned at Not on file 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 [address] [place], [place] [address] [address] Govind Christopher MD [address] [place] [address] documented as of this encounter Visit Diagnoses Not on filedocumented in this encounter Additional Health Concerns Assessment Noted Time PHQ-9 Depression Total Score: 1 11/09/19 22 10:39 AM CDT documented as of this encounter Care Teams Operation Specialist Relationship Specialty Start Date End Date Govind Christopher MD [address] [place] [address] PCP - General Internal Medicine 07/15/18 documented as of this encounter
--- OUTSIDE RECORDS SUMMARY | 2024-09-05 14:27 | XMS_ITS | Clinical Summary ---
Author Organization [facility] Address [address] [place] [address] Phone Care Team Providers Care Inspector Wire Products Name Role Phone Govind Christopher MD Primary Care Provider [phone] Allergies Active Allergy Reactions Criticality Noted Date [...] Description 07/09/2024 11:20 AM CDT Office Visit [facility] [address] [place] [address] Jeremy Curry MD Nephrolithiasis (Primary Dx); 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 Orders Only [facility] [address] [place] [address] Naya Palacio MA Nephrolithiasis (Primary Dx) from [...] Description 01/12/2025 1:00 PM CDT Office Visit [facility] [address] [place] [address] Gurdeep Cardoza PA [address] [place] [address] 11/10/2025 9:00 AM CDT Office Visit [facility] [address] [place], [place] [id number] Jeremy Curry MD [address] [place] [address] Health Maintenance Due Date Last Done Comments Pneumococcal PPSV23 Highest Risk Adult (2 of 3 - PPSV23) 02/26/2019 03/13/2001, 2000, 2000, Additional history exists Influenza Vaccine (Season Ended) 2024 03/07/20 22 Insurance ([facility]) Care Teams Inspector Wire Products Relationship Specialty Start Date End Date Govind Christopher MD [address] [place] [address] PCP - General Internal Medicine 08/05/19
--- OUTSIDE RECORDS SUMMARY | 2024-09-05 14:27 | XMS_ITS | Clinical Summary ---
Author Organization [facility] Address [address] [place] [address] Phone Care Team Providers Care Venereal Disease Investigator Name Role Phone Govind Christopher MD Primary [...] Encounters Date Type Department Care Team Description 09/05/2024 Telephone [facility] Internal Medicine [facility] [address] [place] [address] Govind Christopher MD Provider Call 07/18/2024 Refill [facility] Internal Medicine [facility] [address] [place] [address] Govind Christopher MD Acute reaction to situational stress; Attention deficit 06/24/2024 External Device Data STL ABSTRACTION Provider, Abstract 06/24/2024 External Device Data STL ABSTRACTION Provider, Abstract 06/22/2024 Refill [facility] Internal Medicine [facility] RED [address] [place] [address] Govind Christopher MD 06/21/2024 External Device Data [...] on file 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 [facility] [address] [place] [address] Health Maintenance Due Date Last Done Comments [...] 06/21/2015, 11/2014, 10/12/[address] BLUE ACCESS CHOICE [address] [place] [id number] Care Teams Venereal Disease Investigator Relationship Specialty Start Date End Date Govind Christopher MD [address] [place] [address] PCP - General Internal Medicine 07/15/18
--- OUTSIDE RECORDS SUMMARY | 2024-09-05 14:27 | XMS_ITS | Encounter Summary ---
Author Organization [facility] Address [address] [place] [address] Care Team Providers Care Transcription Typist Name Role Phone Govind Christopher MD Primary Care Provider Encounter Details Date Type Department Care Team (Late st Contact Info) Description 2000 Outpatient Historical [facility]3] Pediatrics - [facility] [address] [facility] [address] [address] Bright Joy MD [address] [facility] [address] Social History Tobacco Use Types Packs/Day Years Used Date Smoking Tobacco: Never Assessed Sex and Gender Information Value Date Recorded Sex Assigned at Not on file 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 [facility] [address] [address] documented as of this encounter Visit Diagnoses Not on filedocumented in this encounter Care Teams Transcription Typist Relationship Specialty Start Date End Date Govind Christopher MD [address] [place] [address] PCP - General Internal Medicine 07/15/18 documented as of this encounter
--- OUTSIDE RECORDS SUMMARY | 2024-09-05 14:27 | XMS_ITS | Encounter Summary ---
Author Organization [facility] Address [address] [place], [place] [address] Care Team Providers Care Nurse Emergency Name Role Phone Govind Christopher MD Primary Care Provider Reason for Visit * Reason Comments Provider Call Encounter Details Date Type Department Care Team (Late st Contact Info) Description 09/05/2024 Telephone [facility] Internal Medicine Medical [place] [id number] [address] Govind Christopher MD [address] [place] [address] [address] [place] [address] Provider Call Social History Tobacco Use Types Packs/Day Years Used Date Smoking Tobacco: Never Smokeless Tobacco: Never Alcohol Use Standard Drinks/Week Comments Not Currently [...] on file 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 Lab orders replicated and faxed to [facility]. * Telephone Encounter - Magnolia Rosas - 09/05/2024 2:10 PM CDT Copied from [facility] #[id number]. Topic: [id number] Call >> September 05, 2024 2:07 PM Magnolia Barth wrote: Caller is requesting to speak with Clinical Care Team. Caller Name: [facility] Callback Number: [phone] fax [phone] Clinician Type: Other healthcare professional not listed above Call Notes: Cayetano Goyal is there for blood work , no orders have been sent Is this addressing an immediate patient care need? Yes Transferred to Backline/RESERVATION AGENT Line and Isaah answered call. documented in this encounter Plan of Treatment Upcoming Encounters Date Type Department Care Team (Late st Contact Info) Description 09/09/2024 2:00 PM CDT Office Visit [facility] Internal Medicine Medical [place] [facility] [address] [address] Govind Christopher MD [address] [place] [address] [address] [place] [address] Scheduled Orders Name Type Priority Associated Diagnoses Orde r Schedule COMPREHENSIVE METABOLIC PANEL Lab Routine Hepatic steatosis Expected: 09/05/2024, Expires: 09/05/2025 LIPID PANEL Lab Routine High cholesterol Expected: 09/05/2024, Expires: 09/05/2025 documented as of this encounter Visit Diagnoses Diagnosis Hepatic steatosis Other chronic nonalcoholic liver disease High cholesterol Pure hypercholesterolemia documented in this encounter Care Teams Nurse Emergency Relationship Specialty Start Date End Date Govind Christopher MD [address] [place] [address] [address] [place] [address] PCP - General Internal Medicine 07/15/18 documented as of this encounter
--- OUTSIDE RECORDS SUMMARY | 2024-09-05 14:27 | XMS_ITS | Continuity of Care Document ---
Author Organization [facility] Address [address] [place] [address] Phone Care Team Providers Care Branding Machine Operator Name Role Phone Toni Barreto MD Unavailable [...] No Longer Active Procedures Procedure Date OFFICE [id number] BODY MASS INDEX DOCD SYST BP LT 130 MM HG DIAST BP 80-89 MM HG OFFICE [id number] BODY MASS INDEX DOCD SYST BP GE 130 - 139MM HG DIAST BP 80-89 MM HG OFFICE [id number] BODY MASS INDEX DOCD SYST BP LT 130 MM HG DIAST BP < 80 MM HG TISSUE EXAM BY PATHOLOGIST UPPER GI ENDOSCOPY BIOPSY TISSUE EXAM BY PATHOLOGIST COLONOSCOPY AND BIOPSY OFFICE [id number] BODY MASS INDEX DOCD SYST BP LT 130 MM HG DIAST BP 80-89 MM HG Advance Directives Directive Yes / No Effective Date File Name No Information Encounters Encounter Description Practice Location Reason(s) For Visit Diagnoses Date Provider Providers Copied on Encounter [facility], [address], [place], [place], [id number] , tel: [phone] [facility] No Information 5 Mary Lou Muñoz. [address] [place] [address], [id number] , . tel: [phone] [facility], [address], [place], [place], [address] , [place] tel: [phone] [facility] No Information 5 Mary Lou Muñoz. [address] [place] [address], [id number] , . tel: [phone] OFFICE CUKAQ-RJN-NI PANDED [facility], [address], [place], [place], [id number] , [place] tel: [phone] [facility] Follow up (chief complaint) Chronic constipationGastro paresis 5 Janes Thomas. [address] [place], [place], [id number] , [place]. tel: [phone] Referring Provider: Govind Christopher, [address] [facility] [address] [facility] S[facility], [place], [address]. tel:[phone] [facility], [address], [place], [place], [address] , tel: [phone] [facility] No Information 5 Mary Lou Muñoz. [address] [place] [address], [id number] , . tel: [phone] OFFICE [id number]-MLV-EK PANDROSSANA [facility], [address], [place], [place], [address] , [place] tel: [phone] [facility] GI problems (chief complaint) GastroparesisChron ic constipationLower abdominal pain 4 Mary Lou Toni. [address] [place] [address], [id number] , [place]. tel: [phone] Referring Provider: Govind Christopher, [address] [place] [address] [facility], [place], [address]. tel:[phone] OFFICE [id number]-FRQ-EJ [facility], [address], [place], [place], [id number] , [place] tel: [phone] [facility] GI problems (chief complaint) Chronic nauseaWeight lossChronic constipationGastro paresis 3 Mary Lou Toni. [address] [place] [address], [id number] , [place]. tel: [phone] Referring Provider: Martha Marrero, [address] [place] [address], [address] . tel:[phone] [facility], [address], [place], [place], [address] , [place] tel: [phone] [facility] No Information 3 Mary Lou Toni. [address] [place] [address], [id number] , [place]. tel:[phone] Referring Provider: Govind Christopher, [address] [place] [address] [facility], [place], [address]. tel:[phone] [facility], [address], [place], [place], [address] , [place] tel:[phone] [facility] [place] No Information 3 Mary Lou Toni. [address] [place] [address], [id number] , [place]. tel:[phone] Referring Provider: Aquilino Paz [address] [facility] [address], [place], [address]. tel:[phone] [facility], [address], [place], [place], [id number] , tel:[phone] [facility] No Information 3 Mary Lou Muñoz. [address] [place] [address], [id number] , [place]. tel:[phone] Referring Provider: Aquilino aPz S [address] [facility] [address], [place], [address]. tel:[phone] [facility] [address], [place], [place], [id number] , [place] tel:[phone] [facility] [place] No Information 3 Mary Lou Muñoz. [address] [place] [address], [id number] , [place]. tel:[phone] Referring Provider: Toni Barreto, [address] [place] [address], [address] . tel:[phone] [facility], [address], [place], [id number] , tel:[phone] [facility] GI problems-- Diarrhea (chief complaint) Nausea vomiting and diarrheaDiarrhea, unspecifiedWeight lossLower abdominal pain 3 Mary Lou Muñoz. [address] [place] [address], [id number] , [place]. tel:[phone] Referring Provider: Aquilino Paz [address] [facility] [address], [place], [address]. tel:[phone] Family History Family Member Type Diagnosis Age At Onset No Information Payers Payer name Insurance type Covered libertarian ID Authorrayaa eduardo(s) [facility] ACCESS CHOICE [id number] Social History Type Description Quantity Date Captured [...] Protein bars and shakes make him constipated. [place] 1 and straining. GI problems--Diarrhea Over a sun of diarrhea. Has also been having episodes of vomiting. has been having chronic nausea. In past would go once every other day. When diarrhea was bad would Uvalde 6 and 7 and go 6-7 times [...] Lower abdominal pain Continue Linzess Related to Client Support Coordinator kelly constipation Continue present yashira atmentReglan stopped [...]
--- OUTSIDE RECORDS SUMMARY | 2024-09-05 14:27 | XMS_ITS | Encounter Summary ---
Author Organization [facility] Address [address] [facility] Attn: [place] [address] Care Team Providers Care Perforator Operator Name Role Phone Govind Christopher MD Primary Care Provider Encounter Details Date Type Department Care Team (Late st Contact Info) Description 2000 Inpatient Historical Shannon Orellana MD NO ADDRESS ON FILE Yadira Pinzon MD [address] [place] [address] [place] [address] Twin, mate liveborn, born in hospital, delivered by delivery (Primary Dx) Social History Tobacco Use Types Packs/Day Years Used Date Smoking Tobacco: Never Assessed Sex and Gender Information Value Date Recorded Sex Assigned at Not on file 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 [address] [facility] [address] [place] [address] Govind Christopher MD [address] [place] [address] [address] [place] [address] documented as of this encounter Visit Diagnoses Diagnosis Twin, mate liveborn, born in hospital, delivered by delivery- Primary documented in this encounter Care Teams Perforator Operator Relationship Specialty Start Date End Date Govind Christopher MD [address] [place] [address] PCP - General Internal Medicine 07/15/18 documented as of this encounter
[2024-09-05 15:05] LABS: Alanine Aminotransferase 44 U/L (6-50); Albumin Level 4.5 g/dL (3.5-5.1); Alkaline Phosphatase 71 U/L (38-126); Anion Gap 7 mmol/L (4-12); Aspartate Amino Transferase 33 U/L (17-59); Bilirubin,Total 0.5 mg/dL (0.2-1.3); Blood Urea Nitrogen 15 mg/dL (9-20); Calcium 9.4 mg/dL (8.4-10.2); Carbon Dioxide 31 mmol/L (22-30); Chloride 103 mmol/L (98-107); Cholesterol 221 mg/dL (0-200); Estimated Glomerular Filt Rate > 60; Glucose 101 mg/dL (65-110); HDL Direct 31 mg/dL; Potassium 3.8 mmol/L (3.4-5.0); Sodium 141 mmol/L (137-145); Triglycerides 172 mg/dL (<150)
[2024-09-05 15:15] LABS: LDL Cholesterol Direct 139 mg/dL
== END 2024-09-05 14:23 | disposition home or self-care (01) ==
DX: K76.0 Fatty (change of) liver, not elsewhere classified (principal); E78.00 Pure hypercholesterolemia, unspecified
CPT/HCPCS: 36415; 80053; 80061

== ENCOUNTER 2024-09-10 13:37 | Outpatient (CLI) | payer BC, SELFPAY ==
--- NOTE | ~2024-09-10 | XR_ITS ---
XR abdomen/kub 1V 09/10/2024 13:52 Indication: Left renal stone Procedure: KUB Comparison: Comparison to multiple prior studies sequentially, with oldest reviewed study dated 06/04. Findings: Stable cluster of stones lower pole left kidney. Bowel gas pattern nonobstructive. No acute osseous abnormality. No stones identified in the expected course of the ureters. Impression: 1: Left nephrolithiasis. Reviewed, dictated and finalized at location A. Impression: 1: Left nephrolithiasis.
--- OUTSIDE RECORDS SUMMARY | 2024-09-10 13:45 | XMS_ITS | Encounter Summary ---
Author Organization [facility] Address [address] [place] [address] Care Team Providers Care Petroleum Production Engineer Name Role Phone Govind Christopher MD Primary Care Provider [phone] Encounter Details Date Type Department Care Team (Late st Contact Info) Description 2000 Outpatient Historical [facility]3] Pediatrics - Medical [place] [address] [facility] [address] [address] Shannon Orellana MD NO ADDRESS ON FILE Social History Tobacco Use Types Packs/Day Years Used Date Smoking Tobacco: Never Assessed Sex and Gender Information Value Date Recorded Sex Assigned at Not on file Legal 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 Male 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 Gender Identity Not on file Sexual Orientation Not on file documented as of this encounter Plan of Treatment Upcoming Encounters Date Type Department Care Team (Late st Contact Info) Description 09/10/2025 2:00 PM CDT Office Visit [facility] Internal Medicine Medical [place] A [address] [facility] [address] [address] Govind Christopher MD [address] [facility] [address] [address] documented as of this encounter Visit Diagnoses Not on filedocumented in this encounter Care Teams Petroleum Production Engineer Relationship Specialty Start Date End Date Govind Christopher MD [address] [place] [address] PCP - General Internal Medicine 07/15/18 documented as of this encounter
--- OUTSIDE RECORDS SUMMARY | 2024-09-10 13:45 | XMS_ITS | Encounter Summary ---
Author Organization [facility] Address [address] [place] [address] Care Team Providers Care Supervisor Finishing Name Role Phone Govind Christopher MD Primary Care Provider Reason for Visit * Reason Onset Date Comments Lab Results 09/09/2024 Encounter Details Date Type Department Care Team (Late st Contact Info) Description 09/09/2024 Telephone [facility] Internal Medicine Medical [facility] [address] [facility] [address] [place] [address] Govind Christopher MD [address] 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 Spoke with Ximena at [phone]. Lab results will be faxed to [phone] with ATTN: Dr. Christopher. Lainey RN documented in this encounter Plan of Treatment Upcoming Encounters Date Type Department Care Team (Late st Contact Info) Description 09/10/2025 2:00 PM CDT Office Visit [facility] Internal Medicine Medical [place] A RED [address] [facility] [address] [place] [address] Govind Christopher MD [address] [place] [address] [address] [place] [address] documented as of this encounter Visit Diagnoses Not on filedocumented in this encounter Additional Health Concerns Assessment Noted Time PHQ-9 Depression Total Score: 1 09/10/19 25 2:03 PM CDT documented as of this encounter Care Teams Supervisor Finishing Relationship Specialty Start Date End Date Govind Christopher MD [address] [place] [address] [address] [place] [address] PCP - General Internal Medicine 07/15/18 documented as of this encounter
--- OUTSIDE RECORDS SUMMARY | 2024-09-10 13:45 | XMS_ITS | Referral Summary ---
Author Organization [facility] Address [address] [place] [address] Care Team Providers Care Electric Mule Operator Name Role Phone Govind Christopher MD Primary Care Provider [phone] Unknown, Notinfile Unavailable Unavailable Aidan Maynard MD Unavailable [phone] Allergies Active Allergy Reactions Criticality Noted [...] on file Legal Sex Male 7:59 AM ORDER PLANNER Gender Identity Male 11/25/2021 7:39 AM CDT [...] 10:20 AM CDT Height 162.2 cm (5' 3.86) 11/29/2021 10:20 AM C DT Body Mass Index 37.07 11/29/2021 10:20 AM CDT Plan of Treatment Not on file Medical Devices Implanted Type Area Wrist Closer Device Identifier Shelf Expiration Date Model / Serial / Lot [employer] [id number] Amplatz 8.5fr 26cm 6 Sideport Introducer Catheter String - [id number] Implanted:Qty: 1 on 07/17/2019 at [facility] [employer] 03/05/2022 [id number] 10 / / [id number] Description:Left JJ stent pl aced by dr. Cohen Insurance [facility] ACCESS CHOICE ANTH ACCESS CHOICE Advance Directives For more information, please contact: [phone] * Full Code (Latest Code Status on File) Date Activated Date Inactivated Comments 07/15/2019 4:22 PM 07/17/2019 10:05 PM Care Teams Electric Mule Operator Relationship Specialty Start Date End Date Govind Christopher MD PCP - General Critical Care Med 11/23/21 Unknown, Notinfile 11/23/21 Aidan Maynard MD Consulting Physician Urology 07/17/19
--- OUTSIDE RECORDS SUMMARY | 2024-09-10 13:45 | XMS_ITS | Encounter Summary ---
Author Organization [facility] Address [address] [place] [address] Care Team Providers Care Counterintelligence Specialist Name Role Phone Govind Christopher MD Primary Care Provider [phone] Encounter Details Date Type Department Care Team (Late st Contact Info) Description 01/20/2022 Abstract [facility] Internal Medicine [address] [address] Govind Christopher MD [address] [place] [address] Social History Tobacco Use Types Packs/Day Years Used Date Smoking Tobacco: Never Smokeless Tobacco: Never Alcohol Use Standard Drinks/Week Comments No 0 (1 standard drink = 0.6 oz pur e alcohol) Sex and Gender Information Value Date Recorded Sex Assigned at Not on file Legal 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 Male 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 Gender Identity Not on file Sexual Orientation Not on file documented as of this encounter Plan of Treatment Upcoming Encounters Date Type Department Care Team (Late st Contact Info) Description 09/10/2025 2:00 PM CDT Office Visit [facility] Internal Medicine [facility] [address] [place] [address] Govind Christopher MD [address] [place] [address] documented as of this encounter Visit Diagnoses Not on filedocumented in this encounter Additional Health Concerns Assessment Noted Time PHQ-9 Depression Total Score: 1 11/09/19 22 10:39 AM CDT documented as of this encounter Care Teams Counterintelligence Specialist Relationship Specialty Start Date End Date Govind Christopher MD [address] [place] [address] PCP - General Internal Medicine 07/15/18 documented as of this encounter
--- OUTSIDE RECORDS SUMMARY | 2024-09-10 13:45 | XMS_ITS | Encounter Summary ---
Author Organization [facility] Address [address] [place] [address] Care Team Providers Care Military Science Instructor Name Role Phone Govind Christopher MD Primary Care Provider Encounter Details Date Type Department Care Team (Late st Contact Info) Description 2000 Outpatient Historical [facility] - [facility] [address] 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 [address] [address] Govind Christopher MD [address] [facility] [address] [address] documented as of this encounter Visit Diagnoses Not on filedocumented in this encounter Care Teams Military Science Instructor Relationship Specialty Start Date End Date Govind Chritsopher MD [address] [place] [address] PCP - General Internal Medicine 07/15/18 documented as of this encounter
--- OUTSIDE RECORDS SUMMARY | 2024-09-10 13:45 | XMS_ITS | Encounter Summary ---
Author Organization [facility] Address [address] [place] [address] Care Team Providers Care Power Manager Name Role Phone Unknown, Notinfile Primary Care Provider Unavail able Govind Christopher MD Primary Care Provider [phone] Unknown, Notinfile Unavailable Unavailable Aidan Maynard MD Unavailable [phone] Encounter Details Date Type Department Care Team (Late st Contact Info) Description 07/23/2019 Telephone [facility] - Interventional Radiology [address] [place] [address] Virginia Tovar RN Social History Tobacco Use Types Packs/Day Years Used Date Smoking Tobacco: Never Smokeless Tobacco: Never Alcohol Use Standard Drinks/Week Comments Yes 0 (1 standard drink = 0.6 oz pur e alcohol) rare Sex and Gender Information Value Date Recorded Sex Assigned at Not on file Legal 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
--- OUTSIDE RECORDS SUMMARY | 2024-09-10 13:45 | XMS_ITS | Encounter Summary ---
Author Organization [facility] Address [address] [place] [address] Care Team Providers Care Chucking Machine Operator Name Role Phone Govind Christopher MD Primary Care Provider Encounter Details Date Type Department Care Team (Late st Contact Info) Description 2000 Outpatient Historical [facility] Pediatrics - 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 A RED [address] [facility] [address] [address] Govind Christopher MD [address] [facility] [address] [address] documented as of this encounter Visit Diagnoses Not on filedocumented in this encounter Care Teams Chucking Machine Operator Relationship Specialty Start Date End Date Govind Christopher MD [address] [place] [address] PCP - General Internal Medicine 07/15/18 documented as of this encounter
--- OUTSIDE RECORDS SUMMARY | 2024-09-10 13:45 | XMS_ITS | Clinical Summary ---
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 Cohen Insurance [employer] ACCESS CHOICE [employer] ACCESS CHOICE [employer] ACCESS CHOICE [employer] CHOICE Advance Directives For more information, please contact: [phone] * Full Code (Latest Code Status on File) Date Activated Date Inactivated Comments 07/15/2019 4:22 PM 07/17/2019 10:05 PM Care Teams Resident Care Director Relationship Specialty Start Date End Date Govind Christopher MD PCP - General Critical Care Med 11/23/21 Unknown, Notinfile 11/23/21 Aidan Maynard MD Consulting Physician Urology 07/17/19
--- OUTSIDE RECORDS SUMMARY | 2024-09-10 13:45 | XMS_ITS | Clinical Summary ---
Author Organization [facility] Address [address] [place] [address] Phone Care Team Providers Care Stone Sandblaster Name Role Phone Govind Christopher MD Primary Care Provider [phone] Allergies Active Allergy Reactions Criticality Noted Date [...] Amount: 20 mg 60 Tablet 5 Active hydroCHLOROthiaz rox 25 mg tablet Take 1 Tablet (25 mg) by mouth daily. 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 Observation recommended. Generalized anxiety disorder 09/02/2019 High cholesterol 11/25/2014 Encounters Date Type Department Care Team Description 09/09/2024 2:00 PM CDT Office Visit [facility] Internal [facility] [address] [facility] [address] [place] [phone] Govind Christopher MD Routine general medical examination at a health care facility (Primary Dx); Renal tubular acidosis; Kidney stones; High cholesterol; Hepatic steatosis; Attention deficit disorder (ADD) in adult; Hypercalciuria; Hyperglycemia 09/09/2024 Telephone [facility] Internal Medicine [facility] RED [address] [place] [address] Govind Christopher MD Lab Results 09/05/2024 Telephone [facility] Internal [facility] RED [address] [place] [address] Govind Christopher MD Provider Call 07/18/2024 Refill [facility] Internal Medicine [facility] RED [address] [address] Govind Christopher MD Acute reaction to situational stress; Attention deficit 06/24/2024 External Device Data STL ABSTRACTION Provider, Abstract 06/24/2024 External Device Data STL ABSTRACTION Provider, Abstract 06/22/2024 [facility] Internal Medicine [facility] [place] A RED [address] [address] Govind Christopher MD 06/21/2024 External Device Data [...] on file Legal Sex Male 4:34 AM SHORER Gender Identity Not on file Sexual Orientation Not on file Last Filed Vital Signs Vital Sign Reading Time Taken Comments Blood Pressure 138/78 09/09/2024 2:00 PM CDT Pulse 94 09/09/2024 2:00 PM CDT Temperature 36.4 C (97.5 F) 09/09/2024 2:00 PM CDT Respiratory Rate 12 09/04/2023 1:52 PM CDT Oxygen Saturation 95% 09/09/2024 2:00 PM CDT Inhaled Oxygen Concentration - - Weight 100.7 kg (222 lb) 09/09/2024 2:00 PM CDT Height 160 cm (5' 3) 09/09/2024 2:00 PM CDT Body Mass Index 39.33 09/09/2024 2:00 PM CDT Plan of Treatment Upcoming Encounters Date Type Department Care Team (Late st Contact Info) Description 09/10/2025 2:00 PM CDT Office Visit [facility] Internal Medicine [facility] [place] [facility] [address] [facility] [address] [place] [address] Govind Christopher MD [address] [facility] [address] [place] [address] Health Maintenance Due Date Last [...] HPV VACCINES Completed 06/21/2015, 11/2014, 10/12/2014 Insurance [facility] BLUE ACCESS CHOICE Care Teams Stone Sandblaster Relationship Specialty Start Date End Date Govind Christopher MD [address] [place] [address] PCP - General Internal Medicine 07/15/18
--- OUTSIDE RECORDS SUMMARY | 2024-09-10 13:45 | XMS_ITS | Clinical Summary ---
Author Organization [facility] Address [address] [facility] [place] [address] Care Team Providers Care Director Of Product Development Name Role Phone Unavailable Primary Care Provider Unavailabl e Source Comments [facility],non-owned Affiliates and Associated Physician Practices is amultiple site organization consisting of ambulatory clinics and hospital sitesin [place], [place], [place] and [place]. This disclosure is being madepursuant to the Care Everywhere program and may not contain all information available regarding this patient. Last updated 18.[facility] Allergies No known active allergies Medications * [...] on file Legal Sex Male 12:49 PM POWER AND RECOVERY SHIFT ENGINEER Gender Identity Not on file Sexual Orientation Not on file Last Filed Vital Signs Vital Sign Reading Time Taken Comments Blood Pressure 90/56 05/01/2011 8:32 AM POWER AND RECOVERY SHIFT ENGINEER Pulse 78 05/01/2011 8:32 AM POWER AND RECOVERY SHIFT ENGINEER Temperature - - Respiratory Rate 18 05/01/2011 8:32 AM POWER AND RECOVERY SHIFT ENGINEER Oxygen Saturation - - Inhaled Oxygen Concentration - - Weight 41.4 kg (91 lb 4.8 oz) 05/01/2011 8:32 AM POWER AND RECOVERY SHIFT ENGINEER Height 131.8 cm (4' 3.89) 05/01/2011 8:32 AM CS T Body Mass Index 23.84 05/01/2011 8:32 AM POWER AND RECOVERY SHIFT ENGINEER Plan of Treatment Health Maintenance Due Date [...]
--- OUTSIDE RECORDS SUMMARY | 2024-09-10 13:45 | XMS_ITS | Clinical Summary ---
Author Organization [facility] Address [address] [place] [address] Phone Care Team Providers Care Lawyer Real Estate Name Role Phone Govind Christopher MD Primary Care Provider [phone] Allergies Active Allergy Reactions Criticality Noted Date [...] Description 07/09/2024 11:20 AM CDT Office Visit [facility] [address] [place] [address] Jeremy Curry MD Nephrolithiasis (Primary Dx); 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 Orders Only [facility] [address] [place] [address] Naay Palacio MA Nephrolithiasis (Primary Dx) from Last [...] 11:23 AM CDT Height 160 cm (5' 3) 07/09/2024 11:23 AM CDT Body Mass Index 40.39 07/09/2024 11:23 AM CDT Plan of Treatment Upcoming Encounters Date Type Department Care Team (Late st Contact Info) Description 01/12/2025 1:00 PM CDT Office Visit [facility] [address] [facility] [address] [place] [phone] Gurdeep Cardoza PA [address] [place] [address] 11/10/2025 9:00 AM CDT Office Visit [facility] [address] [place], [place] [phone] Jeremy Curry MD [address] [place], [place] [phone] Health Maintenance Due Date Last Done Comments Pneumococcal PPSV23 Highest Risk Adult (2 of 3 - PPSV23) 02/26/2019 03/13/2001, 2000, 2000, Additional history exists Influenza Vaccine (Season Ended) 2024 03/07/20 22 Procedures Procedure Name Priority Date/Time Associated Diagnosis Comments RENAL FUNCTION PANEL (RFP) Routine 09/05/2024 12:39 PM CDT Nephrolithiasis from Last 3 Months Results * (ABNORMAL) Renal Function Panel (RFP) (09/05/2024 12:39 PM CDT) Glucose, Serum/Plasma 107(H) 65 - 99 mg/dL [facility] ([facility]) Comment: Fasting reference interval For someone without known diabetes, a glucose value between 100 and 125 mg/dL is consistent with prediabetes and should be confirmed with a follow-up test. Urea nitrogen, Serum/Plasma (BUN) 14 7 - 25 mg/dL [facility] ([facility]) Creatinine, Serum/Plasma 0.88 0.60 - 1.24 mg/dL [facility] ([facility]) Estimated Glomerular Filtration Rate (eGFR) 123 > OR = 60 mL/min/1.7 3m2 [facility] ([facility]) Urea nitrogen/Creati nine, Serum/Plasma SEE NOTE: 6 - 22 (calc) [facility] ([facility]) Comment: Not Reported: BUN and Creatinine are within reference range. Sodium, Serum/Plasma 142 135 - 146 mmol/L [facility] ([facility]) Potassium, Serum/Plasma 4.2 3.5 - 5.3 mmol/L [facility] ([facility]) Chloride, Serum/Plasma 104 98 - 110 mmol/L [facility] ([facility]) Carbon dioxide CO2), total, Serum/Plasma 29 20 - 32 mmol/L [facility] ([facility]) Calcium, Serum/Plasma 9.8 8.6 - 10.3 mg/dL [facility] ([facility]) Phosphate, Serum/Plasma 2.8 2.5 - 4.5 mg/dL [facility] ([facility]) Albumin, Serum/Plasma 4.6 3.6 - 5.1 g/dL [facility] ([facility]) Blood (Blood, Venous) 09/05/2024 12:39 PM CDT 09/05/2024 12:40 PM CDT Narrative Resulting Agency Comment Performing Organization Information: Site ID: [facility] Address: [address] [id number] Director: Mila Diaz us Jeremy Curry MD LAB BLOOD ORDERABLES Final Resul t [facility]) from Last 3 Months Insurance (ANTH) Care Teams Lawyer Real Estate Relationship Specialty Start Date End Date Govind Christopher MD [address] [place] [address] PCP - General Internal Medicine 08/05/19
--- OUTSIDE RECORDS SUMMARY | 2024-09-10 13:45 | XMS_ITS | Encounter Summary ---
Author Organization [facility] Address [address] [place] [address] Care Team Providers Care Calcine Furnace Tender Name Role Phone Govind Christopher MD Primary Care Provider Reason for Visit * Reason Comments Physical Encounter Details Date Type Department Care Team (Late st Contact Info) Description 09/09/2024 2:00 PM CDT Office Visit [facility] Internal Medicine Medical [facility] [address] [facility] [address] [place] [address] Govind Christopher MD [address] [facility] [address] [place] [address] Routine general medical examination at a health care facility (Primary Dx); Renal tubular acidosis; Kidney stones; High cholesterol; Hepatic steatosis; Attention deficit disorder (ADD) in adult; Hypercalciuria; Hyperglycemia Social History Tobacco Use Types Packs/Day Years [...] on file 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 Gender Identity Not on file Sexual Orientation Not on file documented as of this encounter Last Filed Vital Signs Vital Sign Reading Time Taken Comments Blood Pressure 138/78 09/09/2024 2:00 PM CDT Pulse 94 09/09/2024 2:00 PM CDT Temperature 36.4 C (97.5 F) 09/09/2024 2:00 PM CDT Respiratory Rate - - Oxygen Saturation 95% 09/09/2024 2:00 PM CDT Inhaled Oxygen Concentration - - Weight 100.7 kg (222 lb) 09/09/2024 2:00 PM CDT Height 160 cm (5' 3) 09/09/2024 2:00 PM CDT Body Mass Index 39.33 09/09/2024 2:00 PM CDT documented in this encounter Plan of Treatment Upcoming Encounters Date Type Department Care Team (Late st Contact Info) Description 09/10/2025 2:00 PM CDT Office Visit [facility] Internal Medicine Medical [facility] [address] [place] [phone] Govind Christopher MD [address] [place] [phone] Scheduled Orders Name Type Priority Associated Diagnoses Orde r Schedule HEMOGLOBIN A1C Lab Routine Hyperglycemia Expected: 09/09/2024, Expires: 09/09/2025 documented as of this encounter Visit Diagnoses Diagnosis Routine general medical examination at a health care facility- Primary Renal tubular acidosis Other specified disorders resulting from impaired renal function Kidney stones Calculus of kidney High cholesterol Pure hypercholesterolemia Hepatic steatosis Other chronic nonalcoholic liver disease Attention deficit disorder (ADD) in adult Hypercalciuria Unspecified disorders of calcium metabolism Hyperglycemia Other abnormal glucose documented in this encounter Additional Health Concerns Assessment Noted Time PHQ-9 Depression Total Score: 1 09/10/19 25 2:03 PM CDT documented as of this encounter Care Teams Calcine Furnace Tender Relationship Specialty Start Date End Date Govind Christopher MD [address] [place] [phone] PCP - General Internal Medicine 07/15/18 documented as of this encounter
--- OUTSIDE RECORDS SUMMARY | 2024-09-10 13:45 | XMS_ITS | Encounter Summary ---
Author Organization [facility] Address [address] [facility] Attn: [place] [address] Care Team Providers Care Sausage Smoker Name Role Phone Govind Christopher MD Primary Care Provider Encounter Details Date Type Department Care Team (Late st Contact Info) Description 2000 Inpatient Historical Shannon Orellana MD NO ADDRESS ON FILE Yadira Pinzon MD [address] [place] [address] [place] [address] Twin, mate liveborn, born in hospital, delivered by delivery (Primary Dx) Social History Tobacco Use Types Packs/Day Years Used Date Smoking Tobacco: Never Assessed Sex and Gender Information Value Date Recorded Sex Assigned at Not on file 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 Gender Identity Not on file Sexual Orientation Not on file documented as of this encounter Plan of Treatment Upcoming Encounters Date Type Department Care Team (Late st Contact Info) Description 09/10/2025 2:00 PM CDT Office Visit [facility] Internal Medicine [facility] [place] [facility] [address] [facility] [address] [place] [address] Govind Christopher MD [address] [place] [address] [address] [place] [address] documented as of this encounter Visit Diagnoses Diagnosis Twin, mate liveborn, born in hospital, delivered by delivery- Primary documented in this encounter Care Teams Sausage Smoker Relationship Specialty Start Date End Date Govind Christopher MD [address] [place] [phone] PCP - General Internal Medicine 07/15/18 documented as of this encounter
== END 2024-09-10 13:38 | disposition home or self-care (01) ==
PROVIDERS: Visit Provider Urology
DX: N20.0 Calculus of kidney (principal)
CPT/HCPCS: 74018